=== PATIENT | female | born 1965 | race Two or more races ===

== ENCOUNTER 2024-06-11 09:18 | Outpatient (RCR) | payer MEDICARE, MEDICAID, SELFPAY ==
--- NOTE | 2024-06-23 23:42 | CTCFLWUP_ITS ---
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 S/p right breast mastectomy (12/28/2017) followed by TRAM flap reconstruction S/p TCH/Perjeta followed by Herceptin/Perjeta treatment for a total of 1 year. Intraductal papilloma of the left breast (06/03/2023) REASON FOR TODAY?S VISIT: This is office follow-up visit. Ms. Burdick is here at [facility]. She is complaing of pain in her left arm . stuart new and persistant . no injuries . She also has coronary artery stent placement currently she is on aspirin and clopidogrel . She has few bruises most likely secondary to these medications. She denies any cough, chest pain, abdominal pain or leg cramps. HISTORY OF PRESENT ILLNESS: This is a 58-year-old Northern Irish-speaking female with the following oncology history. 12/28/2017: The patient had surgery done for right breast mass 01/20/2018: Ms. Perry had right breast mastectomy 03/09/2018: Received 1 cycle of TCH chemotherapy at Dr. Lange's office in [place]. 03/30/2018 - 06/22/2018: Received 5 cycles of TCH plus Perjeta. 07/13/2018 - 03/23/2019: She received adjuvant Herceptin and Perjeta every 3 weeks for a total of 12 cy cles. 03/15/2023: MRI of the brain with and without contrast 04/14/2023: PET/CT scan 04/14/2023: Unilateral left breast screening digital mammogram? 04/14/2023: Left breast ultrasound? 05/02/2023: Bilateral diagnostic mammograms? 05/02/2023: Right breast ultrasound 05/16/2023: Bilateral MRIs of the breast with and without contrast 05/17/2023: Repeat left breast ultrasound to be done in the presence of radiologist and biopsy of the mass if it is found in the left breast is requested. PAST MEDICAL HISTORY: Right breast cancer - dx 2018 HTN Diabetes Covid - 2019 Anemia GERD Hyperlipidemia PAST SURGICAL HISTORY: Right breast reconstruction - 2019- Dr. Covarrubias - Right Mastecomy; sentinel lymphadectomy - 01/20/2018 Right breast lumpectomy 12/28/2017 Right ankle fracture repair - 2015 Cholecystec dimtiry - 12/27/2006 Tubal ligation - 12/22/2003 Peritoneal repair femoral and recurrent right inguinal hernia - 07/12/2001 Appendectomy - age 24 MEDICATIONS: 1. aspirin - 81 mg 1 tab In the morning 2. atorvastatin - 80 mg 1 tab Daily 3. carvedilol - 3.125 mg 1 tab Twice a Day 4. Citracal + D Slow Release - 600 mg-12.5 mcg (500 unit) 1 tab one tab po q daily 5. clopidogrel - 75 mg 1 tab Daily 6. ferrous sulfate - 325 mg (65 mg iron) 1 tab one tab po q daily with small glass of orange juic 7. gabapentin - 300 mg 1 Capsule Three times a day 8. Januvia - 100 mg 1 tab Daily 9. lisinopril-hydrochlorothiazide - 20-25 mg 1 tab Daily 10. metFORMIN - 1,000 mg 1 tab Twice a Day 11. Xanax - 0.25 mg 1 tab one po three times a day prn anxiety Medications Last Reconciled by Kenneth Mead MA on 04/16/2024 ALLERGIES: No Known Drug Allergies REVIEW OF SYSTEMS: Neurological: No headache, seizures or blurring of vision. Gastrointestinal: No nausea, vomiting, diarrhea or constipation. Cardiovascular: No palpitations or angina pains. Respiratory: No cough, chest pain or shortness of breath. PHYSICAL EXAMINATION: VITAL SIGNS: Temperature?99, B/P?152/98, Oxygen?Saturation?97% Weight?178?lbs PAIN: 0 - No pain EYE: Conjunctivae is white MOUTH: Oral cavity is dry. Ms. Burdick has reconstructed right breast with TRAM flap. No areas of tenderness noted. No masses palpable. Left breast nipple retraction is present. No areas of tenderness in the left breast. CHEST: Clear to auscultation. No wheezes or rales audible. CARDIAC: Rhythm regular, no murmurs or gallops present. ABDOMEN: Soft. No hepatosplenomegaly. EXTREMITIES: No pedal edema or cyanosis. ASSESSMENT and plan : # 1 Stage IIIa ER negative, OH negative, HER2/marla overexpressed invasive micropapillary carcinoma o f the right breast. Diasgnosed in 12/2017 Initial lumpectomy but margins negative so had right mastectomy and reconstruction She had TCH followed bt TCHP and adjuvant HP completed Doing well with no eveidence of recuurence #2 Left breast retroareolar mass lesion in the left breast Ultrasound-guided biopsy of the left breas t lesion showed intraductal papilloma Planned for mastectomy #3 MRI scan of the brain showed punctate focus increased signal in the right parietal white matter del angel spicious for demyelinating disease. #4bone density normal on calcium and vit D3 #5 left arm pain Ultrasound to evaluate for any blood clot Advised to go to ER but patient wants ultrasound only Follow up once complete Electronically Signed by Dr Jefferson CC: Ricky?Nazario,? PCP: Yomi eBrry Referring: Yomi Berry This document was completed utilizing speech recognition software. Grammatical errors, random word in sertions, pronoun errors, and incomplete sentences are an occasional consequence of this system due t o software limitations, ambient noise, and hardware issues. Any formal questions or concerns about th e content, text or information contained within the body of this dictation should be directly address ed to the provider for clarification.
== END 2024-06-16 23:59 | disposition home or self-care (01) ==
LOC: SCTC 09:18
PROVIDERS: PCP Family Medicine; Referring Provider Family Medicine; Visit Provider Internal Medicine Hematology & Oncology
DX: Z08 Encounter for follow-up examination after completed treatment for malignant neoplasm (principal); Z85.3 Personal history of malignant neoplasm of breast; Z90.11 Acquired absence of right breast and nipple; D24.2 Benign neoplasm of left breast; R90.82 White matter disease, unspecified; M79.602 Pain in left arm
CPT/HCPCS: 99212; G0463

== ENCOUNTER 2024-07-02 12:25 | Outpatient (RCR) | payer MEDICARE, MEDICAID, SELFPAY ==
--- NOTE | 2024-07-16 00:47 | CTCFLWUP_ITS ---
Patient: KENNETH ELISE : 1965 Page 6 of 7 FOLLOW UP NOTE DATE OF SERVICE: 07/02/2024 NAME: KENNETH ELISE ACCOUNT: [id number] : 1965 AGE: 59 INTERVAL HISTORY: Patient doing well. ONCOLOGY HISTORY: DIAGNOSIS: Invasive adenocarcinoma DATE OF DIAGNOSIS: 12/28/2017 STAGE/TNM: [id number] TREATMENT HISTORY: Care?Plan Start?Date Cycle Day Intent HISTORY OF PRESENT ILLNESS: This is a 59-year-old Italian-speaking female with the following oncology history. 12/28/2017: The patient had surgery done for right breast mass 01/20/2018: Ms. Perry had right breast mastectomy 03/09/2018: Received 1 cycle of TCH chemotherapy at Dr. Lange's office in [place]. 03/30/2018 - 06/22/2018: Received 5 cycles of TCH plus Perjeta. 07/13/2018 - 03/23/2019: She received adjuvant Herceptin and Perjeta every 3 weeks for a total of 12 cy cles. 03/15/2023: MRI of the brain with and without contrast 04/14/2023: PET/CT scan 04/14/2023: Unilateral left breast screening digital mammogram? 04/14/2023: Left breast ultrasound? 05/02/2023: Bilateral diagnostic mammograms? 05/02/2023: Right breast ultrasound 05/16/2023: Bilateral MRIs of the breast with and without contrast 05/17/2023: Repeat left breast ultrasound to be done in the presence of radiologist and biopsy of the mass if it is found in the left breast is requested. OTHER MEDICAL HISTORY/CONDITIONS: Right breast cancer - dx 2018 HTN Diabetes Covid - 2019 Anemia GERD Hyperlipidemia Right breast reconstruction - 2019- Dr. 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 aspirin - 81 mg 1 tab In the morning 2. atorvastatin - 80 mg 1 tab Daily 3. calcium - 100 mg 1 Capsule Daily 4. carvedilol - 25 mg 1 tab Twice a Day 5. clonidine - 0.1 mg 1 tab Daily 6. clopidogrel - 75 mg 1 tab Daily 7. Cozaar - 100 mg 1 tab Daily 8. ferrous sulfate - 325 mg (65 mg iron) 1 tab one tab po q daily with small glass of orange juic 9. gabapentin - 300 mg 1 Capsule Three times a day 10. glipiZIDE - 5 mg 1 tab Twice a Day 11. lisinopril-hydrochlorothiazide - 20-25 mg 1 tab Daily 12. metFORMIN - 1,000 mg 1 tab Twice a Day 13. Ozempic - 0.25 mg or 0.5 mg(2 mg/1.5 mL) 1 Weekly Medications Last Reconciled by Abigail Welsh MA on 07/02/2024 ALLERGIES: No Known Drug Allergies REVIEW OF SYSTEMS: A complete 14-point review of systems was performed and is negative except as noted in interval histo ry. PHYSICAL EXAMINATION: VITAL SIGNS: Temperature?98.1, B/P?153/102, Oxygen?Saturation?98% Weight?186?lbs (Change?since?:?-1?lbs) PAIN: 2 - Mild pain ECOG Performance Status: 0 - Asymptomatic and fully active GENERAL APPEARANCE: Appears well, in no apparent distress, appropriately interactive. HEENT: Normocephalic, no temporal wasting, normal conjunctiva, no scleral icterus, normal hearing, li ps without lesions, neck normal range of motion. CARDIOVASCULAR: Not assessed. PULMONARY: Normal respiratory effort, no respiratory distress or use of accessory muscles, speaking i n full sentences, no tachypnea. EXTREMITIES: No pedal edema or cyanosis. SKIN: Normal skin appearance. NEUROLOGIC: Alert and oriented x4. PSHYCHIATRIC: Appropriate affect, mood normal, behavior normal, intact thought and speech. 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 Diasgnosed in 12/2017 Initial lumpectomy but margins negative so had right mastectom y and reconstruction She had TCH followed bt TCHP and adjuvant HP completed Doing well with no eveide nce of recuurence #2 Left breast retroareolar mass lesion in the left breast Ultrasound-guided biopsy of the left breas t lesion showed intraductal papilloma Planned for mastectomy #3 MRI scan of the brain showed punctate focus increased signal in the right parietal white matter del angel spicious for demyelinating disease. #4bone density normal on calcium and vit D3 #5 left arm pain Ultrasound to evaluate for any blood dieter t Advised to go to ER but patient wants ultrasound only Follow up once complete ORDERS: Cbc,cmp,ca 15-3 GI referrel RETURN TO CLINIC: 4 months BILLING AND COMPLIANCE: I reviewed external records from providers outside my specialty as summarized above. I spent a total of 50 minutes on this patient?s care on the day of their visit excluding time spent related to any bi lled procedures. This time includes time spent with the patient as well as time spent documenting in the medical record, reviewing patients records and tests, obtaining history, placing orders, communi cating with other healthcare professionals, counseling the patient, family or caregiver, and/or care coordination for the diagnoses above. Electronically Signed by: Case Jefferson MD T: 12:45 AM CC: Ricky?Nazario,? PCP: Case Jefferson Referring: Yomi Berry This document was completed utilizing speech recognition software. Grammatical errors, random word in sertions, pronoun errors, and incomplete sentences are an occasional consequence of this system due t o software limitations, ambient noise, and hardware issues. Any formal questions or concerns about th e content, text or information contained within the body of this dictation should be directly address ed to the provider for clarification.
== END 2024-07-17 23:59 | disposition home or self-care (01) ==
LOC: SCTC 12:25
PROVIDERS: PCP Family Medicine; Referring Provider Internal Medicine Hematology & Oncology; Visit Provider Internal Medicine Hematology & Oncology
DX: C50.112 Malignant neoplasm of central portion of left female breast (principal); Z85.3 Personal history of malignant neoplasm of breast; Z90.11 Acquired absence of right breast and nipple; M79.602 Pain in left arm
CPT/HCPCS: 99212; G0463

== ENCOUNTER → 2024-07-02 | Outpatient (CLI) | payer MEDICARE, MEDICAID, SELFPAY ==
--- NOTE | 2024-07-02 08:44 | XR_ITS ---
Examination: Duplex scan of the upper extremity, unilateral left Date and time of exam: July 02, 2024 0929 hours INDICATIONS: Left arm swelling beginning 2 months ago Technique: Duplex scan of the extremity veins using B-mode/grayscale imaging and Doppler spectral analysis and color flow Attention is directed to internal echogenicity, compression and augmentation involving these veins, color flow assessment, spectral analysis Findings: Major deep venous structures in the extremity demonstrate normal course and caliber. There is no evidence of deep vein thrombosis. Normal color flow and spectral analysis Impression: Negative for DVT..
[2024-07-02 10:27] LABS: Basophils # (Auto) 0.1 Thou/mm3 (0.0-0.2); Basophils % (Auto) 1 % (0-2.5); Eosinophils # (Auto) 0.5 Thou/mm3 (0.0-0.5); Eosinophils % (Auto) 5 % (0-10); Hematocrit 37.2 % (36.0-46.0); Hemoglobin 12.3 g/dL (12.0-16.0); Immature Granulocytes % (Auto) 0 % (0-0); Immature Granulocytes Auto 0.03 Thou/mm3 (0.00-0.00); Lymphocytes # (Auto) 2.3 Thou/mm3 (1.0-4.8); Lymphocytes % (Auto) 23 % (10-50); Mean Corpuscular HGB Conc 33.1 g/dl (31.0-37.0); Mean Corpuscular Hemoglobin 27.8 pg (25.0-35.0); Mean Corpuscular Volume 84 fL (80-100); Monocytes # (Auto) 0.5 Thou/mm3 (0.0-0.8); Monocytes % (Auto) 5 % (0-12); Neutrophils # (Auto) 6.7 Thou/mm3 (1.8-7.7); Neutrophils % (Auto) 67 % (37-80); Nucleated Red Blood Cell % 0 /100 WBC (0); Platelet Count 282 Thou/mm3 (140-440); RDW Standard Deviation 41.3 fL (36.4-46.3); Red Blood Count 4.43 Miln/mm3 (4.00-5.20)
[2024-07-02 11:13] LABS: Alanine Aminotransferase 20 U/L (10-49); Albumin, Serum 4.9 gm/dL (3.4-4.8); Alkaline Phosphatase 133 U/L (46-116); Anion Gap 9 (7-16); Aspartate Amino Transferase < 8 U/L (0-34); BUN/Creatinine Ratio 23 Ratio (12-20); Bilirubin,Total 0.4 mg/dL (0.3-1.2); Blood Urea Nitrogen 21 mg/dL (9-23); Calcium 10.6 mg/dL (8.3-10.6); Calcium (Corrected) 10.6 mg/dL (8.5-10.1); Carbon Dioxide 24.3 mMol/L (20.0-31.0); Chloride 106 mMol/L (98-107); Creatinine (Component) 0.9 mg/dL (0.6-1.3); Globulin 2.5 gm/dL (2.3-3.5); Glucose 94 mg/dL (74-106); Osmolality,Calculated 280 (275-295); Potassium 4.8 mMol/L (3.4-5.1); Sodium 139 mMol/L (136-145); Total Protein 7.4 gm/dL (5.7-8.2); eGFR > 60 See Note
== END | disposition home or self-care (01) ==
LOC: CDIM 09:08 → SCTO 10:00
PROVIDERS: PCP Family Medicine; Referring Provider Internal Medicine Hematology & Oncology; Visit Provider Radiology Diagnostic Radiology
DX: C50.919 Malignant neoplasm of unspecified site of unspecified female breast (principal); I82.622 Acute embolism and thrombosis of deep veins of left upper extremity
CPT/HCPCS: 36415; 80053; 85025; 93971

== ENCOUNTER → 2024-08-28 | Outpatient (CLI) | payer MEDICARE, SELFPAY ==
[2024-08-28 09:18] LABS: Basophils # (Auto) 0.1 Thou/mm3 (0.0-0.2); Basophils % (Auto) 1 % (0-2.5); Eosinophils # (Auto) 0.3 Thou/mm3 (0.0-0.5); Eosinophils % (Auto) 5 % (0-10); Hematocrit 34.8 % (36.0-46.0); Hemoglobin 11.3 g/dL (12.0-16.0); Immature Granulocytes % (Auto) 0 % (0-0); Immature Granulocytes Auto 0.02 Thou/mm3 (0.00-0.00); Lymphocytes # (Auto) 1.6 Thou/mm3 (1.0-4.8); Lymphocytes % (Auto) 24 % (10-50); Mean Corpuscular HGB Conc 32.5 g/dl (31.0-37.0); Mean Corpuscular Hemoglobin 27.2 pg (25.0-35.0); Mean Corpuscular Volume 84 fL (80-100); Monocytes # (Auto) 0.5 Thou/mm3 (0.0-0.8); Monocytes % (Auto) 8 % (0-12); Neutrophils # (Auto) 4.1 Thou/mm3 (1.8-7.7); Neutrophils % (Auto) 62 % (37-80); Nucleated Red Blood Cell % 0 /100 WBC (0); Platelet Count 265 Thou/mm3 (140-440); RDW Standard Deviation 44.5 fL (36.4-46.3); Red Blood Count 4.15 Miln/mm3 (4.00-5.20); White Blood Count 6.6 Thou/mm3 (3.6-11.0)
[2024-08-28 09:31] LABS: Partial Thromboplastin Time 25.1 Seconds (22.0-36.0); Prothrombin Time 10.7 Seconds (9.0-12.2)
[2024-08-28 09:37] LABS: Anion Gap 6 (7-16); BUN/Creatinine Ratio 24 Ratio (12-20); Blood Urea Nitrogen 19 mg/dL (9-23); Calcium 10.1 mg/dL (8.3-10.6); Carbon Dioxide 26.7 mMol/L (20.0-31.0); Chloride 109 mMol/L (98-107); Creatinine (Component) 0.8 mg/dL (0.6-1.3); Glucose 90 mg/dL (74-106); Osmolality,Calculated 285 (275-295); Potassium 4.2 mMol/L (3.4-5.1); Sodium 142 mMol/L (136-145); eGFR > 60 See Note
== END | disposition home or self-care (01) ==
LOC: COPL 08:29
PROVIDERS: PCP Internal Medicine; Referring Provider Internal Medicine; Visit Provider Internal Medicine
DX: I25.10 Atherosclerotic heart disease of native coronary artery without angina pectoris (principal); I48.91 Unspecified atrial fibrillation
CPT/HCPCS: 36415; 80048; 85025; 85610; 85730

== ENCOUNTER → 2024-09-28 | Outpatient (CLI) | payer MEDICARE, MEDICAID, SELFPAY ==
--- NOTE | 2024-09-28 09:00 | XR_ITS ---
Examination: Breast ultrasound, unilateral, left complete Date and time of exam: September 28, 2024 0900 hrs. Indications: Left breast pain one year, 2:00 11:00 7:00 nodule Left breast sonogram April 05, 2024 Technique: Real-time wallace scale ultrasonographic imaging performed left breast including all 4 quadrants as well as nipple retroareolar and axillary region. Findings: 2:00 nodule lobular margins 7 x 5 mm 3:00 nodule circumscribed 4 x 3 mm 5:00 nodule lobular margins 4 x 4 3 7:00 circumscribed nodules 10:00 circumscribed nodule 4 x 4 Oval mass lobular margins 10 x 4 mm Retroareolar nodule 15 x 16 x 15 mm with breast biopsy marker Impression: BI-RADS Category 4: Suspicious for malignancy Enlarging suspicious mass retroareolar region left breast, recommend rebiopsy
== END | disposition home or self-care (01) ==
PROVIDERS: PCP Family Medicine; Referring Provider Internal Medicine Hematology & Oncology; Visit Provider Internal Medicine Hematology & Oncology
DX: N63.42 Unspecified lump in left breast, subareolar (principal); C50.919 Malignant neoplasm of unspecified site of unspecified female breast
CPT/HCPCS: 76641

== ENCOUNTER 2024-11-28 14:31 | Outpatient (RCR) | payer MEDICARE, MEDICAID, SELFPAY ==
--- NOTE | 2024-12-06 14:17 | CTCFLWUP_ITS ---
Patient: KENNETH BURDICK : 1965 Page 8 of 8 FOLLOW UP NOTE DATE OF SERVICE: 11/28/2024 NAME: KENNETH BURDICK ACCOUNT: [id number] : 1965 AGE: 59 INTERVAL HISTORY: Chief Complaint Suspicious mass in left breast found on ultrasound, desire for mastectomy and breast reconstruction History of Present Illness Kenneth Parks, a patient with a history of breast cancer, presents for follow-up regarding multiple concerns including menopausal symptoms, leg issues, stomach problems, and a recently detected suspicious breast mass. The patient reports ongoing menopausal symptoms, for which she has been considering hormone replacement therapy. However, due to her history of breast cancer, hormone replacement is not recommended. She has been advised to try non- hormonal alternatives such as matcha or black cohosh for symptom relief. Kenneth has been experiencing issues with her legs, which have been managed with blood thinners and dietary changes. A recent ultrasound showed no evidence of blood clots. She also reports stomach problems, for which a referral to gastroenterology was made on July 02 and has been approved. Of significant concern is a suspicious mass detected in the left breast during an ultrasound on September 28. The patient has not yet undergone a biopsy or followed with breast surgeons as recommended. She expresses interest in pursuing a mastectomy, potentially bilateral, with reconstruction. Kenneth previously underwent a mastectomy with TRAM flap reconstruction, performed by Dr. Nguyen (mastectomy) and Dr. Francois (reconstruction). Patient's patient states she want her committed to mastectomy and then follow-up with the plastic surgeon for interval reconstruction she does not want to go to Dr. Ness as previously referred. She is requesting a referral to be sent to Dr Nguyen. She also endorses that she already follows with Patrick and call the office to get to the appointment. She cries frequently during the visit and gets very upset while answering questions to her health. Medications and Supplements - Blood thinners - Matcha - Black cohosh Review of Systems Gastrointestinal: Positive for stomach issues. ONCOLOGY HISTORY: DIAGNOSIS: Invasive adenocarcinoma DATE OF DIAGNOSIS: 12/28/2017 STAGE/TNM: [id number] TREATMENT HISTORY: Care?Plan Start?Date Cycle Day Intent HISTORY OF PRESENT ILLNESS: This is a 59-year-old French-speaking female with the following oncology history. 12/28/2017: The patient had surgery done for right breast mass 01/20/2018: Ms. Perry had right breast mastectomy 03/09/2018: Received 1 cycle of TCH chemotherapy at Dr. Lange's office in [place]. 03/30/2018 - 06/22/2018: Received 5 cycles of TCH plus Perjeta. 07/13/2018 - 03/23/2019: She received adjuvant Herceptin and Perjeta every 3 weeks for a total of 12 cycles. 03/15/2023: MRI of the brain with and without contrast 04/14/2023: PET/CT scan 04/14/2023: Unilateral left breast screening digital mammogram? 04/14/2023: Left breast ultrasound? 05/02/2023: Bilateral diagnostic mammograms? 05/02/2023: Right breast ultrasound 05/16/2023: Bilateral MRIs of the breast with and without contrast 05/17/2023: Repeat left breast ultrasound to be done in the presence of radiologist and biopsy of the mass if it is found in the left breast is requested. OTHER MEDICAL HISTORY/CONDITIONS: Right breast cancer - dx 2018 HTN Diabetes Covid - 2019 Anemia GERD Hyperlipidemia Right breast reconstruction - 2019- Dr. 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 aspirin - 81 mg 1 tab In the morning 2. atorvastatin - 80 mg 1 tab Daily 3. Calcium 600 + D(3) - 600 mg-10 mcg (400 unit) 1 tab 1 tab twice daily 4. carvedilol - 25 mg 1 tab Twice a Day 5. clonidine - 0.1 mg 1 tab Daily 6. clopidogrel - 75 mg 1 tab Daily 7. Cozaar - 100 mg 1 tab Daily 8. glipiZIDE - 5 mg 1 tab Twice a Day 9. metFORMIN - 1,000 mg 1 tab Twice a Day 10. Ozempic - 0.25 mg or 0.5 mg(2 mg/1.5 mL) 1 Weekly Medications Last Reconciled by Kenneth Mead MA on 11/28/2024 ALLERGIES: No Known Drug Allergies REVIEW OF SYSTEMS: A complete 14-point review of systems was performed and is negative except as noted in interval history. PHYSICAL EXAMINATION: VITAL SIGNS: Temperature?98.1, B/P?155/89, Oxygen?Saturation?98% Weight?178?lbs Patient is very upset Right breast with the TRAM reconstruction noted Left breast-patient is very tender so examination not completed LABORATORY DATA: I have personally reviewed and interpreted each of the patient?s relevant lab tests, abnormal findings are below: Date 07/02/24 08/28/24 ??WHITE?BLOOD?COUNT?(Thou/mm3) 10.0 6.6 ??RED?BLOOD?COUNT?(Miln/mm3) 4.43 4.15 ??HEMOGLOBIN?(gm/dl) 12.3 11.3?L ??HEMATOCRIT?(%) 37.2 34.8?L ??PLATELET?COUNT?(Thou/mm3) 282 265 ??NEUTROPHILS?%,?AUTO?(%) 67 62 ??LYMPH?%,?AUTO?(%) 23 24 ??NEUTROPHILS,?AUTO?(Thou/mm3) 6.7 4.1 ??GLUCOSE,RANDOM?(mg/dL) 94 90 ??BLOOD?UREA?NITROGEN?(mg/dL) 21 19 ??CREATININE?(mg/dL) 0.90 0.80 ??SODIUM?(mmol/L) 139 142 ??POTASSIUM?(mmol/L) 4.8 4.2 ??CHLORIDE?(mmol/L) 106 109?H ??CrCl?(CandG)?(ml/min) 68.60 76.96 ??AST/SGOT?(Unit/L) <?8 ? ??ALT/SGPT?(Unit/L) 20 ? ??ALKALINE?PHOSPHATASE?(Unit/L) 133?H ? ??BILIRUBIN,?TOTAL?(mg/dL) 0.4 ? ??PROTEIN?TOTAL?(gm/dl) 7.4 ? ??ALBUMIN,?SERUM?(gm/dl) 4.9?H ? ??GLOBULIN?(gm/dl) 2.5 ? ??ALBUMIN/GLOBULIN?RATIO 2.0 ? ??CALCIUM,?SERUM?(mg/dL) 10.6 10.1 ??CALCIUM?SERUM?(CORRECTED)?(mg/dL) 10.6?H ? 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 Diasgnosed in 12/2017 Initial lumpectomy but margins negative so had right mastectomy and reconstruction She had TCH followed bt TCHP and adjuvant HP completed Doing well with no eveidence of recuurence Kenneth Burdick., a patient with a history of breast cancer and mastectomy with TRAM flap reconstruction, presents for follow-up regarding a suspicious mass in the left breast found on ultrasound. Suspicious breast mass Assessment: A recent ultrasound on September 28 revealed a suspicious mass in the left breast, warranting further investigation. The patient has not yet undergone a biopsy or consulted with breast surgeons as recommended. Given the patient's history of breast cancer, this finding requires immediate attention to rule out recurrence or new primary breast cancer. Plan: - Schedule breast biopsy, ultrasound, and mammogram to further evaluate the suspicious mass - Refer to breast surgeon for consultation and potential mastectomy with reconstruction - Consider referral to a surgeon skilled in reconstruction techniques for optimal cosmetic results - Inform patient about risks, benefits, and alternatives of mastectomy and reconstruction History of breast cancer Assessment: Patient has a history of breast cancer treated with mastectomy and TRAM flap reconstruction. Currently, she is not on any hormone-blocking medication, and her ERP (likely referring to ER/DE status) is negative. The patient is experiencing normal menopause without hormone replacement therapy due to the increased risk of cancer recurrence associated with hormone replacement in breast cancer survivors. Plan: - Continue to avoid hormone replacement therapy - Discuss non-hormonal options for managing menopausal symptoms, such as matcha or black cohosh - Monitor for signs of cancer recurrence during follow-up visits Gastrointestinal issues Assessment: Patient has reported stomach issues, necessitating a referral to gastroenterology for further evaluation. Plan: - Follow up on gastroenterology referral approved on July 02 - Advise patient that she can see any pet care worker without needing additional authorization Vascular concerns Assessment: Patient has a history of leg issues, possibly related to vascular problems. A recent ultrasound showed no evidence of blood clots. Plan: - Continue current anticoagulation therapy as prescribed by primary care physician - Reinforce importance of dietary modifications to support vascular health - Monitor for any new or worsening leg symptomsLeft breast retroareolar mass lesion in the left breast Again patient has been referred for biopsy but is still not completed Patient did had in 2022 ultrasound-guided biopsy of the left breast lesion showed intraductal papilloma and at that time was planned for mastectomy but Ms. Burdick could not find a breast surgeon whom she likes I will send patient back to Dr. Nguyen Patient will explore reconstruction once mastectomy is completed by him She understand that reconstruction once mastectomy is complete is very disfiguring in most cases as she will need implant to preserve the shape of the breast. Patient had a negative biopsy in the past with interventional radiology and would like to follow-up with the Dr Nguyen now #3 MRI scan of the brain 02/2023 showed punctate focus increased signal in the right parietal white matter suspicious for demyelinating disease. #4bone density normal on calcium and vit D3 ORDERS: Order # Description RETURN TO CLINIC: BILLING AND COMPLIANCE: I reviewed external records from providers outside my specialty as summarized above. I spent a total of 50 minutes on this patient?s care on the day of their visit excluding time spent related to any billed procedures. This time includes time spent with the patient as well as time spent documenting in the medical record, reviewing patients records and tests, obtaining history, placing orders, communicating with other healthcare professionals, counseling the patient, family or caregiver, and/or care coordination for the diagnoses above. Electronically Signed by: {Object.Sanct_ID*PnP.NameFL@M}, {Object.Sanct_ID*PnP.Suffix@U} D: {Object.Sanct_Date} T: {Object.Sanct_Time} CC: Ricky?Nazario,? PCP: Yomi Berry Referring: Yomi Berry This document was completed utilizing speech recognition software. Grammatical errors, random word insertions, pronoun errors, and incomplete sentences are an occasional consequence of this system due to software limitations, ambient noise, and hardware issues. Any formal questions or concerns about the content, text or information contained within the body of this dictation should be directly addressed to the provider for clarification.
== END 2024-12-15 23:59 | disposition home or self-care (01) ==
LOC: SCTC 14:31
PROVIDERS: PCP Family Medicine; Referring Provider Family Medicine; Visit Provider Internal Medicine Hematology & Oncology
DX: R92.8 Other abnormal and inconclusive findings on diagnostic imaging of breast (principal); Z85.3 Personal history of malignant neoplasm of breast; Z90.11 Acquired absence of right breast and nipple
CPT/HCPCS: 99212; G0463

== ENCOUNTER 2024-12-26 07:51 | Outpatient (RCR) | payer MEDICARE, MEDICAID, SELFPAY | END 2025-01-14 23:59 | disposition home or self-care (01) | LOC: SCTC 07:51 | PROVIDERS: PCP Family Medicine; Referring Provider Family Medicine; Visit Provider Internal Medicine Hematology & Oncology | DX: Z85.3 Personal history of malignant neoplasm of breast (principal); Z90.11 Acquired absence of right breast and nipple; Z92.21 Personal history of antineoplastic chemotherapy; R92.8 Other abnormal and inconclusive findings on diagnostic imaging of breast | CPT/HCPCS: 36415 ==

== ENCOUNTER → 2025-01-07 | Outpatient (CLI) | payer MEDICARE, MEDICAID, SELFPAY ==
[2025-01-07 09:41] LABS: Basophils # (Auto) 0.1 Thou/mm3 (0.0-0.2); Basophils % (Auto) 1 % (0-2.5); Eosinophils # (Auto) 0.3 Thou/mm3 (0.0-0.5); Eosinophils % (Auto) 4 % (0-10); Hematocrit 35.3 % (36.0-46.0); Hemoglobin 11.4 g/dL (12.0-16.0); Immature Granulocytes % (Auto) 0 % (0-0); Immature Granulocytes Auto 0.02 Thou/mm3 (0.00-0.00); Lymphocytes # (Auto) 2.3 Thou/mm3 (1.0-4.8); Lymphocytes % (Auto) 28 % (10-50); Mean Corpuscular HGB Conc 32.3 g/dl (31.0-37.0); Mean Corpuscular Hemoglobin 27.1 pg (25.0-35.0); Mean Corpuscular Volume 84 fL (80-100); Monocytes # (Auto) 0.6 Thou/mm3 (0.0-0.8); Monocytes % (Auto) 7 % (0-12); Neutrophils # (Auto) 4.9 Thou/mm3 (1.8-7.7); Neutrophils % (Auto) 60 % (37-80); Nucleated Red Blood Cell % 0 /100 WBC (0); Platelet Count 244 Thou/mm3 (140-440); RDW Standard Deviation 41.8 fL (36.4-46.3); White Blood Count 8.2 Thou/mm3 (3.6-11.0)
[2025-01-07 09:50] LABS: INR 0.9 (0.9-1.3); Partial Thromboplastin Time 25.4 Seconds (22.0-36.0); Prothrombin Time 10.3 Seconds (9.0-12.2)
[2025-01-07 09:56] LABS: Anion Gap 7 (7-16); BUN/Creatinine Ratio 20 Ratio (12-20); Blood Urea Nitrogen 16 mg/dL (9-23); Calcium 9.9 mg/dL (8.3-10.6); Carbon Dioxide 27.7 mMol/L (20.0-31.0); Chloride 106 mMol/L (98-107); Creatinine (Component) 0.8 mg/dL (0.6-1.3); Glucose 93 mg/dL (74-106); Osmolality,Calculated 282 (275-295); Potassium 4.5 mMol/L (3.4-5.1); Sodium 141 mMol/L (136-145); eGFR > 60 See Note
== END | disposition home or self-care (01) ==
LOC: COPL 09:03
PROVIDERS: PCP Family Medicine; Referring Provider Internal Medicine; Visit Provider Internal Medicine
DX: I25.10 Atherosclerotic heart disease of native coronary artery without angina pectoris (principal); I48.91 Unspecified atrial fibrillation
CPT/HCPCS: 36415; 80048; 85025; 85610; 85730

== ENCOUNTER 2025-01-11 16:29 | Inpatient (IN) | payer MEDICARE, MEDICAID, SELFPAY ==
[2025-01-11 17:08] VITALS: BP 131/84; PULSE 88; RESP 20; TEMP 36.9; O2SAT 99; BMI 30.5
--- NOTE | 2025-01-11 17:26 | EKG_ITS ---
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
--- NOTE | 2025-01-11 17:28 | PD.EDABDPN ---
ED Abdominal Pain RME/HPI General Chief Complaint: Abdominal Pain Stated complaint: ABD PAIN, N/V, CONSTIPATION Time seen by provider: 01/11/25 16:35 Arrival date/time: 01/11/25 16:29 RME / HPI RME / HPI narrative: 59-year-old female patient was brought in by family for evaluation regarding epigastric pain. Patient's been having epigastric pain since early this morning associated with vomiting, and also complained of constipation. Patient vomited several times a day cannot take anything down, vomiting is nonbloody. Patient had a procedure done yesterday angiogram with stent placement yesterday. Patient denies any other complaints. Related Data Home Medications ?Medication ?Instructions ?Recorded ?Confirmed metformin 1,000 mg tablet 1,000 mg PO BID 01/19/18 04/18/24 aspirin 81 mg tablet,delayed 81 mg PO QDAY 04/18/24 04/18/24 release Held on 04/20/24. Instructions: Resume on 04/22/24. atorvastatin 80 mg tablet (Lipitor) 80 mg PO QPM 04/18/24 04/18/24 carvedilol 3.125 mg tablet 3.125 mg PO BID 04/18/24 04/18/24 clopidogrel 75 mg tablet (Plavix) 75 mg PO QDAY 04/18/24 04/18/24 Held on 04/20/24. Instructions: Resume on 04/22/24. ferrous sulfate 325 mg (65 mg 325 mg PO QDAY 04/18/24 04/18/24 iron) tablet gabapentin 300 mg capsule 300 mg PO TID 04/18/24 04/18/24 sitagliptin phosphate 100 mg 100 mg PO QDAY 04/18/24 04/18/24 tablet (Januvia) Previous Rx's ?Medication ?Instructions ?Recorded docusate sodium 100 mg capsule 100 mg PO BID #20 caps 04/20/24 (Colace) hydrocodone 5 mg-acetaminophen 325 1 tab PO Q8H PRN pain (scale score 04/20/24 mg tablet 7-10) #10 tabs Allergies Allergy/AdvReac Type Severity Reaction Status Date / Time No Known Allergies Allergy Verified 04/18/24 07:36 Review of Systems Review of Systems Narrative Review of Systems: Review of system reviewed and within normal limits except mentioned in HPI ED Exam Narrative Physical exam: VITAL SIGNS: Reviewed. GENERAL APPEARANCE: Alert and interactive, follows commands, no acute distress, HEAD AND FACE: Non-traumatic. ENT: PERRL, pink conjunctivitis, eyelid no trauma, Mucous membrane moist. NECK: Supple, nontender, no nuchal rigidity. CHEST: No tenderness, no crepitus, no paradoxical movement, no retractions. LUNGS: Clear, well ventilated, symmetric, no rales, no wheezing, no ronchi, no stridor, good breath sounds bilaterally. HEART: Regular rate, regular rhythm, no murmur, no gallops. ABDOMEN: Soft, positive bowel sounds, nondistended, no guarding, epigastric tenderness, no rebound, no masses, RECTAL: Deferred. GENITAL: Deferred. NEUROLOGICAL: Gross motor function intact sensory function intact, Appropriate for age. MUSCULOSKELETAL: low back nontender, full range of motion. EXTREMITIES: Nontender, full range of motion. SKIN: Color pink, dry, no rash, no lacerations, no abrasions, no contusions. LYMPHATICS: Deferred. Course Quality Measures none Orders Category Date Time Status COVID-19 Screening Questionnaire NOW Care 01/11/25 21:[address] Screening NOW Care 01/11/25 17:[address] Screening NOW Care 01/11/25 18:44 Active Decision to Admit X1 Care 01/11/25 21:48 Completed EKG (ED ONLY) *Do not use* NOW Care 01/11/25 17:26 Completed Insert IV NOW Care 01/11/25 19:26 Active MRI Screening NOW Care 01/11/25 18:23 Completed Consult to Cardiology Stat Cons 01/11/25 21:[address] abdomen pelvis w con Stat Exams 01/11/25 18:44 Completed EKG (ED Only) Stat Exams 01/11/25 17:26 Draft US gall bladder Stat Exams 01/11/25 18:44 Completed Acetaminophen Stat Lab 01/11/25 17:33 Completed CBC Stat Lab 01/11/25 17:33 Completed Comprehensive Metabolic Panel Stat Lab 01/11/25 17:33 Completed Hepatitis Acute Panel Stat Lab 01/11/25 17:32 Completed Lipase Stat Lab 01/11/25 17:33 Completed Partial Thromboplastin Time Stat Lab 01/11/25 17:33 Completed Prothrombin Time with INR Stat Lab 01/11/25 17:33 Completed UA, C/S IF [Urinalysis, C/S if Indicated] Stat Lab 01/11/25 17:26 Ordered Famotidine Inj [Pepcid Inj] Med 01/11/25 17:27 Discontinued 20 mg IVP X1 ONE Ondansetron Inj [Zofran Inj] Med 01/11/25 17:25 Discontinued 4 mg IVP X1 ONE Sodium Chloride 0.9% 1000 ml [Ns] 1,000 ml Med 01/11/25 17:26 Discontinued IV 999 mls/hr Vital Signs Vital signs: Vital Signs Temperature 98.5 F 01/11/25 17:08 Pulse Rate 88 01/11/25 17:08 Respiratory Rate 20 01/11/25 17:08 Blood Pressure 131/84 H 01/11/25 17:08 Pulse Oximetry (%) 99 01/11/25 17:08 Oxygen Delivery Method Room Air 01/11/25 17:08 Abdominal Pain MDM MDM Narrative MDM Narrative:: 59-year-old female patient was brought in by family for evaluation regarding epigastric pain. Patient's been having epigastric pain since early this morning associated with vomiting, and also complained of constipation. Patient vomited several times a day cannot take anything down, vomiting is nonbloody. Patient had a procedure done yesterday angiogram with stent placement yesterday. Patient denies any other complaints. Patient's workup is significant for slight transaminitis, and slight elevated total bili. Patient symptoms could be contrast dye related. Currently patient is not a candidate for MRCP due to recent stent placement. Patient verbalized significant improvement after patient received IV fluid and Zofran. Spoke with Dr. Hernández, bread wrapper operator, told me to admit the patient for symptomatic treatment regarding his nausea and vomiting transaminitis and rest stent placement. Spoke with hospitalist, who admitted the patient. Patient data External records reviewed:: None Clinical information provided by:: patient Social determinants that could affect healthcare access:: none Patient has the following chronic illnesses:: CAD, hypertension diabetes mellitus How is presenting disease/condition affected by chronic disease/condition?: exacerbated by Evaluation data The following diagnostics were reviewed and interpreted by me:: lab results, radiology exam(s) and EKG tracing(s) Lab and/or radiology exams considered but not ordered:: None Interpretation Summary: EKG as interpreted by me showed normal sinus rhythm, no ST segment elevation or depression noted, no ischemic changes. Medications / Prescriptions Medications or Prescriptions considered but not ordered:: None Medication administrations:: Medication Administration History Aspirin (Aspirin Ec 81 Mg Tabec) 81 mg PO QDAY [facility] Stop: 02/11/25 08:59 Last Admin: 01/12/25 11:27 Dose: 81 mg Documented By: DB Carvedilol (Carvedilol 12.5 Mg Tablet) 25 mg PO BIDWM VINIAT Stop: 02/11/25 11:29 Last Admin: 01/12/25 12:15 Dose: 25 mg Documented By: CG Clopidogrel Bisulfate (Clopidogrel Bisulfate 75 Mg Tablet) 75 mg PO QDAY [facility] Stop: 02/11/25 08:59 Last Admin: 01/12/25 11:27 Dose: 75 mg Documented By: DB Dextrose (Dextrose 50%-Water Inj 50 Ml Syringe) 25 ml IV Q15MIN PRN PRN Reason: BG 50-70 responsive npo pt Stop: 02/10/25 23:04 Dextrose (Dextrose 50%-Water Inj 50 Ml Syringe) 50 ml IV Q15MIN PRN PRN Reason: BG <50 OR BG <70 & pt unresponsive Stop: 02/10/25 23:04 Glucagon (Glucagon Inj 1 Mg Vial) 1 mg IM Q15MIN PRN PRN Reason: BG <70, and no IV access Sodium Chloride (Ns) 1,000 mls @ 80 mls/hr IV .[id number] ONE Stop: 01/12/25 13:29 Last Admin: 01/12/25 03:28 Dose: 80 mls/hr Documented By: ALEXIS(2) Insulin Human Lispro (Insulin Lispro (Admelog) 1 Unit/0.01 Ml Unit) 0 unit SC [facility]; Protocol Stop: 02/11/25 11:29 Last Admin: 01/12/25 11:31 Dose: Not Given Documented By: LAWRENCE Non-Admin Reason: Per Protocol Ondansetron HCl (Ondansetron Inj 2 Mg/Ml Inj 2 Ml) 4 mg IVP Q6H PRN; Protocol PRN Reason: NAUSEA OR VOMITING Stop: 02/10/25 22:59 Pantoprazole Sodium (Pantoprazole 40 Mg Tablet) 40 mg PO QDAY [facility] Stop: 02/11/25 08:59 Last Admin: 01/12/25 11:27 Dose: 40 mg Documented By: LAWRENCE Polyethylene Glycol (Polyethylene Glycol 17 Gm Packet) 17 gm PO QDAY [facility] Stop: 02/11/25 08:59 Last Admin: 01/12/25 12:08 Dose: Not Given Documented By: CG Non-Admin Reason: Patient Refused Sennosides (Senna Tablet) 1 tab PO QDAY [facility]; Protocol Stop: 02/11/25 08:59 Last Admin: 01/12/25 11:27 Dose: 1 tab Documented By: LAWRENCE Discontinued Medications Bisacodyl (Bisacodyl 10 Mg Supp) 10 mg MA STAT STA; Protocol Stop: 01/12/25 02:05 Last Admin: 01/12/25 03:24 Dose: 10 mg Documented By: CG(2) Carvedilol (Carvedilol 3.125 Mg Tablet) 3.125 mg PO BIDWM [facility] Stop: 02/11/25 08:59 Carvedilol (Carvedilol 12.5 Mg Tablet) 25 mg PO BIDWM [facility] Stop: 02/11/25 07:59 Famotidine (Famotidine Inj 10 Mg/Ml Vial 2 Ml) 20 mg IVP X1 ONE Stop: 01/11/25 17:28 Last Admin: 01/11/25 19:38 Dose: 20 mg Documented By: EUGENIO Sodium Chloride (Ns) 1,000 mls @ 999 mls/hr IV .Q1H1M ONE Stop: 01/11/25 18:26 Last Infusion: 01/11/25 21:14 Dose: Infused Documented By: Admin: 01/11/25 20:08 Dose: 999 mls/hr Documented By: EUGENIO Insulin Human Lispro (Insulin Lispro (Admelog) 1 Unit/0.01 Ml Unit) 0 unit SC [facility]; Protocol Stop: 02/11/25 07:29 Last Admin: 01/12/25 08:13 Dose: Not Given Documented By: CG Non-Admin Reason: Contraindicated Ondansetron HCl (Ondansetron Inj 2 Mg/Ml Inj 2 Ml) 4 mg IVP X1 ONE; Protocol Stop: 01/11/25 17:26 Last Admin: 01/11/25 19:35 Dose: 4 mg Documented By: EUGENIO IV fluids, Zofran, Pepcid Consultations Consultation(s) initiated? (list below): Yes Consultation #1 (Physician, Specialty, Details): Dr. Hernández, bread wrapper operator, take your doctor Diagnosis Differential diagnosis abdominal pain: abdominal pain, gastroenteritis and pancreatitis Most likely diagnosis given after review of the tests above:: Abdominal pain, nausea vomiting, transaminitis Admission Indicated Admission indicated?: indicated Explain why admission is indicated or not indicated:: For further management Admission Request Was there a request for admission?: No Disposition Plan Disposition Plan: Admit Discharge Plan Plan Patient Disposition: Admit Acute Care w/in Hospital Discharge Disposition comment: Stable Problem List Clinical Impression: Abdominal pain, Nausea & vomiting, Transaminitis
[2025-01-11 17:45] LABS: Basophils # (Auto) 0.0 Thou/mm3 (0.0-0.2); Basophils % (Auto) 0 % (0-2.5); Eosinophils # (Auto) 0.0 Thou/mm3 (0.0-0.5); Eosinophils % (Auto) 0 % (0-10); Hematocrit 36.0 % (36.0-46.0); Hemoglobin 12.4 g/dL (12.0-16.0); Immature Granulocytes Auto 0.02 Thou/mm3 (0.00-0.00); Lymphocytes # (Auto) 0.9 Thou/mm3 (1.0-4.8); Lymphocytes % (Auto) 9 % (10-50); Mean Corpuscular HGB Conc 34.4 g/dl (31.0-37.0); Mean Corpuscular Hemoglobin 27.9 pg (25.0-35.0); Mean Corpuscular Volume 81 fL (80-100); Monocytes # (Auto) 0.4 Thou/mm3 (0.0-0.8); Monocytes % (Auto) 4 % (0-12); Neutrophils # (Auto) 8.7 Thou/mm3 (1.8-7.7); Neutrophils % (Auto) 86 % (37-80); Nucleated Red Blood Cell # 0.00 Thou/mm3 (0.00-0.00); Nucleated Red Blood Cell % 0 /100 WBC (0); Platelet Count 223 Thou/mm3 (140-440); RDW Standard Deviation 39.9 fL (36.4-46.3); Red Blood Count 4.45 Miln/mm3 (4.00-5.20); White Blood Count 10.2 Thou/mm3 (3.6-11.0)
[2025-01-11 17:59] LABS: INR 1.0 (0.9-1.3); Partial Thromboplastin Time 23.6 Seconds (22.0-36.0); Prothrombin Time 11.2 Seconds (9.0-12.2)
[2025-01-11 18:03] LABS: Alanine Aminotransferase 638 U/L (10-49); Albumin, Serum 4.6 gm/dL (3.4-4.8); Albumin/Globulin Ratio 1.6 (1.2-2.2); Alkaline Phosphatase 270 U/L (46-116); Anion Gap 10 (7-16); BUN/Creatinine Ratio 17 Ratio (12-20); Bilirubin,Total 2.1 mg/dL (0.3-1.2); Blood Urea Nitrogen 15 mg/dL (9-23); Calcium 10.0 mg/dL (8.3-10.6); Calcium (Corrected) 10.0 mg/dL (8.5-10.1); Carbon Dioxide 25.1 mMol/L (20.0-31.0); Chloride 105 mMol/L (98-107); Creatinine (Component) 0.9 mg/dL (0.6-1.3); Estimated Creatinine Clearance 68.3 mL/min (>60); Globulin 2.9 gm/dL (2.3-3.5); Glucose 149 mg/dL (74-106); Lipase 41 U/L (12-53); Osmolality,Calculated 283 (275-295); Potassium 4.1 mMol/L (3.4-5.1); Sodium 140 mMol/L (136-145); Total Protein 7.5 gm/dL (5.7-8.2); eGFR > 60 See Note
[2025-01-11 18:07] LABS: Aspartate Amino Transferase > 1000 U/L (0-34)
--- NOTE | 2025-01-11 18:44 | XR_ITS ---
Examination: Abdomen sonogram, Limited Date and time of exam: January 04,025 2120 hours INDICATIONS: Right upper abdominal pain beginning one year ago Technique: Real-time wallace scale transabdominal sonographic images of the upper abdomen obtained. Findings: Gallbladder not visualized Common bile duct 0.5 cm Pancreatic head 1.9 cm Liver 16 cm fatty infiltration Normal hepatopedal portal venous on IVC IMPRESSION: Normal common bile duct Fatty infiltration throughout the liver
--- NOTE | 2025-01-11 18:44 | XR_ITS ---
Examination: CT abdomen with intravenous contrast CT pelvis with intravenous contrast 2-D coronal reconstructions 2-D sagittal reconstructions Date and time of exam:January 11, [address] scan December 22, 2023 INDICATIONS: Abdominal pain constipation today, diagnosis breast cancer restaging posttreatment. CTDI: vol (mGy) 12 DLP: (mGycm) 630 Technique: Multiple axial sections of the abdomen and pelvis have been obtained. 64 slice high-resolution scanner used. 3 mm axial sections have been obtained, post intravenous injection 60 cc [id number] 2-D sagittal, coronal reconstructions obtained. Low dose protocols were performed. One or more of the following dose reduction techniques were used; automated exposure control, adjustment of the mA and/or KV according to patient size, use of iterative reconstruction technique. Findings: Small retrocardiac gastric hernia Left breast biopsy marker No focal liver or splenic lesions Absent gallbladder No pancreatic mass 16 mm left adrenal nodule No hydronephrosis Aorta normal size No pericecal inflammatory changes No bowel obstruction Anteverted uterus Bladder intact Moderate osteopenia IMPRESSION: 16 mm left adrenal nodule, recommend elective MRI abdomen follow up pre and postcontrast adrenal gland protocol No hydronephrosis No abdominal lymphadenopathy. No obstruction No pericecal inflammatory change Colonic diverticulosis, no diverticulitis
[2025-01-11 19:05] LABS: Acetaminophen < 2.0 mcg/mL (10.0-20.0)
[2025-01-11] MEDS: ONDANSETRON INJ 2 MG/ML INJ 2 ML 4 MG IVP (19:35)
[2025-01-11] MEDS: FAMOTIDINE INJ 10 MG/ML VIAL 2 ML 20 MG IVP (19:38)
[2025-01-11 19:45] LABS: Hepatitis A Antibody IgM Non Reactive (Non React); Hepatitis B Core Antibody IgM Non Reactive (Non React); Hepatitis B Surface Antigen Non Reactive (Non React); Hepatitis C Antibody Non Reactive (Non React)
[2025-01-11] MEDS: SODIUM CHLORIDE 0.9% 1000 ML 1,000 ML 999 ML IV (20:08)
[2025-01-11 23:46] LABS: Beta Hydroxybutyrate 0.1 mmol/L (<0.6)
[2025-01-11 23:51] VITALS: BP 154/92; PULSE 70; PULSE 79; RESP 18; RESP 20; TEMP 36.9; O2SAT 100; O2SAT 99
[2025-01-12] VITALS (39 sets, daily range): BP systolic 99–204; BP diastolic 69–115; PULSE 66–92; RESP 9–98; TEMP 36.3–36.7; O2SAT 93–98; BMI 30.5; BMI 30.4
--- NOTE | 2025-01-12 03:00 | PD.RESHP ---
Documentation for date of: 01/12/25 [facility] History of Present Illness History of present illness: CC: Abdominal Pain Patient is a 59-year-old female with a past medical history of CAD s/p 3 stents most recent one occurring on 01/10/2025 [facility] by Dr. Hernández, hypertension, hyperlipidemia, and diabetes mellitus type 2 [id number],history of breast cancer s/p right mastectomy. Patient presented to the emergency room via private car with a chief complaint of diffuse abdominal tenderness and constipation last bowel movement on 01/10/2025 but passing gas. Patient reported 1 emesis episode of emesis no rehana blood noted no history of varices or cirrhosis. Patient unable to keep food down as well as eaten about half a cup of soup. Patient able to consume fluids. Denied chest pain, palpitations or diaphoresis. Patient stated abdominal tenderness has been ongoing off and on for over a year with episodes of diarrhea and constipation. Patient denied any past medical history of celiac disease and denied history of Crohn's disease. Diffuse tenderness localized to the suprapubic region. Patient denied pain with urination or increased frequency. Dr. Hernández recommending patient be admitted given recent PCI. ER course Vitals: Blood pressure 131/84, HR HR 88, RR 20, temperature 98.5 [id number] on room air. WBC count 10.2 PT 11.2, INR 1-within normal limits. CMP: NA 140, K4.1, BUN 15, creatinine 0.9, GFR greater than 60, glucose 149 Total bili 2.1 AST greater than 1000 (H), ALT 638 (H), alkaline phosphatase 270 (H) Acetaminophen less than 10 Hepatitis panel negative Abdomen pelvis CT: 16mm left adrenal nodule, no hydronephrosis, no obstruction, no cecal inflammatory changes, no diverticulitis Ultrasound gallbladder: Gallbladder not visualized (status post cholecystectomy), fatty infiltration through out the liver. Patient is being admitted for acute liver injury and diffuse abdominal tenderness. PMH: Hypertension, hyperlipidemia, diabetes mellitus type 2, CAD status post PCI 3 stents, GERD Past Surgical History: Cholecystectomy, appendectomy, hernia repair x 4 Right breast reconstruction - 2019- Dr. Covarrubias - Right Mastecomy; sentinel lymphadectomy - 01/20/2018 Right breast lumpectomy 12/28/2017 Right ankle fracture repair - 2016 Tubal ligation - 12/22/2003 Past Family History: denied family history of cardiac disease Home Medication: Plavix 75 daily Carvedilol 25 mg twice daily Losartan 100 mg daily Atorvastatin 80 mg p.o. at bedtime Metformin 1000 twice daily Glipizide 5 mg twice daily Ozempic 2.5 mg subcu once weekly Social History: Vaping, Marijuana for about 1 year Allergies: NOne Code Status: Review of Systems Review of Systems Narrative Review of Systems: General appearance: NO weight change, NO fatigue, NO weakness, NO fever, NO chills, NO night sweats, No cough Skin: NO rash, NO itching, NO sores, NO moles HEENT: NO Trauma, NO nausea, NO vomiting, NO visual changes, NO blurry vision, NO double vision, NO tinnitus, NO vertigo, NO ear discharge, NO rhinorrhea, NO stuffiness, NO sneezing, NO allergy, NO epistaxis. NO Hoarseness, NO sore throat, NO swollen neck. Cardiac: NO Palpitations, NO dyspnea on exertion, NO orthopnea, NO paroxysmal nocturnal dyspnea, NO edema Respiratory: NO Shortness of Breath, NO Wheezing, NO Cough, NO Sputum, NO hemoptysis GI:NO appetite, YES nausea, NO vomiting, NO dysphagia, NO changes in bowel frequency, NO stool color, NO diarrhea, YES constipation, NO hemetemesis, NO hemorrhoids, NO melena, NO hematechezia, Yes abdominal pain, NO jaundice Renal: NO frequency, NO hesitancy, NO urgency, NO hematuria, NO nocturia, NO incontinence MSK: NO muscle weakness, NO gout, NO arthritis, NO muscle stiffness Neuro: NO headaches, NO tremors, NO weakness, NO paralysis, NO seizures, NO loss of consciousness, NO numbness. Hem: NO anemia, NO easy bruising/bleeding, NO petechiae, NO purpura Endo: NO heat/cold intolerance, NO excessive sweating, NO polyuria, NO polydipsia, NO polyphagia, NO thyroid problems, Yes diabetes Pysch: NO mood, NO anxiety, NO depression Exam Vital Signs Temp Pulse Resp BP Pulse Ox O2 Del Method 98.5 F 83 14 154/92 H 99 Room Air 01/11/25 23:51 01/12/25 02:11 01/12/25 02:11 01/11/25 23:51 01/11/25 23:51 01/11/25 23:51 Narrative Exam General Appearance: Alert & Oriented X3, well-nourished female who is lying in bed in mild discomfort HEENT: Skull symmetrical and atraumatic. Conjunctivae pink and moist. Pupils equal, round, reactive to light and accommodation (PERRL). External ear without lesion or discharge. Straight, nares patient, mucosa pink, no discharge. N Cardio: Normal Rate and Rhythm with S1 and S2 heart sounds. No murmurs or extra heart sounds auscultated. No bruits on carotid auscultation. No peripheral edema or cyanosis. Lungs: Symmetric with good expansion. Chest and back non-tender. Breath sounds vesicular without crackles, wheezing or rhonchi Abdomen: diffuse-tender, Non-distended, Normal Reactive Bowel Sounds Neuro: Alert, cooperative, oriented to person, place, and time. Speech clear. CN grossly intact. Upper motor strength 5/5 and Lower motor strength 5/5. Sensation intact. Results: Labs 01/12/25 05:16 01/12/25 05:16 Labs: Short CBC 01/11/25 Range/Units 17:33 WBC 10.2 (3.6-11.0) Thou/mm3 Hgb 12.4 (12.0-16.0) g/dL Hct 36.0 (36.0-46.0) % Plt Count 223 (140-440) Thou/mm3 BMP 01/11/25 17:33 Sodium 140 Potassium 4.1 Chloride 105 Carbon Dioxide 25.1 BUN 15 Creatinine 0.9 Glucose 149 H Calcium 10.0 Liver Function 01/11/25 Range/Units 17:33 Total Bilirubin 2.1 H (0.3-1.2) mg/dL AST > 1000 H* (0-34) U/L ALT 638 H* (10-49) U/L Alkaline Phosphatase 270 H (46-116) U/L Albumin 4.6 (3.4-4.8) gm/dL Quality Measures Quality Measures VTE prophylaxis (compression device ) Medications Home Medications and Allergies Home Medications ?Medication ?Instructions ?Recorded ?Confirmed ?Type metformin 1,000 mg tablet 1,000 mg PO BID 01/19/18 04/18/24 History aspirin 81 mg tablet,delayed 81 mg PO QDAY 04/18/24 04/18/24 History release Held on 04/20/24. Instructions: Resume on 04/22/24. atorvastatin 80 mg tablet (Lipitor) 80 mg PO QPM 04/18/24 04/18/24 History carvedilol 3.125 mg tablet 3.125 mg PO BID 04/18/24 04/18/24 History clopidogrel 75 mg tablet (Plavix) 75 mg PO QDAY 04/18/24 04/18/24 History Held on 04/20/24. Instructions: Resume on 04/22/24. ferrous sulfate 325 mg (65 mg 325 mg PO QDAY 04/18/24 04/18/24 History iron) tablet gabapentin 300 mg capsule 300 mg PO TID 04/18/24 04/18/24 History sitagliptin phosphate 100 mg 100 mg PO QDAY 04/18/24 04/18/24 History tablet (Januvia) Allergies Allergy/AdvReac Type Severity Reaction Status Date / Time No Known Allergies Allergy Verified 04/18/24 07:36 Visit Medications Aspirin (Aspirin Ec 81 Mg Tabec) 81 mg PO QDAY [facility] Stop: 02/11/25 08:59 Carvedilol (Carvedilol 12.5 Mg Tablet) 25 mg PO BIDWM [facility] Stop: 02/11/25 07:59 Clopidogrel Bisulfate (Clopidogrel Bisulfate 75 Mg Tablet) 75 mg PO QDAY [facility] Stop: 02/11/25 08:59 Dextrose (Dextrose 50%-Water Inj 50 Ml Syringe) 25 ml IV Q15MIN PRN PRN Reason: BG 50-70 responsive npo pt Stop: 02/10/25 23:04 Dextrose (Dextrose 50%-Water Inj 50 Ml Syringe) 50 ml IV Q15MIN PRN PRN Reason: BG <50 OR BG <70 & pt unresponsive Stop: 02/10/25 23:04 Glucagon (Glucagon Inj 1 Mg Vial) 1 mg IM Q15MIN PRN PRN Reason: BG <70, and no IV access Sodium Chloride (Ns) 1,000 mls @ 80 mls/hr IV .[id number] ONE Stop: 01/12/25 13:29 Insulin Human Lispro (Insulin Lispro (Admelog) 1 Unit/0.01 Ml Unit) 0 unit SC [facility]; Protocol Stop: 02/11/25 07:29 Ondansetron HCl (Ondansetron Inj 2 Mg/Ml Inj 2 Ml) 4 mg IVP Q6H PRN; Protocol PRN Reason: NAUSEA OR VOMITING Stop: 02/10/25 22:59 Pantoprazole Sodium (Pantoprazole 40 Mg Tablet) 40 mg PO QDAY [facility] Stop: 02/11/25 08:59 Sennosides (Senna Tablet) 1 tab PO QDAY [facility]; Protocol Stop: 02/11/25 08:59 Discontinued Medications Bisacodyl (Bisacodyl 10 Mg Supp) 10 mg [place] STAT STA; Protocol Stop: 01/12/25 02:05 Carvedilol (Carvedilol 3.125 Mg Tablet) 3.125 mg PO BIDWM [facility] Stop: 02/11/25 08:59 Famotidine (Famotidine Inj 10 Mg/Ml Vial 2 Ml) 20 mg IVP X1 ONE Stop: 01/11/25 17:28 Last Admin: 01/11/25 19:38 Dose: 20 mg Sodium Chloride (Ns) 1,000 mls @ 999 mls/hr IV .Q1H1M ONE Stop: 01/11/25 18:26 Last Infusion: 01/11/25 21:14 Dose: Infused Ondansetron HCl (Ondansetron Inj 2 Mg/Ml Inj 2 Ml) 4 mg IVP X1 ONE; Protocol Stop: 01/11/25 17:26 Last Admin: 01/11/25 19:35 Dose: 4 mg Assessment & Plan Plan Patient is a 59-year-old female with a past medical history of CAD s/p 3 stents most recent one occurring on 01/10/2025 [facility] by Dr. Hernández, hypertension, hyperlipidemia, and diabetes mellitus type 2 [id number],history of breast cancer s/p right mastectomy. Pateint is being admitted for acute liver injury and diffuse abdominal tenderness. #Acute Liver Injury #Transaminitis #Hyperbilirubinemia #Intractable abdominal pain #Constipation Patient presented with diffuse abdominal tenderness throughout all 4 quadrants, speciffically localized to supra-pubic region, soft and pain 5 out of 10. Last bowel movement yesterday. Patient recently had CAD status post PCI with 1 new stent added, thus No MRCP. Dr. Hernández plan to admit patient for observations given recent stent placement. Patient patient is on taking Ozempic 2.5 mg subcu once weekly and per patient history did stop metformin use prior PCI. Contrast-induced cellulitis cannot be ruled out versus medication versus less likely secondary to hepatitis as above negative ultrasound unremarkable. UA given suprapubic tenderness. Diagnostics: Bili 2.1, AST greater than 1000, ALT 638, acetaminophen less than 2. Hepatitis panel negative. Lipase 41 Gallbladder ultrasound (01/11/2025): Gallbladder not visualized common bile duct 0.5, fatty infiltrations throughout liver. CT abdomen/pelvis CT: 16mm left adrenal nodule, recommended elective MRI no hydronephrosis, no abdominal lymphadenopathy, no obstruction, no pericecal inflammatory changes, no diverticulosis or diverticulitis. Plan -Holding off MRCP given Dr. Hernández recs - Trend AST's and ALT's a.m. - Hold atorvastatin - Alcohol and U tox -Miralax and Senna - NS at 80 cc/h #CAD status 3 stents (01/11/2025) #Hyperlipidemia Patient has a past medical history of CAD status PCI, 3 stents. Third stent recently added by Dr. Hernández at [facility] on 01/10/2025. Patient denied chest pain, but compalining of diffuse abdominal pain. EKG No ST elevation noted. SInus. NO AV block appreciated Plan -Carvedilol 25 mg BID -Plavix 75 mg qday -Aspirin 81 mg qday -HOLD Atorvastatin -A1c , Lipid, and TSH AM -Troponin a.m. #Hypertension Patient has a past medical history of hypertension. On medication includes Losartan 100 mg qday and clonidine 0.1 mg daily. Plan -Resumed carvedilol 25 mg twice daily - Hold clonidine 0.1 mg daily Losartan, consider resuming zooming if blood pressure increases -continue to monitor blood pressure #Diabetes mellitus type 2 [id number] Patient has a past medical history of diabetes mellitus type 2. No previous. Home medication includes Ozempic 2.5 mg weekly, metformin 1000 twice daily medication, and glipizide 5 mg. Diagnostics Admission glucose 149 Plan - Sliding scale - A1c -Currently holding home medication - Hypoglycemia protocols Health Maintenance: Disp: Pt is currently admitted to floors for further management of FEN: Famotidine DVT: Compression Device Code: Full Code - The patient's plan was discussed with attending Dr. Harsh Zavala MD PGY1 Internal Medicine Attending Provider Attestation/Addendum 59-year-old female with coronary artery disease, status post stent, breast cancer, hypertension hyperlipidemia, diabetes mellitus presents with abdominal pain and constipation. She was found to have high LFTs with elevated bilirubin level. Patient was presented to the ED nurse practitioner who admitted the patient for observation. Dr. Hernández was contacted by the ED LABOR COMMISSIONER, was contacted prior to admission. The patient denies chest pain. She is constipated. She is asking for a medication to facilitate bowel movement. She denies drug use no alcohol use. She never had hepatitis diagnosed previously. Patient will be admitted for further evaluation and management. I discussed with and supervised the resident physician who took care of this patient. I agree with the assessment and plan as above.
[2025-01-12] MEDS: SODIUM CHLORIDE 0.9% 1000 ML 1,000 ML 80 ML IV ×2 (03:28→22:04)
[2025-01-12 05:41] LABS: Basophils # (Auto) 0.1 Thou/mm3 (0.0-0.2); Basophils % (Auto) 1 % (0-2.5); Eosinophils # (Auto) 0.2 Thou/mm3 (0.0-0.5); Eosinophils % (Auto) 2 % (0-10); Hematocrit 32.4 % (36.0-46.0); Hemoglobin 11.0 g/dL (12.0-16.0); Immature Granulocytes Auto 0.01 Thou/mm3 (0.00-0.00); Lymphocytes # (Auto) 1.5 Thou/mm3 (1.0-4.8); Lymphocytes % (Auto) 19 % (10-50); Mean Corpuscular HGB Conc 34.0 g/dl (31.0-37.0); Mean Corpuscular Hemoglobin 27.5 pg (25.0-35.0); Mean Corpuscular Volume 81 fL (80-100); Monocytes # (Auto) 0.8 Thou/mm3 (0.0-0.8); Monocytes % (Auto) 10 % (0-12); Neutrophils # (Auto) 5.4 Thou/mm3 (1.8-7.7); Neutrophils % (Auto) 68 % (37-80); Nucleated Red Blood Cell # 0.00 Thou/mm3 (0.00-0.00); Nucleated Red Blood Cell % 0 /100 WBC (0); Platelet Count 224 Thou/mm3 (140-440); RDW Standard Deviation 40.0 fL (36.4-46.3); Red Blood Count 4.00 Miln/mm3 (4.00-5.20); White Blood Count 7.9 Thou/mm3 (3.6-11.0)
[2025-01-12 06:03] LABS: Glucose Estimated Average 111 mg/dL (80-131); Hemoglobin A1C 5.5 % Hgb (4.8-6.0)
[2025-01-12 06:27] LABS: Alanine Aminotransferase 800 U/L (10-49); Albumin, Serum 4.2 gm/dL (3.4-4.8); Albumin/Globulin Ratio 1.8 (1.2-2.2); Alkaline Phosphatase 287 U/L (46-116); Anion Gap 8 (7-16); Aspartate Amino Transferase 838 U/L (0-34); BUN/Creatinine Ratio 15 Ratio (12-20); Bilirubin,Total 2.3 mg/dL (0.3-1.2); Blood Urea Nitrogen 12 mg/dL (9-23); Calcium 9.5 mg/dL (8.3-10.6); Calcium (Corrected) 9.5 mg/dL (8.5-10.1); Carbon Dioxide 26.1 mMol/L (20.0-31.0); Cardiac Risk Estimate 2.9 RATIO (3.7-5.6); Chloride 107 mMol/L (98-107); Cholesterol 155 mg/dL (132-200); Creatinine (Component) 0.8 mg/dL (0.6-1.3); Estimated Creatinine Clearance 76.9 mL/min (>60); Globulin 2.4 gm/dL (2.3-3.5); Glucose 99 mg/dL (74-106); HDL Cholesterol 54 mg/dL (40-60); LDL Cholesterol,Calculated 80 mg/dL (0-130); Magnesium 1.8 mg/dL (1.6-2.6); Osmolality,Calculated 280 (275-295); Phosphorous 1.9 mg/dL (2.4-5.1); Potassium 3.6 mMol/L (3.4-5.1); Sodium 141 mMol/L (136-145); Thyroid Stimulating Hormone 1.28 uIU/mL (0.55-4.78); Total Protein 6.6 gm/dL (5.7-8.2); Triglycerides 105 mg/dL (30-150); eGFR > 60 See Note
[2025-01-12 06:29] LABS: Troponin I 0.133 ng/mL (0.0-0.045)
[2025-01-12] MEDS: CLOPIDOGREL BISULFATE 75 MG TABLET PO (11:27)
[2025-01-12] MEDS: PANTOPRAZOLE 40 MG TABLET PO (11:27)
[2025-01-12] MEDS: ASPIRIN EC 81 MG TABEC PO (11:27)
--- NOTE | 2025-01-12 11:37 | PD.IMCONS ---
HPI Data of Consult Requesting Physician: Jacques House MD Primary Care Provider: Yomi Berry MD Consult Narrative History of present illness: This is a 59-year-old female with a past medical history of CAD s/p 3 stents most recent one occurring on 01/10/2025 had COVID third to the right coronary artery, hypertension, hyperlipidemia, and diabetes mellitus type 2 [id number],history of breast cancer s/p right mastectomy. Patient was seen in the emergency room with a complaint of abdominal pain nausea vomiting Patient denies any chest pain neck pain left arm pain EKG does not show any acute ST-T wave changes Patient is continuing on dual antiplatelet agent Patient laboratory examination reveals elevated liver enzymes Minimal elevation of troponin most likely due to recent angioplasty cc:: cc: Jacques House MD Meds Home Medications and Allergies Home Medications ?Medication ?Instructions ?Recorded ?Confirmed ?Type metformin 1,000 mg tablet 1,000 mg PO BID 01/19/18 04/18/24 History aspirin 81 mg tablet,delayed 81 mg PO QDAY 04/18/24 04/18/24 History release Held on 04/20/24. Instructions: Resume on 04/22/24. atorvastatin 80 mg tablet (Lipitor) 80 mg PO QPM 04/18/24 04/18/24 History carvedilol 3.125 mg tablet 3.125 mg PO BID 04/18/24 04/18/24 History clopidogrel 75 mg tablet (Plavix) 75 mg PO QDAY 04/18/24 04/18/24 History Held on 04/20/24. Instructions: Resume on 04/22/24. ferrous sulfate 325 mg (65 mg 325 mg PO QDAY 04/18/24 04/18/24 History iron) tablet gabapentin 300 mg capsule 300 mg PO TID 04/18/24 04/18/24 History sitagliptin phosphate 100 mg 100 mg PO QDAY 04/18/24 04/18/24 History tablet (Januvia) Allergies Allergy/AdvReac Type Severity Reaction Status Date / Time No Known Allergies Allergy Verified 04/18/24 07:36 Exam Vital Signs Temp Pulse Resp BP Pulse Ox O2 Del Method O2 Flow Rate 98.1 F 73 22 H 165/101 H 95 Room Air 4 01/12/25 09:24 01/12/25 09:30 01/12/25 09:30 01/12/25 09:30 01/12/25 09:30 01/12/25 09:24 01/12/25 05:00 Routine HEENT Exam Head: Present normocephalic and atraumatic Eye: Present EOMI and PERRL ENT: Present mucous membranes moist Routine Neck Exam Neck: Present supple and trachea midline Routine Respiratory Exam Respiratory: Present chest non-tender, lungs clear, normal breath sounds and no resp distress Routine Cardiovascular Exam Cardiovascular: Present RRR Routine Abdominal Exam Abdominal: Present soft and normoactive bowel sounds Routine Extremities Exam Extremities: Present full ROM Routine Skin Exam Skin: Present intact, dry and warm Routine Neurological Exam Neurological: Present alert, oriented X3 and CN II-XII intact Routine Psychiatric Exam Psychiatric: Present normal affect and normal thought process Results Labs 01/12/25 05:16 01/12/25 05:16 Labs: Short CBC 01/11/25 01/12/25 Range/Units 17:33 05:16 WBC 10.2 7.9 (3.6-11.0) Thou/mm3 Hgb 12.4 11.0 L (12.0-16.0) g/dL Hct 36.0 32.4 L (36.0-46.0) % Plt Count 223 224 (140-440) Thou/mm3 BMP 01/11/25 01/12/25 17:33 05:16 Sodium 140 141 Potassium 4.1 3.6 D Chloride 105 107 Carbon Dioxide 25.1 26.1 BUN 15 12 Creatinine 0.9 0.8 Glucose 149 H 99 D Calcium 10.0 9.5 Cardiac Enzymes 01/12/25 Range/Units 05:16 Troponin I 0.133 H* (0.0-0.045) ng/mL Liver Function 01/11/25 01/12/25 Range/Units 17:33 05:16 Total Bilirubin 2.1 H 2.3 H (0.3-1.2) mg/dL AST > 1000 H* 838 H* (0-34) U/L ALT 638 H* 800 H* (10-49) U/L Alkaline Phosphatase 270 H 287 H (46-116) U/L Albumin 4.6 4.2 (3.4-4.8) gm/dL Assessment and Plan Assessment and plan (1) Breast mass, right: Status: Acute (2) Diabetes: Status: Acute (3) Coronary artery disease: Status: Acute (4) Coronary angioplasty status: Status: Acute (5) Elevated liver enzymes: Status: Acute (6) Elevated troponin: Status: Acute Additional Assessment & Plan Additional Plan: Continue to treat nausea vomiting, elevated liver enzymes Agree with current treatment plan Patient with minimal elevation of troponin noted, most likely related to the recent angioplasty done Currently denies any chest pain neck pain left arm pain shortness of breath EKG does not show any acute ST-T wave changes Continue current medical management stable hemodynamics
--- NOTE | 2025-01-12 17:02 | PD.IMCONS ---
HPI Data of Consult Requesting Physician: Jacques House MD Primary Care Provider: Yomi Berry MD Consult Narrative Reason for consult: Pain abdomen nausea vomiting abnormal LFTs History of present illness: 59 years old female presented to the hospital with pain abdomen nausea vomiting and abnormal LFTs and subsequently got admitted Initial LFTs showed total bilirubin 2.3 AST ALT at 38 and 800 and alk phos of 257 Pro time INR 1.0 platelet count 224,000 with a hemoglobin hematocrit of 11.0 and 32.4 with a WBC count of 7.9 CT scan of the abdomen pelvis showed left adrenal nodule 16 mm cholecystectomy no other lesions seen Patient has history of coronary artery status post PCI last 1 on 01/10/2025 essential hypertension hyperlipidemia diabetes mellitus type 2 and breast carcinoma status postmastectomy Hepatitis A, B, and C serologies are negative cc:: cc: Jacques House MD Review of Systems Review of Systems Systems Reviewed: All systems reviewed, normal except as documented Past Medical History Surgical History OTHER SURGICAL HX: As in the history of present illness Meds Home Medications and Allergies Home Medications ?Medication ?Instructions ?Recorded ?Confirmed ?Type metformin 1,000 mg tablet 1,000 mg PO BID 01/19/18 04/18/24 History aspirin 81 mg tablet,delayed 81 mg PO QDAY 04/18/24 04/18/24 History release Held on 04/20/24. Instructions: Resume on 04/22/24. atorvastatin 80 mg tablet (Lipitor) 80 mg PO QPM 04/18/24 04/18/24 History carvedilol 3.125 mg tablet 3.125 mg PO BID 04/18/24 04/18/24 History clopidogrel 75 mg tablet (Plavix) 75 mg PO QDAY 04/18/24 04/18/24 History Held on 04/20/24. Instructions: Resume on 04/22/24. ferrous sulfate 325 mg (65 mg 325 mg PO QDAY 04/18/24 04/18/24 History iron) tablet gabapentin 300 mg capsule 300 mg PO TID 04/18/24 04/18/24 History sitagliptin phosphate 100 mg 100 mg PO QDAY 04/18/24 04/18/24 History tablet (Januvia) Allergies Allergy/AdvReac Type Severity Reaction Status Date / Time No Known Allergies Allergy Verified 04/18/24 07:36 Exam Vital Signs Temp Pulse Resp BP Pulse Ox O2 Del Method O2 Flow Rate 97.4 F 73 18 136/88 H 96 Room Air 4 01/12/25 16:00 01/12/25 16:00 01/12/25 16:00 01/12/25 16:00 01/12/25 16:00 01/12/25 16:00 01/12/25 05:00 Constitutional Comments: Alert oriented Routine Respiratory Exam Comments: Normal to auscultation Routine Abdominal Exam Comments: Midepigastric right upper quadrant tenderness Results Labs 01/12/25 05:16 01/12/25 05:16 Labs: Short CBC 01/11/25 01/12/25 Range/Units 17:33 05:16 WBC 10.2 7.9 (3.6-11.0) Thou/mm3 Hgb 12.4 11.0 L (12.0-16.0) g/dL Hct 36.0 32.4 L (36.0-46.0) % Plt Count 223 224 (140-440) Thou/mm3 BMP 01/11/25 01/12/25 17:33 05:16 Sodium 140 141 Potassium 4.1 3.6 D Chloride 105 107 Carbon Dioxide 25.1 26.1 BUN 15 12 Creatinine 0.9 0.8 Glucose 149 H 99 D Calcium 10.0 9.5 Cardiac Enzymes 01/12/25 Range/Units 05:16 Troponin I 0.133 H* (0.0-0.045) ng/mL Liver Function 01/11/25 01/12/25 Range/Units 17:33 05:16 Total Bilirubin 2.1 H 2.3 H (0.3-1.2) mg/dL AST > 1000 H* 838 H* (0-34) U/L ALT 638 H* 800 H* (10-49) U/L Alkaline Phosphatase 270 H 287 H (46-116) U/L Albumin 4.6 4.2 (3.4-4.8) gm/dL Assessment and Plan Additional Assessment & Plan Additional Plan: Pain abdomen epigastric right upper quadrant nausea vomiting Abnormal LFTs primarily transaminitis Plan workup ordered for the chronic active hepatitis MRCP Consent obtained for fiberoptic esophagogastroduodenoscopy with possible biopsy possible therapeutic intervention under intravenous moderate sedation Thank you very much for the opportunity to participate in care of this patient Other medical problems include Coronary artery status post PCI Essential hypertension Hyperlipidemia Diabetes mellitus type 2 Breast carcinoma status post mastectomy 16 mm left adrenal nodule Postcholecystectomy appendectomy
--- NOTE | 2025-01-12 18:40 | ESPR_ITS ---
<Statement entered by Charmaine Gonzalez MD - 01/14/25 17:30> I Charmaine Gonzalez MD reviewed the note and agree with the resident's assessment & plan with exceptions as below. I have personally reviewed labs, imaging, home meds/prior records, examined the patient, formulated and discussed management plan with the IM team. A 59-year-old female presented to ED with abdominal pain, nausea and vomiting noted to have significant transaminitis. Hepatitis panel unremarkable, no obvious source of ischemic or drug-induced hepatic insult. Possible viral hepatitis. Obtain CT abdomen and US hepatobiliary to evaluate for etiology. Will continue supportive care with IV fluids, obtain HIV, STD panel, consult GI for further workup and management recommendations. Hold atorvastatin, continue dual antiplatelet therapy as patient has recent PCI. Additionally patient also going for mastectomy of the left breast (previously had right lumpectomy due to breast cancer) Documentation for date of: 01/12/25 Subjective Subjective Interval history: Patient is seen and examined at bedside Admitted overnight in view of transaminitis, which could be likely due to ischemia during the cardiac catheterization or viral in the setting of vomitings Vitals are stable. Patient tested negative for acute hepatitis panel Consulted postbed stitcher, Dr. Brooke and will appreciate his recommendation Consulted replenishment buyer Dr. Hernández, with appreciate history of recommendations Exam Vital Signs Temp Pulse Resp BP Pulse Ox O2 Del Method O2 Flow Rate 97.4 F 73 18 142/101 H 96 Room Air 4 01/12/25 16:00 01/12/25 17:17 01/12/25 16:00 01/12/25 17:17 01/12/25 16:00 01/12/25 16:00 01/12/25 05:00 Narrative Exam General: Awake. HEENT: Normocephalic, atraumatic, mucous membranes moist. Heart: Regular rate and rhythm, no murmurs. Lungs: Clear to auscultation with no wheezing or crackles. Abdomen: Soft, nondistended, mild tenderness in the upper abdomen, positive bowel sounds. ?No guarding or rebound tenderness. Neurologic: Alert and oriented x3, no gross neurological deficit, and patient able to move all 4 extremities. Extremities: No edema. Skin: No rash or ecchymoses. Objective Labs 01/13/25 04:56 01/13/25 04:56 Labs: Laboratory Results - last 24 hr 01/11/25 01/11/25 01/11/25 17:32 17:33 23:30 WBC RBC Hgb Hct MCV MCH MCHC RDW Std Deviation Plt Count Neut % (Auto) Lymph % (Auto) [place] % (Auto) Eos % (Auto) Baso % (Auto) Neut # (Auto) Lymph # (Auto) [place] # (Auto) Eos # (Auto) Baso # (Auto) Immature Gran # (Auto) Absolute Nucleated RBC Immature Gran % Nucleated RBC % Sodium Potassium Chloride Carbon Dioxide Anion Gap BUN Creatinine Estim Creat Clear Calc eGFR BUN/Creatinine Ratio Glucose Estimated Ave Glu mg/dL Hemoglobin A1c Calculated Osmolality Calcium Corrected Calcium Phosphorus Magnesium Total Bilirubin AST ALT Alkaline Phosphatase Troponin I Total Protein Albumin Globulin Albumin/Globulin Ratio Triglycerides Cholesterol LDL Cholesterol, Calc HDL Cholesterol Cholesterol/HDL Ratio Beta-Hydroxybutyrate/Acetoacetate 0.1 TSH Acetaminophen < 2.0 L Hepatitis A IgM Ab Non Reactive Hep Bs Antigen Non Reactive Hep B Core IgM Ab Non Reactive Hepatitis C Antibody Non Reactive 01/12/25 05:16 WBC 7.9 RBC 4.00 Hgb 11.0 L Hct 32.4 L MCV 81 MCH 27.5 MCHC 34.0 RDW Std Deviation 40.0 Plt Count 224 Neut % (Auto) 68 Lymph % (Auto) 19 [place] % (Auto) 10 Eos % (Auto) 2 Baso % (Auto) 1 Neut # (Auto) 5.4 Lymph # (Auto) 1.5 [place] # (Auto) 0.8 Eos # (Auto) 0.2 Baso # (Auto) 0.1 Immature Gran # (Auto) 0.01 H Absolute Nucleated RBC 0.00 Immature Gran % 0 Nucleated RBC % 0 Sodium 141 Potassium 3.6 D Chloride 107 Carbon Dioxide 26.1 Anion Gap 8 BUN 12 Creatinine 0.8 Estim Creat Clear Calc 76.9 eGFR > 60 BUN/Creatinine Ratio [address] Glu mg/dL 111 Hemoglobin A1c 5.5 Calculated Osmolality 280 Calcium 9.5 Corrected Calcium 9.5 Phosphorus 1.9 L Magnesium 1.8 Total Bilirubin 2.3 H AST 838 H* ALT 800 H* Alkaline Phosphatase 287 H Troponin I 0.133 H* Total Protein 6.6 Albumin 4.2 Globulin 2.4 Albumin/Globulin Ratio 1.8 Triglycerides 105 Cholesterol 155 LDL Cholesterol, Calc 80 HDL Cholesterol 54 Cholesterol/HDL Ratio 2.9 L Beta-Hydroxybutyrate/Acetoacetate TSH 1.28 Acetaminophen Hepatitis A IgM Ab Hep Bs Antigen Hep B Core IgM Ab Hepatitis C Antibody Quality Measures Quality Measures none Assessment & Plan Assessment Current Active Medications: Generic Name Dose Route Start Last Admin Trade Name Billq PRN Reason Stop Dose Admin Aspirin 81 mg 01/12/25 09:00 01/12/25 11:27 Aspirin Ec 81 Mg Tabec PO 02/11/25 08:59 81 mg QDAY VINITA Administration Carvedilol 25 mg 01/12/25 11:30 01/12/25 17:17 Carvedilol 12.5 Mg Tablet PO 02/11/25 11:29 25 mg BIDWM VINITA Administration Clopidogrel Bisulfate 75 mg 01/12/25 09:00 01/12/25 11:27 Clopidogrel Bisulfate 75 Mg Tablet PO 02/11/25 08:59 75 mg QDAY VINITA Administration Dextrose 25 ml 01/11/25 23:05 Dextrose 50%-Water Inj 50 Ml Syringe IV 02/10/25 23:04 Q15MIN PRN BG 50-70 responsive npo pt Dextrose 50 ml 01/11/25 23:05 Dextrose 50%-Water Inj 50 Ml Syringe IV 02/10/25 23:04 Q15MIN PRN BG <50 OR BG <70 & pt unresponsive Glucagon 1 mg 01/11/25 23:05 Glucagon Inj 1 Mg Vial IM Q15MIN PRN BG <70, and no IV access Insulin Human Lispro 0 unit 01/12/25 11:30 01/12/25 17:33 Insulin Lispro (Admelog) 1 Unit/0.01 Ml Unit SC 02/11/25 11:29 Not Given ACHS VINITA Protocol Ondansetron HCl 4 mg 01/11/25 23:00 Ondansetron Inj 2 Mg/Ml Inj 2 Ml IVP 02/10/25 22:59 Q6H PRN NAUSEA OR VOMITING Protocol Pantoprazole Sodium 40 mg 01/12/25 09:00 01/12/25 11:27 Pantoprazole 40 Mg Tablet PO 02/11/25 08:59 40 mg QDAY VINITA Administration Polyethylene Glycol 17 gm 01/12/25 09:00 01/12/25 12:08 Polyethylene Glycol 17 Gm Packet PO 02/11/25 08:59 Not Given QDAY VINITA Sennosides 1 tab 01/12/25 09:00 01/12/25 11:27 Senna Tablet PO 02/11/25 08:59 1 tab QDAY VINITA Administration Protocol Plan Patient is a 59-year-old female with a past medical history of CAD s/p 3 stents most recent one occurring on 01/10/[address] [facility] by Dr. Hernández, hypertension, hyperlipidemia, and diabetes mellitus type 2 [id number],history of breast cancer s/p right mastectomy. Pateint is being admitted for acute liver injury and diffuse abdominal tenderness. #Transaminitis - likely ischemic vs viral #Hyperbilirubinemia #Intractable abdominal pain #Constipation Patient presented with diffuse abdominal tenderness throughout all 4 quadrants, speciffically localized to supra-pubic region, soft and pain 5 out of 10. Patient recently had CAD status post PCI with 1 new stent added, thus No MRCP. Dr. Hernández plan to admit patient for observations given recent stent placement. Patient patient is on taking Ozempic 2.5 mg subcu once weekly and per patient history did stop metformin use prior PCI. Diagnostics: Bili 2.1, AST greater than 1000, ALT 638, acetaminophen less than 2. Hepatitis panel negative. Lipase 41 Gallbladder ultrasound (01/11/2025): Gallbladder not visualized common bile duct 0.5, fatty infiltrations throughout liver. CT abdomen/pelvis CT: 16mm left adrenal nodule, recommended elective MRI no hydronephrosis, no abdominal lymphadenopathy, no obstruction, no pericecal inflammatory changes, no diverticulosis or diverticulitis. Plan - Holding off MRCP given Dr. Hernández recs - Will trend AST and ALT - Hold atorvastatin - Miralax and Senna - NS at 80 cc/h #CAD status 3 stents (01/11/2025) #Hyperlipidemia Patient has a past medical history of CAD status PCI, 3 stents. Third stent recently added by Dr. Hernández at [facility] on 01/10/2025. Patient denied chest pain, but compalining of diffuse abdominal pain. EKG No ST elevation noted. SInus. NO AV block appreciated Plan -Carvedilol 25 mg BID -Plavix 75 mg qday -Aspirin 81 mg qday -HOLD Atorvastatin #Hypertension Patient has a past medical history of hypertension. On medication includes Losartan 100 mg qday and clonidine 0.1 mg daily. Plan -Resumed carvedilol 25 mg twice daily -Hold clonidine 0.1 mg daily Losartan, consider resuming zooming if blood pressure increases -continue to monitor blood pressure #Diabetes mellitus type 2 [id number] Patient has a past medical history of diabetes mellitus type 2. No previous. Home medication includes Ozempic 2.5 mg weekly, metformin 1000 twice daily medication, and glipizide 5 mg. Diagnostics Admission glucose 149 Plan -Sliding scale -Currently holding home medication -Hypoglycemia protocols Health Maintenance: Disp: medtele FEN: Famotidine DVT: Compression Device Code: Full Code Patient plan of care was discussed with the attending physician, Dr. Carlos Adams, PGY1
[2025-01-12 21:39] LABS: Iron 117 mcg/dL (50-170); Percent Iron Saturation 37 % (20-55); Total Iron Binding Capacity 315 mcg/dL (250-425); Unsaturated Iron Binding 198 (225-295)
[2025-01-12 22:43] LABS: Collection Type, Urine Clean Catch
[2025-01-12 22:51] LABS: Bilirubin,Urine Negative (Negative); Blood,Urine Negative (Negative); Clarity,Urine Clear (Clear/Hazy); Color,Urine Lt-Yellow (Lt Yel-Yel); Culture Indicated,Urine Not Indicated; Glucose, Urine Negative (Negative); Ketones,Urine Negative (Negative); Leukocyte Esterase,Urine Positive (Negative); Nitrite,Urine Negative (Negative); PH,Urine 7.5 (5.0-7.0); Protein,Urine Negative (Neg - Trace); RBC,Urine 1 /hpf (0-3); Specific Gravity,Urine 1.016 (1.001-1.035); Squamous Epithelial Cell,Urine 1 /hpf (0-5); Urobilinogen,Urine Negative mg/dL (0.0-1.0); WBC,Urine 8 /hpf (0-5)
[2025-01-12 23:27] LABS: Amphetamine/Methamp Scrn,U Negative (Negative); Barbiturate Screen,Urine Negative (Negative); Benzodiazepines Screen,Urine Positive (Negative); Benzoylecgonine Screen, Ur Negative (Negative); Fentanyl Screen,Urine Negative (Negative); Opiate Screen,Urine Negative (Negative); THC Screen,Urine Positive (Negative)
[2025-01-12 23:31] LABS: Bilirubin,Urine Negative (Negative); Clarity,Urine Clear (Clear/Hazy); Color,Urine Lt-Yellow (Lt Yel-Yel); Glucose, Urine Negative (Negative); Ketones,Urine Negative (Negative)
[2025-01-12 23:32] LABS: Blood,Urine Negative (Negative); Leukocyte Esterase,Urine Positive (Negative); Nitrite,Urine Negative (Negative); PH,Urine 8.0 (5.0-7.0); Protein,Urine Negative (Neg - Trace); Specific Gravity,Urine 1.016 (1.001-1.035); Urobilinogen,Urine Negative mg/dL (0.0-1.0)
[2025-01-12 23:33] LABS: RBC,Urine 2 /hpf (0-3); Squamous Epithelial Cell,Urine 5 /hpf (0-5); WBC,Urine 14 /hpf (0-5)
[2025-01-12 23:34] LABS: Alcohol, Urine Negative (Negative)
[2025-01-13] VITALS (16 sets, daily range): BP systolic 110–218; BP diastolic 73–109; PULSE 60–90; RESP 16–96; TEMP 36–37.1; O2SAT 95–99
[2025-01-13 05:56] LABS: Basophils # (Auto) 0.1 Thou/mm3 (0.0-0.2); Basophils % (Auto) 1 % (0-2.5); Eosinophils # (Auto) 0.4 Thou/mm3 (0.0-0.5); Eosinophils % (Auto) 5 % (0-10); Hematocrit 34.5 % (36.0-46.0); Hemoglobin 11.4 g/dL (12.0-16.0); Immature Granulocytes Auto 0.02 Thou/mm3 (0.00-0.00); Lymphocytes # (Auto) 1.8 Thou/mm3 (1.0-4.8); Lymphocytes % (Auto) 24 % (10-50); Mean Corpuscular HGB Conc 33.0 g/dl (31.0-37.0); Mean Corpuscular Hemoglobin 27.7 pg (25.0-35.0); Mean Corpuscular Volume 84 fL (80-100); Monocytes # (Auto) 0.6 Thou/mm3 (0.0-0.8); Monocytes % (Auto) 8 % (0-12); Neutrophils # (Auto) 4.8 Thou/mm3 (1.8-7.7); Neutrophils % (Auto) 62 % (37-80); Nucleated Red Blood Cell # 0.00 Thou/mm3 (0.00-0.00); Nucleated Red Blood Cell % 0 /100 WBC (0); Platelet Count 219 Thou/mm3 (140-440); RDW Standard Deviation 42.0 fL (36.4-46.3); Red Blood Count 4.12 Miln/mm3 (4.00-5.20); White Blood Count 7.7 Thou/mm3 (3.6-11.0)
[2025-01-13 07:00] LABS: Alanine Aminotransferase 536 U/L (10-49); Albumin, Serum 4.2 gm/dL (3.4-4.8); Albumin/Globulin Ratio 1.8 (1.2-2.2); Alkaline Phosphatase 273 U/L (46-116); Anion Gap 9 (7-16); Aspartate Amino Transferase 265 U/L (0-34); BUN/Creatinine Ratio 15 Ratio (12-20); Bilirubin,Total 0.9 mg/dL (0.3-1.2); Blood Urea Nitrogen 12 mg/dL (9-23); Calcium 9.3 mg/dL (8.3-10.6); Calcium (Corrected) 9.3 mg/dL (8.5-10.1); Carbon Dioxide 23.4 mMol/L (20.0-31.0); Chloride 109 mMol/L (98-107); Creatinine (Component) 0.8 mg/dL (0.6-1.3); Estimated Creatinine Clearance 76.9 mL/min (>60); Globulin 2.4 gm/dL (2.3-3.5); Glucose 105 mg/dL (74-106); Magnesium 1.8 mg/dL (1.6-2.6); Osmolality,Calculated 280 (275-295); Phosphorous 2.7 mg/dL (2.4-5.1); Potassium 4.0 mMol/L (3.4-5.1); Sodium 141 mMol/L (136-145); Total Protein 6.6 gm/dL (5.7-8.2); eGFR > 60 See Note
[2025-01-13] MEDS: CLOPIDOGREL BISULFATE 75 MG TABLET PO (08:08)
[2025-01-13] MEDS: ASPIRIN EC 81 MG TABEC PO (08:08)
[2025-01-13] MEDS: PANTOPRAZOLE 40 MG TABLET PO (08:09)
[2025-01-13] MEDS: ONDANSETRON INJ 2 MG/ML INJ 2 ML 4 MG IVP ×2 (09:54→15:35)
--- NOTE | 2025-01-13 11:07 | PC.SS ---
Patient is alert/oriented. Patient was able to verify demographics. Patient was admitted for abdominal pain. Patient states she resides with her children. Patient states family provides transportation for her. Patient uses a walker as needed. Patient follows with Dr. Hernández- Cardiology, and Dr. Jefferson- CTC for follow up up appt.'s, and PCP: Dr. Berry at [facility]. Last appt. was last week. Alt medical decision maker: Jayleen Love, . Discharge plan is to return home. Pharmacy: [facility]. alt medical decision maker: Jayleen Love, plan: d/c home transportation: family
--- NOTE | 2025-01-13 13:27 | PD.IMPROG ---
Documentation for date of: 01/13/25 Subjective Subjective Interval history: pt had a PCI-RCA last week c/o of abdominal pain being evaluated for ERCP MRCP conraindicated for 3-4 weeks Exam Vital Signs Temp Pulse Resp BP Pulse Ox O2 Del Method O2 Flow Rate 98.2 F 78 17 110/84 98 Room Air 4 01/13/25 12:00 01/13/25 12:00 01/13/25 12:00 01/13/25 12:00 01/13/25 12:00 01/13/25 07:57 01/12/25 05:00 Routine HEENT Exam Head: Present normocephalic and atraumatic Eye: Present EOMI and PERRL ENT: Present mucous membranes moist Routine Neck Exam Neck: Present supple and trachea midline Routine Respiratory Exam Respiratory: Present chest non-tender, lungs clear, normal breath sounds and no resp distress Routine Cardiovascular Exam Cardiovascular: Present RRR Routine Abdominal Exam Abdominal: Present soft and normoactive bowel sounds Routine Extremities Exam Extremities: Present full ROM Routine Skin Exam Skin: Present intact, dry and warm Routine Neurological Exam Neurological: Present alert, oriented X3 and CN II-XII intact Routine Psychiatric Exam Psychiatric: Present normal affect and normal thought process Objective Labs 01/13/25 04:56 01/13/25 04:56 Labs: Laboratory Results - last 24 hr 01/12/25 01/12/25 01/12/25 18:46 22:20 22:20 WBC RBC Hgb Hct MCV MCH MCHC RDW Std Deviation Plt Count Neut % (Auto) Lymph % (Auto) [place] % (Auto) Eos % (Auto) Baso % (Auto) Neut # (Auto) Lymph # (Auto) [place] # (Auto) Eos # (Auto) Baso # (Auto) Immature Gran # (Auto) Absolute Nucleated RBC Immature Gran % Nucleated RBC % Sodium Potassium Chloride Carbon Dioxide Anion Gap BUN Creatinine Estim Creat Clear Calc eGFR BUN/Creatinine Ratio Glucose Calculated Osmolality Calcium Corrected Calcium Phosphorus Magnesium Iron 117 TIBC 315 Iron Saturation 37 Unsat Iron Binding 198 L Total Bilirubin AST ALT Alkaline Phosphatase Total Protein Albumin Globulin Albumin/Globulin Ratio Ur Collection Type Clean Catch Clean Catch Urine Color Lt-Yellow Urine Clarity Urine pH Ur Specific [place] Urine Protein Urine Glucose (UA) Urine Ketones Urine Blood Urine Nitrite Urine Bilirubin Urine Urobilinogen (Auto) Ur Leukocyte Esterase Urine RBC Urine WBC Ur Squamous Epith Cells Urine Bacteria Ur Culture Indicated? Urine Opiates Screen Urine Fentanyl Screen Ur Barbiturates Screen U Amphetamin/Meth Scrn U Benzodiazepines Scrn U Cocaine Metab Screen U Marijuana (THC) Screen Urine Alcohol 01/12/25 01/12/25 01/12/25 22:20 22:20 22:20 WBC RBC Hgb Hct MCV MCH MCHC RDW Std Deviation Plt Count Neut % (Auto) Lymph % (Auto) [place] % (Auto) Eos % (Auto) Baso % (Auto) Neut # (Auto) Lymph # (Auto) [place] # (Auto) Eos # (Auto) Baso # (Auto) Immature Gran # (Auto) Absolute Nucleated RBC Immature Gran % Nucleated RBC % Sodium Potassium Chloride Carbon Dioxide Anion Gap BUN Creatinine Estim Creat Clear Calc eGFR BUN/Creatinine Ratio Glucose Calculated Osmolality Calcium Corrected Calcium Phosphorus Magnesium Iron TIBC Iron Saturation Unsat Iron Binding Total Bilirubin AST ALT Alkaline Phosphatase Total Protein Albumin Globulin Albumin/Globulin Ratio Ur Collection Type Urine Color Lt-Yellow Urine Clarity Clear Clear Urine pH 7.5 H 8.0 H Ur Specific [place] 1.016 Urine Protein Urine Glucose (UA) Urine Ketones Urine Blood Urine Nitrite Urine Bilirubin Urine Urobilinogen (Auto) Ur Leukocyte Esterase Urine RBC Urine WBC Ur Squamous Epith Cells Urine Bacteria Ur Culture Indicated? Urine Opiates Screen Urine Fentanyl Screen Ur Barbiturates Screen U Amphetamin/Meth Scrn U Benzodiazepines Scrn U Cocaine Metab Screen U Marijuana (THC) Screen Urine Alcohol 01/12/25 01/12/25 01/12/25 22:20 22:20 22:20 WBC RBC Hgb Hct MCV MCH MCHC RDW Std Deviation Plt Count Neut % (Auto) Lymph % (Auto) [place] % (Auto) Eos % (Auto) Baso % (Auto) Neut # (Auto) Lymph # (Auto) [place] # (Auto) Eos # (Auto) Baso # (Auto) Immature Gran # (Auto) Absolute Nucleated RBC Immature Gran % Nucleated RBC % Sodium Potassium Chloride Carbon Dioxide Anion Gap BUN Creatinine Estim Creat Clear Calc eGFR BUN/Creatinine Ratio Glucose Calculated Osmolality Calcium Corrected Calcium Phosphorus Magnesium Iron TIBC Iron Saturation Unsat Iron Binding Total Bilirubin AST ALT Alkaline Phosphatase Total Protein Albumin Globulin Albumin/Globulin Ratio Ur Collection Type Urine Color Urine Clarity Urine pH Ur Specific [place] 1.016 Urine Protein Negative Negative Urine Glucose (UA) Negative Negative Urine Ketones Negative Urine Blood Urine Nitrite Urine Bilirubin Urine Urobilinogen (Auto) Ur Leukocyte Esterase Urine RBC Urine WBC Ur Squamous Epith Cells Urine Bacteria Ur Culture Indicated? Urine Opiates Screen Urine Fentanyl Screen Ur Barbiturates Screen U Amphetamin/Meth Scrn U Benzodiazepines Scrn U Cocaine Metab Screen U Marijuana (THC) Screen Urine Alcohol 01/12/25 01/12/25 01/12/25 22:20 22:20 22:20 WBC RBC Hgb Hct MCV MCH MCHC RDW Std Deviation Plt Count Neut % (Auto) Lymph % (Auto) [place] % (Auto) Eos % (Auto) Baso % (Auto) Neut # (Auto) Lymph # (Auto) [place] # (Auto) Eos # (Auto) Baso # (Auto) Immature Gran # (Auto) Absolute Nucleated RBC Immature Gran % Nucleated RBC % Sodium Potassium Chloride Carbon Dioxide Anion Gap BUN Creatinine Estim Creat Clear Calc eGFR BUN/Creatinine Ratio Glucose Calculated Osmolality Calcium Corrected Calcium Phosphorus Magnesium Iron TIBC Iron Saturation Unsat Iron Binding Total Bilirubin AST ALT Alkaline Phosphatase Total Protein Albumin Globulin Albumin/Globulin Ratio Ur Collection Type Urine Color Urine Clarity Urine pH Ur Specific [place] Urine Protein Urine Glucose (UA) Urine Ketones Negative Urine Blood Negative Negative Urine Nitrite Negative Negative Urine Bilirubin Negative Urine Urobilinogen (Auto) Ur Leukocyte Esterase Urine RBC Urine WBC Ur Squamous Epith Cells Urine Bacteria Ur Culture Indicated? Urine Opiates Screen Urine Fentanyl Screen Ur Barbiturates Screen U Amphetamin/Meth Scrn U Benzodiazepines Scrn U Cocaine Metab Screen U Marijuana (THC) Screen Urine Alcohol 01/12/25 01/12/25 01/12/25 22:20 22:20 22:20 WBC RBC Hgb Hct MCV MCH MCHC RDW Std Deviation Plt Count Neut % (Auto) Lymph % (Auto) [place] % (Auto) Eos % (Auto) Baso % (Auto) Neut # (Auto) Lymph # (Auto) [place] # (Auto) Eos # (Auto) Baso # (Auto) Immature Gran # (Auto) Absolute Nucleated RBC Immature Gran % Nucleated RBC % Sodium Potassium Chloride Carbon Dioxide Anion Gap BUN Creatinine Estim Creat Clear Calc eGFR BUN/Creatinine Ratio Glucose Calculated Osmolality Calcium Corrected Calcium Phosphorus Magnesium Iron TIBC Iron Saturation Unsat Iron Binding Total Bilirubin AST ALT Alkaline Phosphatase Total Protein Albumin Globulin Albumin/Globulin Ratio Ur Collection Type Urine Color Urine Clarity Urine pH Ur Specific [place] Urine Protein Urine Glucose (UA) Urine Ketones Urine Blood Urine Nitrite Urine Bilirubin Negative Urine Urobilinogen (Auto) Negative Negative Ur Leukocyte Esterase Positive Positive Urine RBC 1 Urine WBC Ur Squamous Epith Cells Urine Bacteria Ur Culture Indicated? Urine Opiates Screen Urine Fentanyl Screen Ur Barbiturates Screen U Amphetamin/Meth Scrn U Benzodiazepines Scrn U Cocaine Metab Screen U Marijuana (THC) Screen Urine Alcohol 01/12/25 01/12/25 01/12/25 22:20 22:20 22:20 WBC RBC Hgb Hct MCV MCH MCHC RDW Std Deviation Plt Count Neut % (Auto) Lymph % (Auto) [place] % (Auto) Eos % (Auto) Baso % (Auto) Neut # (Auto) Lymph # (Auto) [place] # (Auto) Eos # (Auto) Baso # (Auto) Immature Gran # (Auto) Absolute Nucleated RBC Immature Gran % Nucleated RBC % Sodium Potassium Chloride Carbon Dioxide Anion Gap BUN Creatinine Estim Creat Clear Calc eGFR BUN/Creatinine Ratio Glucose Calculated Osmolality Calcium Corrected Calcium Phosphorus Magnesium Iron TIBC Iron Saturation Unsat Iron Binding Total Bilirubin AST ALT Alkaline Phosphatase Total Protein Albumin Globulin Albumin/Globulin Ratio Ur Collection Type Urine Color Urine Clarity Urine pH Ur Specific [place] Urine Protein Urine Glucose (UA) Urine Ketones Urine Blood Urine Nitrite Urine Bilirubin Urine Urobilinogen (Auto) Ur Leukocyte Esterase Urine RBC 2 Urine WBC 8 H 14 H Ur Squamous Epith Cells 1 5 Urine Bacteria None Ur Culture Indicated? Urine Opiates Screen Urine Fentanyl Screen Ur Barbiturates Screen U Amphetamin/Meth Scrn U Benzodiazepines Scrn U Cocaine Metab Screen U Marijuana (THC) Screen Urine Alcohol 01/12/25 01/13/25 22:20 04:56 WBC 7.7 RBC 4.12 Hgb 11.4 L Hct 34.5 L MCV 84 MCH 27.7 MCHC 33.0 RDW Std Deviation 42.0 Plt Count 219 Neut % (Auto) 62 Lymph % (Auto) 24 [place] % (Auto) 8 Eos % (Auto) 5 Baso % (Auto) 1 Neut # (Auto) 4.8 Lymph # (Auto) 1.8 [place] # (Auto) 0.6 Eos # (Auto) 0.4 Baso # (Auto) 0.1 Immature Gran # (Auto) 0.02 H Absolute Nucleated RBC 0.00 Immature Gran % 0 Nucleated RBC % 0 Sodium 141 Potassium 4.0 Chloride 109 H Carbon Dioxide 23.4 Anion Gap 9 BUN 12 Creatinine 0.8 Estim Creat Clear Calc 76.9 eGFR > 60 BUN/Creatinine Ratio 15 Glucose 105 Calculated Osmolality 280 Calcium 9.3 Corrected Calcium 9.3 Phosphorus 2.7 Magnesium 1.8 Iron TIBC Iron Saturation Unsat Iron Binding Total Bilirubin 0.9 D AST 265 H ALT 536 H* Alkaline Phosphatase 273 H Total Protein 6.6 Albumin 4.2 Globulin 2.4 Albumin/Globulin Ratio 1.8 Ur Collection Type Urine Color Urine Clarity Urine pH Ur Specific [place] Urine Protein Urine Glucose (UA) Urine Ketones Urine Blood Urine Nitrite Urine Bilirubin Urine Urobilinogen (Auto) Ur Leukocyte Esterase Urine RBC Urine WBC Ur Squamous Epith Cells Urine Bacteria None Ur Culture Indicated? Not Indicated Urine Opiates Screen Negative Urine Fentanyl Screen Negative Ur Barbiturates Screen Negative U Amphetamin/Meth Scrn Negative U Benzodiazepines Scrn Positive A U Cocaine Metab Screen Negative U Marijuana (THC) Screen Positive A Urine Alcohol Negative Assessment & Plan A&P Narrative agree with current treatment plan Time Spent With Patient Time: Total time spent is greater than 50% in coordination of care (as documented) at patient's floor/unit and/or counseling patient:
--- NOTE | 2025-01-13 15:19 | SUR.PHASEI ---
Pt. arrived to recovery via gurney, eyes closed, responds to verbal commands, VSS, no c/o pain or nausea at this time, report received from aMrissa ADKINS.
--- NOTE | 2025-01-13 15:50 | SUR.PHASEI ---
Pt. transferred to room 374 via GAMALIEL keller, no c/o pain or nausea at this time, offered pt. ice chips, pt. refused, IV flushed, patent and locked, Emma ADKINS assumed care of pt.
--- NOTE | 2025-01-13 16:06 | PC.NURSE ---
Patient returned from endo at this time. Patient denies pain, nausea, or vomiting. Vital signs WNL, see flow sheet.
--- NOTE | 2025-01-13 16:45 | ESPR_ITS ---
<Statement entered by Charmaine Gonzalez MD - 01/14/25 17:31> I Charmaine Gonzalez MD reviewed the note and agree with the resident's assessment & plan with exceptions as below. I have personally reviewed labs, imaging, home meds/prior records, examined the patient, formulated and discussed management plan with the IM team. A 59-year-old female presented to ED with abdominal pain, nausea and vomiting noted to have significant transaminitis. Hepatitis panel unremarkable, no obvious source of ischemic or drug-induced hepatic insult. Possible viral hepatitis. Overnight significant improvement in LFTs, hepatobiliary ultrasound and CT abdomen is unremarkable, plan for EGD and MRCP by GI as patient has relatively chronic history of heartburn and abdominal pain. Will continue supportive care with IV fluids, Hold atorvastatin, continue dual antiplatelet therapy as patient has recent PCI. Additionally patient also going for mastectomy of the left breast (previously had right lumpectomy due to breast cancer) Documentation for date of: 01/13/25 Subjective Subjective Interval history: Patient is seen and examined at bedside No acute overnight events. Patient is kept on n.p.o. by Dr. Brooke in view of anticipated endoscopy later in the day Patient is still complaining of heartburn and headache, but denied medications On physical examination, still having mild abdominal tenderness noted Patient reported that he is vaping marijuana for better appetite. Patient was explained on the effects of marijuana, including vomitings and side effects of vape Exam Vital Signs Temp Pulse Resp BP Pulse Ox O2 Del Method O2 Flow Rate 98.8 F 65 20 120/78 98 Room Air 2 01/13/25 16:00 01/13/25 16:00 01/13/25 16:00 01/13/25 16:00 01/13/25 16:00 01/13/25 07:57 01/13/25 15:50 Narrative Exam General: Awake. HEENT: Normocephalic, atraumatic, mucous membranes moist. Heart: Regular rate and rhythm, no murmurs. Lungs: Clear to auscultation with no wheezing or crackles. Abdomen: Soft, nondistended, mild tenderness in the upper abdomen, positive bowel sounds. ?No guarding or rebound tenderness. Neurologic: Alert and oriented x3, no gross neurological deficit, and patient able to move all 4 extremities. Extremities: No edema. Skin: No rash or ecchymoses. Objective Labs 01/13/25 04:56 01/13/25 04:56 Labs: Laboratory Results - last 24 hr 01/12/25 01/12/25 01/12/25 18:46 22:20 22:20 WBC RBC Hgb Hct MCV MCH MCHC RDW Std Deviation Plt Count Neut % (Auto) Lymph % (Auto) Branch % (Auto) Eos % (Auto) Baso % (Auto) Neut # (Auto) Lymph # (Auto) Branch # (Auto) Eos # (Auto) Baso # (Auto) Immature Gran # (Auto) Absolute Nucleated RBC Immature Gran % Nucleated RBC % Sodium Potassium Chloride Carbon Dioxide Anion Gap BUN Creatinine Estim Creat Clear Calc eGFR BUN/Creatinine Ratio Glucose Calculated Osmolality Calcium Corrected Calcium Phosphorus Magnesium Iron 117 TIBC 315 Iron Saturation 37 Unsat Iron Binding 198 L Total Bilirubin AST ALT Alkaline Phosphatase Total Protein Albumin Globulin Albumin/Globulin Ratio Ur Collection Type Clean Catch Clean Catch Urine Color Lt-Yellow Urine Clarity Urine pH Ur Specific [place] Urine Protein Urine Glucose (UA) Urine Ketones Urine Blood Urine Nitrite Urine Bilirubin Urine Urobilinogen (Auto) Ur Leukocyte Esterase Urine RBC Urine WBC Ur Squamous Epith Cells Urine Bacteria Ur Culture Indicated? Urine Opiates Screen Urine Fentanyl Screen Ur Barbiturates Screen U Amphetamin/Meth Scrn U Benzodiazepines Scrn U Cocaine Metab Screen U Marijuana (THC) Screen Urine Alcohol 01/12/25 01/12/25 01/12/25 22:20 22:20 22:20 WBC RBC Hgb Hct MCV MCH MCHC RDW Std Deviation Plt Count Neut % (Auto) Lymph % (Auto) Branch % (Auto) Eos % (Auto) Baso % (Auto) Neut # (Auto) Lymph # (Auto) [place] # (Auto) Eos # (Auto) Baso # (Auto) Immature Gran # (Auto) Absolute Nucleated RBC Immature Gran % Nucleated RBC % Sodium Potassium Chloride Carbon Dioxide Anion Gap BUN Creatinine Estim Creat Clear Calc eGFR BUN/Creatinine Ratio Glucose Calculated Osmolality Calcium Corrected Calcium Phosphorus Magnesium Iron TIBC Iron Saturation Unsat Iron Binding Total Bilirubin AST ALT Alkaline Phosphatase Total Protein Albumin Globulin Albumin/Globulin Ratio Ur Collection Type Urine Color Lt-Yellow Urine Clarity Clear Clear Urine pH 7.5 H 8.0 H Ur Specific [place] 1.016 Urine Protein Urine Glucose (UA) Urine Ketones Urine Blood Urine Nitrite Urine Bilirubin Urine Urobilinogen (Auto) Ur Leukocyte Esterase Urine RBC Urine WBC Ur Squamous Epith Cells Urine Bacteria Ur Culture Indicated? Urine Opiates Screen Urine Fentanyl Screen Ur Barbiturates Screen U Amphetamin/Meth Scrn U Benzodiazepines Scrn U Cocaine Metab Screen U Marijuana (THC) Screen Urine Alcohol 01/12/25 01/12/25 01/12/25 22:20 22:20 22:20 WBC RBC Hgb Hct MCV MCH MCHC RDW Std Deviation Plt Count Neut % (Auto) Lymph % (Auto) Branch % (Auto) Eos % (Auto) Baso % (Auto) Neut # (Auto) Lymph # (Auto) Branch # (Auto) Eos # (Auto) Baso # (Auto) Immature Gran # (Auto) Absolute Nucleated RBC Immature Gran % Nucleated RBC % Sodium Potassium Chloride Carbon Dioxide Anion Gap BUN Creatinine Estim Creat Clear Calc eGFR BUN/Creatinine Ratio Glucose Calculated Osmolality Calcium Corrected Calcium Phosphorus Magnesium Iron TIBC Iron Saturation Unsat Iron Binding Total Bilirubin AST ALT Alkaline Phosphatase Total Protein Albumin Globulin Albumin/Globulin Ratio Ur Collection Type Urine Color Urine Clarity Urine pH Ur Specific [place] 1.016 Urine Protein Negative Negative Urine Glucose (UA) Negative Negative Urine Ketones Negative Urine Blood Urine Nitrite Urine Bilirubin Urine Urobilinogen (Auto) Ur Leukocyte Esterase Urine RBC Urine WBC Ur Squamous Epith Cells Urine Bacteria Ur Culture Indicated? Urine Opiates Screen Urine Fentanyl Screen Ur Barbiturates Screen U Amphetamin/Meth Scrn U Benzodiazepines Scrn U Cocaine Metab Screen U Marijuana (THC) Screen Urine Alcohol 01/12/25 01/12/25 01/12/25 22:20 22:20 22:20 WBC RBC Hgb Hct MCV MCH MCHC RDW Std Deviation Plt Count Neut % (Auto) Lymph % (Auto) Branch % (Auto) Eos % (Auto) Baso % (Auto) Neut # (Auto) Lymph # (Auto) Branch # (Auto) Eos # (Auto) Baso # (Auto) Immature Gran # (Auto) Absolute Nucleated RBC Immature Gran % Nucleated RBC % Sodium Potassium Chloride Carbon Dioxide Anion Gap BUN Creatinine Estim Creat Clear Calc eGFR BUN/Creatinine Ratio Glucose Calculated Osmolality Calcium Corrected Calcium Phosphorus Magnesium Iron TIBC Iron Saturation Unsat Iron Binding Total Bilirubin AST ALT Alkaline Phosphatase Total Protein Albumin Globulin Albumin/Globulin Ratio Ur Collection Type Urine Color Urine Clarity Urine pH Ur Specific [place] Urine Protein Urine Glucose (UA) Urine Ketones Negative Urine Blood Negative Negative Urine Nitrite Negative Negative Urine Bilirubin Negative Urine Urobilinogen (Auto) Ur Leukocyte Esterase Urine RBC Urine WBC Ur Squamous Epith Cells Urine Bacteria Ur Culture Indicated? Urine Opiates Screen Urine Fentanyl Screen Ur Barbiturates Screen U Amphetamin/Meth Scrn U Benzodiazepines Scrn U Cocaine Metab Screen U Marijuana (THC) Screen Urine Alcohol 01/12/25 01/12/25 01/12/25 22:20 22:20 22:20 WBC RBC Hgb Hct MCV MCH MCHC RDW Std Deviation Plt Count Neut % (Auto) Lymph % (Auto) Branch % (Auto) Eos % (Auto) Baso % (Auto) Neut # (Auto) Lymph # (Auto) Branch # (Auto) Eos # (Auto) Baso # (Auto) Immature Gran # (Auto) Absolute Nucleated RBC Immature Gran % Nucleated RBC % Sodium Potassium Chloride Carbon Dioxide Anion Gap BUN Creatinine Estim Creat Clear Calc eGFR BUN/Creatinine Ratio Glucose Calculated Osmolality Calcium Corrected Calcium Phosphorus Magnesium Iron TIBC Iron Saturation Unsat Iron Binding Total Bilirubin AST ALT Alkaline Phosphatase Total Protein Albumin Globulin Albumin/Globulin Ratio Ur Collection Type Urine Color Urine Clarity Urine pH Ur Specific [place] Urine Protein Urine Glucose (UA) Urine Ketones Urine Blood Urine Nitrite Urine Bilirubin Negative Urine Urobilinogen (Auto) Negative Negative Ur Leukocyte Esterase Positive Positive Urine RBC 1 Urine WBC Ur Squamous Epith Cells Urine Bacteria Ur Culture Indicated? Urine Opiates Screen Urine Fentanyl Screen Ur Barbiturates Screen U Amphetamin/Meth Scrn U Benzodiazepines Scrn U Cocaine Metab Screen U Marijuana (THC) Screen Urine Alcohol 01/12/25 01/12/25 01/12/25 22:20 22:20 22:20 WBC RBC Hgb Hct MCV MCH MCHC RDW Std Deviation Plt Count Neut % (Auto) Lymph % (Auto) Branch % (Auto) Eos % (Auto) Baso % (Auto) Neut # (Auto) Lymph # (Auto) Branch # (Auto) Eos # (Auto) Baso # (Auto) Immature Gran # (Auto) Absolute Nucleated RBC Immature Gran % Nucleated RBC % Sodium Potassium Chloride Carbon Dioxide Anion Gap BUN Creatinine Estim Creat Clear Calc eGFR BUN/Creatinine Ratio Glucose Calculated Osmolality Calcium Corrected Calcium Phosphorus Magnesium Iron TIBC Iron Saturation Unsat Iron Binding Total Bilirubin AST ALT Alkaline Phosphatase Total Protein Albumin Globulin Albumin/Globulin Ratio Ur Collection Type Urine Color Urine Clarity Urine pH Ur Specific [place] Urine Protein Urine Glucose (UA) Urine Ketones Urine Blood Urine Nitrite Urine Bilirubin Urine Urobilinogen (Auto) Ur Leukocyte Esterase Urine RBC 2 Urine WBC 8 H 14 H Ur Squamous Epith Cells 1 5 Urine Bacteria None Ur Culture Indicated? Urine Opiates Screen Urine Fentanyl Screen Ur Barbiturates Screen U Amphetamin/Meth Scrn U Benzodiazepines Scrn U Cocaine Metab Screen U Marijuana (THC) Screen Urine Alcohol 01/12/25 01/13/25 22:20 04:56 WBC 7.7 RBC 4.12 Hgb 11.4 L Hct 34.5 L MCV 84 MCH 27.7 MCHC 33.0 RDW Std Deviation 42.0 Plt Count 219 Neut % (Auto) 62 Lymph % (Auto) 24 Branch % (Auto) 8 Eos % (Auto) 5 Baso % (Auto) 1 Neut # (Auto) 4.8 Lymph # (Auto) 1.8 Branch # (Auto) 0.6 Eos # (Auto) 0.4 Baso # (Auto) 0.1 Immature Gran # (Auto) 0.02 H Absolute Nucleated RBC 0.00 Immature Gran % 0 Nucleated RBC % 0 Sodium 141 Potassium 4.0 Chloride 109 H Carbon Dioxide 23.4 Anion Gap 9 BUN 12 Creatinine 0.8 Estim Creat Clear Calc 76.9 eGFR > 60 BUN/Creatinine Ratio 15 Glucose 105 Calculated Osmolality 280 Calcium 9.3 Corrected Calcium 9.3 Phosphorus 2.7 Magnesium 1.8 Iron TIBC Iron Saturation Unsat Iron Binding Total Bilirubin 0.9 D AST 265 H ALT 536 H* Alkaline Phosphatase 273 H Total Protein 6.6 Albumin 4.2 Globulin 2.4 Albumin/Globulin Ratio 1.8 Ur Collection Type Urine Color Urine Clarity Urine pH Ur Specific [place] Urine Protein Urine Glucose (UA) Urine Ketones Urine Blood Urine Nitrite Urine Bilirubin Urine Urobilinogen (Auto) Ur Leukocyte Esterase Urine RBC Urine WBC Ur Squamous Epith Cells Urine Bacteria None Ur Culture Indicated? Not Indicated Urine Opiates Screen Negative Urine Fentanyl Screen Negative Ur Barbiturates Screen Negative U Amphetamin/Meth Scrn Negative U Benzodiazepines Scrn Positive A U Cocaine Metab Screen Negative U Marijuana (THC) Screen Positive A Urine Alcohol Negative Quality Measures Quality Measures none Assessment & Plan Assessment Current Active Medications: Generic Name Dose Route Start Last Admin Trade Name Freq PRN Reason Stop Dose Admin Acetaminophen 650 mg 01/13/25 11:32 Acetaminophen 325 Mg Tablet PO 02/12/25 11:31 Q6HR PRN PAIN Aspirin 81 mg 01/12/25 09:00 01/13/25 08:08 Aspirin Ec 81 Mg Tabec PO 02/11/25 08:59 81 mg QDAY VINITA Administration Carvedilol 25 mg 01/12/25 11:30 01/13/25 08:09 Carvedilol 12.5 Mg Tablet PO 02/11/25 11:29 25 mg BIDWM VINITA Administration Clopidogrel Bisulfate 75 mg 01/12/25 09:00 01/13/25 08:08 Clopidogrel Bisulfate 75 Mg Tablet PO 02/11/25 08:59 75 mg QDAY VINITA Administration Dextrose 25 ml 01/11/25 23:05 Dextrose 50%-Water Inj 50 Ml Syringe IV 02/10/25 23:04 Q15MIN PRN BG 50-70 responsive npo pt Dextrose 50 ml 01/11/25 23:05 Dextrose 50%-Water Inj 50 Ml Syringe IV 02/10/25 23:04 Q15MIN PRN BG <50 OR BG <70 & pt unresponsive Glucagon 1 mg 01/11/25 23:05 Glucagon Inj 1 Mg Vial IM Q15MIN PRN BG <70, and no IV access Insulin Human Lispro 0 unit 01/12/25 11:30 01/13/25 16:20 Insulin Lispro (Admelog) 1 Unit/0.01 Ml Unit SC 02/11/25 11:29 Not Given ACHS VINITA Protocol Ondansetron HCl 4 mg 01/11/25 23:00 01/13/25 09:54 Ondansetron Inj 2 Mg/Ml Inj 2 Ml IVP 02/10/25 22:59 4 mg Q6H PRN Administration NAUSEA OR VOMITING Protocol Pantoprazole Sodium 40 mg 01/12/25 09:00 01/13/25 08:09 Pantoprazole 40 Mg Tablet PO 02/11/25 08:59 40 mg QDAY VINITA Administration Polyethylene Glycol 17 gm 01/12/25 09:00 01/13/25 09:30 Polyethylene Glycol 17 Gm Packet PO 02/11/25 08:59 Not Given QDAY VINITA Sennosides 1 tab 01/12/25 09:00 01/13/25 08:09 Senna Tablet PO 02/11/25 08:59 1 tab QDAY VINITA Administration Protocol Plan Patient is a 59-year-old female with a past medical history of CAD s/p 3 stents most recent one occurring on 01/10/2025 [facility] by Dr. Hernández, hypertension, hyperlipidemia, and diabetes mellitus type 2 [id number],history of breast cancer s/p right mastectomy. Pateint is being admitted for acute liver injury and diffuse abdominal tenderness. #Transaminitis - likely ischemic vs viral , resolving #Hyperbilirubinemia #Constipation Patient presented with diffuse abdominal tenderness throughout all 4 quadrants, speciffically localized to supra-pubic region, soft and pain 5 out of 10. Patient recently had CAD status post PCI with 1 new stent added, thus No MRCP. Dr. Hernández plan to admit patient for observations given recent stent placement. Patient patient is on taking Ozempic 2.5 mg subcu once weekly and per patient history did stop metformin use prior PCI. Diagnostics: Bili 2.1, AST greater than 1000, ALT 638, acetaminophen less than 2. Hepatitis panel negative. Lipase 41 Gallbladder ultrasound (01/11/2025): Gallbladder not visualized common bile duct 0.5, fatty infiltrations throughout liver. CT abdomen/pelvis CT: 16mm left adrenal nodule, recommended elective MRI no hydronephrosis, no abdominal lymphadenopathy, no obstruction, no pericecal inflammatory changes, no diverticulosis or diverticulitis. Plan - Will trend AST and ALT - Hold atorvastatin - Miralax and Senna - IVF NS @ 80ML/HR - Patient is kept on n.p.o. in view of upper GI endoscopy in view of severe abdominal pain and heartburn by Dr. Brooke - Dr. Brooke recommended MRCP and ordered ceruloplasmin, Alpha 1 antitrypsin, #CAD status 3 stents (01/11/2025) #Hyperlipidemia Patient has a past medical history of CAD status PCI, 3 stents. Third stent recently added by Dr. Hernández at [facility] on 01/10/2025. Patient denied chest pain, but compalining of diffuse abdominal pain. EKG No ST elevation noted. SInus. NO AV block appreciated Plan -Carvedilol 25 mg BID -Plavix 75 mg qday -Aspirin 81 mg qday -HOLD Atorvastatin #Hypertension Patient has a past medical history of hypertension. On medication includes Losartan 100 mg qday and clonidine 0.1 mg daily. Plan -Resumed carvedilol 25 mg twice daily -Hold clonidine 0.1 mg daily Losartan, consider resuming zooming if blood pressure increases -continue to monitor blood pressure #Diabetes mellitus type 2 [id number] Patient has a past medical history of diabetes mellitus type 2. No previous. Home medication includes Ozempic 2.5 mg weekly, metformin 1000 twice daily medication, and glipizide 5 mg. Diagnostics Admission glucose 149 Plan -Sliding scale -Currently holding home medication -Hypoglycemia protocols Health Maintenance: Disp: medtele FEN: Famotidine DVT: Compression Device Code: Full Code Patient plan of care was discussed with the attending physician, Dr. Carlos Adams, PGY1
[2025-01-13] MEDS: LACTULOSE SYRUP 20 GM/30 ML UDC PO (19:58)
--- NOTE | 2025-01-13 21:22 | XR_ITS ---
Examination: Abdomen AP single view Technique: AP portable supine abdomen, single view Exam date and time: January 13, 2025 1101 hours INDICATIONS: Abdominal pain today. FINDINGS: Large amounts of stool throughout the colon. No obstruction. Surgical clips of right abdomen. No free air IMPRESSION: Large amounts of stool throughout the colon
[2025-01-13] MEDS: INSULIN LISPRO (AdmeLOG) 1 UNIT/0.01 ML UNIT SC (21:25)
--- NOTE | 2025-01-13 22:44 | PC.NURSE ---
Night nurse tried to contact radiology regarding drs order for abdominal xray 1v. When trying to call extension, no answer.
[2025-01-14] VITALS (10 sets, daily range): BP systolic 110–138; BP diastolic 78–89; PULSE 17–92; RESP 16–97; TEMP 36.1–36.6; O2SAT 95–98
[2025-01-14 06:10] LABS: Basophils # (Auto) 0.1 Thou/mm3 (0.0-0.2); Basophils % (Auto) 1 % (0-2.5); Eosinophils # (Auto) 0.3 Thou/mm3 (0.0-0.5); Eosinophils % (Auto) 3 % (0-10); Hematocrit 33.4 % (36.0-46.0); Hemoglobin 11.3 g/dL (12.0-16.0); Immature Granulocytes Auto 0.03 Thou/mm3 (0.00-0.00); Lymphocytes # (Auto) 1.9 Thou/mm3 (1.0-4.8); Lymphocytes % (Auto) 18 % (10-50); Mean Corpuscular HGB Conc 33.8 g/dl (31.0-37.0); Mean Corpuscular Hemoglobin 27.8 pg (25.0-35.0); Mean Corpuscular Volume 82 fL (80-100); Monocytes # (Auto) 0.7 Thou/mm3 (0.0-0.8); Monocytes % (Auto) 6 % (0-12); Neutrophils # (Auto) 7.4 Thou/mm3 (1.8-7.7); Neutrophils % (Auto) 72 % (37-80); Nucleated Red Blood Cell # 0.00 Thou/mm3 (0.00-0.00); Nucleated Red Blood Cell % 0 /100 WBC (0); Platelet Count 243 Thou/mm3 (140-440); RDW Standard Deviation 40.9 fL (36.4-46.3); Red Blood Count 4.06 Miln/mm3 (4.00-5.20); White Blood Count 10.3 Thou/mm3 (3.6-11.0)
[2025-01-14 06:35] LABS: Alanine Aminotransferase 346 U/L (10-49); Albumin, Serum 4.2 gm/dL (3.4-4.8); Albumin/Globulin Ratio 1.7 (1.2-2.2); Alkaline Phosphatase 240 U/L (46-116); Anion Gap 9 (7-16); Aspartate Amino Transferase 88 U/L (0-34); BUN/Creatinine Ratio 18 Ratio (12-20); Bilirubin,Total 0.5 mg/dL (0.3-1.2); Blood Urea Nitrogen 16 mg/dL (9-23); Calcium 9.9 mg/dL (8.3-10.6); Calcium (Corrected) 9.9 mg/dL (8.5-10.1); Carbon Dioxide 22.9 mMol/L (20.0-31.0); Chloride 109 mMol/L (98-107); Creatinine (Component) 0.9 mg/dL (0.6-1.3); Estimated Creatinine Clearance 68.3 mL/min (>60); Globulin 2.5 gm/dL (2.3-3.5); Glucose 143 mg/dL (74-106); Magnesium 1.7 mg/dL (1.6-2.6); Osmolality,Calculated 284 (275-295); Phosphorous 2.8 mg/dL (2.4-5.1); Potassium 3.7 mMol/L (3.4-5.1); Sodium 141 mMol/L (136-145); Total Protein 6.7 gm/dL (5.7-8.2); eGFR > 60 See Note
--- NOTE | 2025-01-14 07:45 | ESPR_ITS ---
Documentation for date of: 01/14/25 Subjective Subjective Interval history: Patient's did undergo EGD Gastritis esophagitis Stable cardiac status Exam Vital Signs Temp Pulse Resp BP Pulse Ox O2 Del Method O2 Flow Rate 97.8 F 89 18 110/78 95 Room Air 2 01/14/25 04:00 01/14/25 04:28 01/14/25 04:28 01/14/25 04:00 01/14/25 04:00 01/14/25 04:00 01/13/25 15:50 Routine HEENT Exam Head: Present normocephalic and atraumatic Eye: Present EOMI and PERRL ENT: Present mucous membranes moist Routine Neck Exam Neck: Present supple and trachea midline Routine Respiratory Exam Respiratory: Present chest non-tender, lungs clear, normal breath sounds and no resp distress Routine Cardiovascular Exam Cardiovascular: Present RRR Routine Abdominal Exam Abdominal: Present soft and normoactive bowel sounds Routine Extremities Exam Extremities: Present full ROM Routine Skin Exam Skin: Present intact, dry and warm Routine Neurological Exam Neurological: Present alert, oriented X3 and CN II-XII intact Routine Psychiatric Exam Psychiatric: Present normal affect and normal thought process Objective Labs 01/14/25 05:40 01/14/25 05:40 Labs: Laboratory Results - last 24 hr 01/14/25 05:40 WBC 10.3 RBC 4.06 Hgb 11.3 L Hct 33.4 L MCV 82 MCH 27.8 MCHC 33.8 RDW Std Deviation 40.9 Plt Count 243 Neut % (Auto) 72 Lymph % (Auto) 18 [place] % (Auto) 6 Eos % (Auto) 3 Baso % (Auto) 1 Neut # (Auto) 7.4 Lymph # (Auto) 1.9 [place] # (Auto) 0.7 Eos # (Auto) 0.3 Baso # (Auto) 0.1 Immature Gran # (Auto) 0.03 H Absolute Nucleated RBC 0.00 Immature Gran % 0 Nucleated RBC % 0 Sodium 141 Potassium 3.7 Chloride 109 H Carbon Dioxide 22.9 Anion Gap 9 BUN 16 Creatinine 0.9 Estim Creat Clear Calc 68.3 eGFR > 60 BUN/Creatinine Ratio 18 Glucose 143 H Calculated Osmolality 284 Calcium 9.9 Corrected Calcium 9.9 Phosphorus 2.8 Magnesium 1.7 Total Bilirubin 0.5 AST 88 H ALT 346 H Alkaline Phosphatase 240 H D Total Protein 6.7 Albumin 4.2 Globulin 2.5 Albumin/Globulin Ratio 1.7 Assessment & Plan A&P Narrative If needed hold off on aspirin Continue Plavix agree with current treatment plan Time Spent With Patient Time: Total time spent is greater than 50% in coordination of care (as documented) at patient's floor/unit and/or counseling patient:
--- NOTE | 2025-01-14 12:11 | PD.IMPROG ---
Documentation for date of: 01/14/25 Subjective Subjective Interval history: Patient evaluated Upper endoscopy showed gastritis and esophagitis Biopsies pending Exam Vital Signs Temp Pulse Resp BP Pulse Ox O2 Del Method O2 Flow Rate 97.5 F 76 18 115/87 H 98 Room Air 1 01/14/25 08:00 01/14/25 08:00 01/14/25 08:00 01/14/25 08:00 01/14/25 08:00 01/14/25 08:00 01/14/25 07:32 Objective Labs 01/14/25 05:40 01/14/25 05:40 Labs: Laboratory Results - last 24 hr 01/14/25 05:40 WBC 10.3 RBC 4.06 Hgb 11.3 L Hct 33.4 L MCV 82 MCH 27.8 MCHC 33.8 RDW Std Deviation 40.9 Plt Count 243 Neut % (Auto) 72 Lymph % (Auto) 18 [place] % (Auto) 6 Eos % (Auto) 3 Baso % (Auto) 1 Neut # (Auto) 7.4 Lymph # (Auto) 1.9 [place] # (Auto) 0.7 Eos # (Auto) 0.3 Baso # (Auto) 0.1 Immature Gran # (Auto) 0.03 H Absolute Nucleated RBC 0.00 Immature Gran % 0 Nucleated RBC % 0 Sodium 141 Potassium 3.7 Chloride 109 H Carbon Dioxide 22.9 Anion Gap 9 BUN 16 Creatinine 0.9 Estim Creat Clear Calc 68.3 eGFR > 60 BUN/Creatinine Ratio 18 Glucose 143 H Calculated Osmolality 284 Calcium 9.9 Corrected Calcium 9.9 Phosphorus 2.8 Magnesium 1.7 Total Bilirubin 0.5 AST 88 H ALT 346 H Alkaline Phosphatase 240 H D Total Protein 6.7 Albumin 4.2 Globulin 2.5 Albumin/Globulin Ratio 1.7 Impressions Impression: Gastritis biopsies pending esophagitis continue current management Assessment & Plan A&P Narrative If needed hold off on aspirin Continue Plavix agree with current treatment plan Time Spent With Patient Time: Total time spent is greater than 50% in coordination of care (as documented) at patient's floor/unit and/or counseling patient:
--- NOTE | 2025-01-14 14:11 | ESPR_ITS ---
<Statement entered by Charmaine Gonzalez MD - 01/14/25 17:32> I Charmaine Gonzalez MD reviewed the note and agree with the resident's assessment & plan with exceptions as below. I have personally reviewed labs, imaging, home meds/prior records, examined the patient, formulated and discussed management plan with the IM team. A 59-year-old female presented to ED with abdominal pain, nausea and vomiting noted to have significant transaminitis. Hepatitis panel unremarkable, no obvious source of ischemic or drug-induced hepatic insult. Possible viral hepatitis. Overnight significant improvement in LFTs, hepatobiliary ultrasound and CT abdomen is unremarkable, EGD did reveal esophagitis. Plan for MRCP by GI as patient has relatively chronic history of heartburn and abdominal pain. Will continue supportive care with IV fluids, Hold atorvastatin, continue dual antiplatelet therapy as patient has recent PCI. Additionally patient also going for mastectomy of the left breast (previously had right lumpectomy due to breast cancer) Documentation for date of: 01/14/25 Subjective Subjective Interval history: Labs significant for downtrending of LFTs. EGD last night indicated esophagitis and gastritis, biopsies were taken. Patient underwent MRCP per GI recommendation which showed no common hepatic or common bile duct stones. Hepatic duct was visualized to be 8 mm. Anticipating to discharge home within 24 hours on PPI twice daily. Exam Vital Signs Temp Pulse Resp BP Pulse Ox O2 Del Method O2 Flow Rate 97 F 77 18 129/88 H 95 Room Air 1 01/14/25 12:00 01/14/25 12:00 01/14/25 12:01/14/25 12:01/14/25 12:01/14/25 12:01/14/25 07:32 Narrative Exam General: Awake. HEENT: Normocephalic, atraumatic, mucous membranes moist. Heart: Regular rate and rhythm, no murmurs. Lungs: Clear to auscultation with no wheezing or crackles. Abdomen: Soft, nondistended, mild tenderness in the upper abdomen, positive bowel sounds. ?No guarding or rebound tenderness. Neurologic: Alert and oriented x3, no gross neurological deficit, and patient able to move all 4 extremities. Extremities: No edema. Skin: No rash or ecchymoses. Objective Labs 01/14/25 05:40 01/14/25 05:40 Labs: Laboratory Results - last 24 hr 01/14/25 05:40 WBC 10.3 RBC 4.06 Hgb 11.3 L Hct 33.4 L MCV 82 MCH 27.8 MCHC 33.8 RDW Std Deviation 40.9 Plt Count 243 Neut % (Auto) 72 Lymph % (Auto) 18 Sandoval % (Auto) 6 Eos % (Auto) 3 Baso % (Auto) 1 Neut # (Auto) 7.4 Lymph # (Auto) 1.9 Sandoval # (Auto) 0.7 Eos # (Auto) 0.3 Baso # (Auto) 0.1 Immature Gran # (Auto) 0.03 H Absolute Nucleated RBC 0.00 Immature Gran % 0 Nucleated RBC % 0 Sodium 141 Potassium 3.7 Chloride 109 H Carbon Dioxide 22.9 Anion Gap 9 BUN 16 Creatinine 0.9 Estim Creat Clear Calc 68.3 eGFR > 60 BUN/Creatinine Ratio 18 Glucose 143 H Calculated Osmolality 284 Calcium 9.9 Corrected Calcium 9.9 Phosphorus 2.8 Magnesium 1.7 Total Bilirubin 0.5 AST 88 H ALT 346 H Alkaline Phosphatase 240 H D Total Protein 6.7 Albumin 4.2 Globulin 2.5 Albumin/Globulin Ratio 1.7 Quality Measures Quality Measures none Assessment & Plan Assessment Current Active Medications: Generic Name Dose Route Start Last Admin Trade Name Freq PRN Reason Stop Dose Admin Acetaminophen 650 mg 01/13/25 11:32 Acetaminophen 325 Mg Tablet PO 02/12/25 11:31 Q6HR PRN PAIN Aspirin 81 mg 01/12/25 09:00 01/14/25 08:34 Aspirin Ec 81 Mg Tabec PO 02/11/25 08:59 Not Given QDAY VINITA Carvedilol 25 mg 01/12/25 11:30 01/14/25 08:34 Carvedilol 12.5 Mg Tablet PO 02/11/25 11:29 Not Given BIDWM VINITA Clopidogrel Bisulfate 75 mg 01/12/25 09:00 01/14/25 08:35 Clopidogrel Bisulfate 75 Mg Tablet PO 02/11/25 08:59 Not Given QDAY VINITA Dextrose 25 ml 01/11/25 23:05 Dextrose 50%-Water Inj 50 Ml Syringe IV 02/10/25 23:04 Q15MIN PRN BG 50-70 responsive npo pt Dextrose 50 ml 01/11/25 23:05 Dextrose 50%-Water Inj 50 Ml Syringe IV 02/10/25 23:04 Q15MIN PRN BG <50 OR BG <70 & pt unresponsive Glucagon 1 mg 01/11/25 23:05 Glucagon Inj 1 Mg Vial IM Q15MIN PRN BG <70, and no IV access Insulin Human Lispro 0 unit 01/12/25 11:30 01/14/25 11:20 Insulin Lispro (Admelog) 1 Unit/0.01 Ml Unit SC 02/11/25 11:29 Not Given ACHS [facility] Protocol Ondansetron HCl 4 mg 01/11/25 23:00 01/13/25 09:54 Ondansetron Inj 2 Mg/Ml Inj 2 Ml IVP 02/10/25 22:59 4 mg Q6H PRN Administration NAUSEA OR VOMITING Protocol Pantoprazole Sodium 40 mg 01/12/25 09:00 01/14/25 08:35 Pantoprazole 40 Mg Tablet PO 02/11/25 08:59 Not Given QDAY VINITA Polyethylene Glycol 17 gm 01/12/25 09:00 01/14/25 08:35 Polyethylene Glycol 17 Gm Packet PO 02/11/25 08:59 Not Given QDAY VINITA Sennosides 1 tab 01/12/25 09:00 01/14/25 08:35 Senna Tablet PO 02/11/25 08:59 Not Given QDAY [facility] Protocol Plan Patient is a 59-year-old female with a past medical history of CAD s/p 3 stents most recent one occurring on 01/10/2025 [facility] by Dr. Hernández, hypertension, hyperlipidemia, and diabetes mellitus type 2 [id number],history of breast cancer s/p right mastectomy. Pateint is being admitted for acute liver injury and diffuse abdominal tenderness. #Transaminitis - likely ischemic vs viral , resolving #Hyperbilirubinemia #Constipation Patient presented with diffuse abdominal tenderness throughout all 4 quadrants, speciffically localized to supra-pubic region, soft and pain 5 out of 10. Patient recently had CAD status post PCI with 1 new stent added, thus No MRCP. Dr. Hernández plan to admit patient for observations given recent stent placement. Patient patient is on taking Ozempic 2.5 mg subcu once weekly and per patient history did stop metformin use prior PCI. Diagnostics: Bili 2.1, AST greater than 1000, ALT 638, acetaminophen less than 2. Hepatitis panel negative. Lipase 41 Gallbladder ultrasound (01/11/2025): Gallbladder not visualized common bile duct 0.5, fatty infiltrations throughout liver. CT abdomen/pelvis CT: 16mm left adrenal nodule, recommended elective MRI no hydronephrosis, no abdominal lymphadenopathy, no obstruction, no pericecal inflammatory changes, no diverticulosis or diverticulitis. MRCP completed on 01/14/25 which was unremarkable Plan - Will continue to trend AST and ALT - Hold atorvastatin - Miralax and Senna - Started low fat diet - Dr. Brooke recommended MRCP and ordered ceruloplasmin, Alpha 1 antitrypsin, #CAD status 3 stents (01/11/2025) #Hyperlipidemia Patient has a past medical history of CAD status PCI, 3 stents. Third stent recently added by Dr. Hernández at [facility] on 01/10/2025. Patient denied chest pain, but compalining of diffuse abdominal pain. EKG No ST elevation noted. SInus. NO AV block appreciated Plan -Carvedilol 25 mg BID -Plavix 75 mg qday -Aspirin 81 mg qday -HOLD Atorvastatin in setting of elevated LFT's #Hypertension Patient has a past medical history of hypertension. On medication includes Losartan 100 mg qday and clonidine 0.1 mg daily. Plan -Resumed carvedilol 25 mg twice daily -Hold clonidine 0.1 mg daily Losartan, consider resuming zooming if blood pressure increases -continue to monitor blood pressure #Diabetes mellitus type 2 [id number] Patient has a past medical history of diabetes mellitus type 2. No previous. Home medication includes Ozempic 2.5 mg weekly, metformin 1000 twice daily medication, and glipizide 5 mg. Diagnostics Admission glucose 149 Plan -Sliding scale -Currently holding home medication -Hypoglycemia protocols Health Maintenance: Disp: medtele, anticipating discharge within 24 hours FEN: Famotidine DVT: Compression Device Code: Full Code This patient care was discussed with my attending Dr. Carlos Guzman MD PGY-2 Disclaimer: Minor errors in j2ee engineer may be present since this note was dictated by speech recognition software.
--- NOTE | 2025-01-14 15:35 | PC.SS ---
rounding note: Patient pending MRCP
[2025-01-14] MEDS: INSULIN LISPRO (AdmeLOG) 1 UNIT/0.01 ML UNIT SC (16:59)
--- NOTE | 2025-01-14 17:59 | XR_ITS ---
MRI abdomen, without contrast. MRCP Date and time of exam: January 14, 2025 1357 hours INDICATIONS: Diffuse abdominal pain beginning January 10, 2025 Technique: Multiple axial and coronal images of the abdomen have been obtained with the Siemens 1.5T MRI scanner. Images obtained included T1 weighted transverse images, T2-weighted transverse images, T2-weighted transverse images fat-suppressed, T2 weighted haste fat suppressed transverse images, T1 weighted images, in and out of phase images, T2-weighted coronal images, breath hold, T2 weighted haze coronal images as well as T2 weighted coronal thick slab images, MRCP. Findings: No focal liver lesions Gallbladder not visualized Common hepatic duct 8 mm No common hepatic or common bile duct stones Pancreatic duct is not dilated No pancreatic mass Spleen is not enlarged No ascites No hydronephrosis IMPRESSION: No common hepatic or common bile duct stones
[2025-01-15] VITALS (8 sets, daily range): BP systolic 101–179; BP diastolic 57–108; PULSE 67–80; RESP 16–98; TEMP 36.2–36.6; O2SAT 95–98
--- NOTE | 2025-01-15 07:54 | PD.IMPROG ---
Documentation for date of: 01/15/25 Subjective Subjective Interval history: Patient is is being treated for gastritis esophagitis Status post recent angioplasty to the right coronary artery Exam Vital Signs Temp Pulse Resp BP Pulse Ox O2 Del Method O2 Flow Rate 97.3 F 77 18 111/75 98 Room Air 1 01/15/25 07:41 01/15/25 07:41 01/15/25 07:41 01/15/25 07:41 01/15/25 07:41 01/15/25 07:41 01/14/25 21:20 Routine HEENT Exam Head: Present normocephalic and atraumatic Eye: Present EOMI and PERRL ENT: Present mucous membranes moist Routine Neck Exam Neck: Present supple and trachea midline Routine Respiratory Exam Respiratory: Present chest non-tender, lungs clear, normal breath sounds and no resp distress Routine Cardiovascular Exam Cardiovascular: Present RRR Routine Abdominal Exam Abdominal: Present soft and normoactive bowel sounds Routine Extremities Exam Extremities: Present full ROM Routine Skin Exam Skin: Present intact, dry and warm Routine Neurological Exam Neurological: Present alert, oriented X3 and CN II-XII intact Routine Psychiatric Exam Psychiatric: Present normal affect and normal thought process Objective Labs 01/14/25 05:40 01/14/25 05:40 Assessment & Plan A&P Narrative If needed hold off on aspirin Continue Plavix agree with current treatment plan Time Spent With Patient Time: Total time spent is greater than 50% in coordination of care (as documented) at patient's floor/unit and/or counseling patient:
[2025-01-15] MEDS: POLYETHYLENE GLYCOL 17 GM PACKET PO (08:22)
[2025-01-15] MEDS: ASPIRIN EC 81 MG TABEC PO (08:23)
[2025-01-15] MEDS: CLOPIDOGREL BISULFATE 75 MG TABLET PO (08:23)
[2025-01-15] MEDS: PANTOPRAZOLE 40 MG TABLET PO (08:23)
--- NOTE | 2025-01-15 09:20 | CHAP ---
Patient was experiencing nausea. I gave a word of sympathy and prayed with her.
--- NOTE | 2025-01-15 13:56 | ESDS_ITS ---
<Statement entered by Snow Cavazos MD - 01/15/25 19:51> In summary, 59-year-old female with PMHx of CAD s/p stent x 3 recently, HTN, HLD, T2DM, breast cancer s/p right mastectomy presented to ED with chief complaint of abdominal pain, with findings of elevated T. bili, LFTs and ALP. Admitted for acute liver injury. She was followed up by GI who recommended MRCP which showed no common hepatic or common bile duct stones. Her symptoms have resolved by the time of discharge. Remained afebrile and no leukocytosis. Meanwhile she had constipation which was managed with enema, abdominal XR showed no SBO pattern. She will follow-up with GI on discharge for pending workup labs for autoimmune and other possible causes. Recommended MIRALAX and COLACE as needed for constipation. Case was discussed with attending physician and senior resident. Snow Cavazos DO PGY II This document was transcribed using voice recognition technology. Minor inaccuracies may be present. Planned Discharge Date 01/15/25 DS: Providers Provider Date of admission: 01/11/25 23:00 Primary care physician: Yomi Berry MD Admitting Provider: Jacques House MD Attending Provider on Admission: Jacques House MD Consults: 01/11/25 21:48 Consult to Cardiology Stat Comment: Nausea vomiting, transaminitis Consulting Provider: Jacqueline Hernández 01/11/25 23:05 Referral Registered Dietitian Routine Comment: 01/12/25 03:12 Consult to Gastroenterology Routine Comment: elevated AST/ALTs s/p CAD stent 01/10/2025 & Ozempic Consulting Provider: Radha Brooke Attending Provider on DC: Dr. Karla Nieto MD Discharging Provider: Dr. Karla Nieto MD DS: Diagnosis Problem List Completed Was Problem List Reviewed/Reconciled?: Yes Hospital Course Hospital Course Hospital course: Patient is a 59-year-old female with a past medical history of CAD s/p recent 3 stents, hypertension, hyperlipidemia, and diabetes mellitus type 2, history of breast cancer s/p right mastectomy who presented to the ER with a chief complaint of lower abdominal tenderness and constipation, as well as nausea/vomiting. Symptoms present for 7-8 months in a more tolerable status. Labs in the ED remarkable for Total bili 2.1, AST greater than 1000 (H), ALT 638 (H), alkaline phosphatase 270 (H). Pt was admitted for inpatient treatment of a cute liver injury and diffuse abdominal tenderness in the context of recent PCI. Patient was followed by GI, who recommended MRCP. LFTs were downtrending during her hospital course. Pt was placed on NPO and bowel movements were stimulated with enema, MiraLAX, and Senna. On 01/15 patient is medically stable and safe to be discharged to outpatient follow up care under painter spring Dr. Brooke. Labs and Imaging: Hepatitis panel negative; pending CHANELLE/ANTIMICROBIAL, plasma copper, ceruloplasmin, Alpha 1 antitrypsin (to follow-up outpatient with GI) Abdomen pelvis CT: 16mm left adrenal nodule, no hydronephrosis, no obstruction, no cecal inflammatory changes, no diverticulitis Ultrasound gallbladder: Gallbladder not visualized (status post cholecystectomy), fatty infiltration through out the liver. EGD demonstrated esophagitis and EGD. MRCP: No common hepatic or common bile duct stones. Discharge Instructions: * Follow-up with PCP within 1-2 weeks of discharge. * Follow-up with GI, Dr. Brooke, within 1-2 weeks of discharge. Please discuss pending lab results. * Return to Emergency Room if symptoms persist, worsen, or new symptoms develop. * Continue taking COLACE once daily and or MIRALAX daily as needed for constipation. * Continue taking medications as prescribed below. Admission Diagnoses: #Transaminitis - likely ischemic vs viral , resolving #Hyperbilirubinemia #Constipation #CAD status 3 stents (01/11/2025) #Hyperlipidemia #Hypertension #Diabetes mellitus type 2 [id number] Case was discussed with attending physician, Dr. Nieto, and senior resident Dr. Cavazos. Cale Garcia, DO PGY I Time Spent with Patient Time attestation: Total time spent providing and/or coordinating discharge services: Time spent: Less than 30 minutes Exam Vital Signs Temp Pulse Resp BP Pulse Ox O2 Del Method O2 Flow Rate 97.4 F 74 18 143/92 H 98 Room Air 1 01/15/25 11:39 01/15/25 11:39 01/15/25 11:39 01/15/25 11:39 01/15/25 11:39 01/15/25 11:39 01/14/25 21:20 Narrative Exam General: Awake. HEENT: Normocephalic, atraumatic, mucous membranes moist. Heart: Regular rate and rhythm, no murmurs. Lungs: Clear to auscultation with no wheezing or crackles. Abdomen: Soft, nondistended, mild tenderness in the upper abdomen, positive bowel sounds. ?No guarding or rebound tenderness. Neurologic: Alert and oriented x3, no gross neurological deficit, and patient able to move all 4 extremities. Extremities: No edema. Skin: No rash or ecchymoses. Routine HEENT Exam Head: Present normocephalic and atraumatic Eye: Present EOMI and PERRL ENT: Present mucous membranes moist Routine Neck Exam Neck: Present supple and trachea midline Routine Respiratory Exam Respiratory: Present chest non-tender, lungs clear, normal breath sounds and no resp distress Routine Cardiovascular Exam Cardiovascular: Present RRR Routine Abdominal Exam Abdominal: Present soft and normoactive bowel sounds Comments: No erythema, bruising, or lesion visualized on the abdominal wall. Tenderness noted in LLQ. Bowel sounds tympanic x4 quadrants. Routine Extremities Exam Extremities: Present full ROM Routine Skin Exam Skin: Present intact, dry and warm Routine Neurological Exam Neurological: Present alert, oriented X3 and CN II-XII intact Routine Psychiatric Exam Psychiatric: Present normal affect and normal thought process Discharge Plan Plan Patient Disposition: HOME (Self Care) Patient condition on transfer: Stable Care Plan Goals: * Follow-up with PCP within 1-2 weeks of discharge. * Follow-up with GI, Dr. Brooke, within 1-2 weeks of discharge. Please discuss pending lab results. * Follow-up with PCP regarding 16 mm left adrenal nodule seen on CT. * Return to Emergency Room if symptoms persist, worsen, or new symptoms develop. * Continue taking COLACE once daily and or MIRALAX daily as needed for constipation. * Continue taking medications as prescribed below. Prescriptions/Referrals Prescriptions/Med Rec: New polyethylene glycol 3350 [Miralax] 17 gram/dose powder 4 g PO QDAY PRN (Reason: Constipation) Qty: 119 0RF Colace Clear 50 mg capsule 50 mg PO QDAY PRN (Reason: constipation) 30 Days Qty: 30 0RF Continued aspirin 81 mg Tablet,Delayed Release (Dr/Ec) 81 mg PO QDAY calcium carbonate-vitamin D3 600 mg-10 mcg (400 unit) tablet 1 tab PO BID Patient Comments: TAKE 1 TABLET BY MOUTH TWICE A DAY carvedilol 25 mg tablet 25 mg PO BID Patient Comments: TAKE 1 TABLET BY MOUTH TWICE A DAY WITH FOOD FOR 90 DAYS clonidine HCl 0.1 mg tablet 0.1 mg PO DAILY Patient Comments: TAKE 1 TABLET BY MOUTH EVERY DAY FOR 30 DAYS glipizide 5 mg tablet 5 mg PO BID Patient Comments: TAKE 1 TABLET BY MOUTH TWICE A DAY FOR 90 DAYS losartan 100 mg tablet 100 mg PO DAILY Patient Comments: TAKE 1 TABLET BY MOUTH EVERY DAY Held atorvastatin [Lipitor] 80 mg Tablet 80 mg PO QPM Hold Instructions: Resume on 02/14/25. hold until you see your PCP Discontinued metformin 1,000 mg Tablet 1,000 mg PO BID Januvia 100 mg Tablet 100 mg PO QDAY clopidogrel [Plavix] 75 mg Tablet 75 mg PO QDAY Referrals: Yomi Berry MD [Primary Care Provider] - Radha Brooke MD [Physician] - Patient/Caregiver Discharge Instructions Discharge Activity: activity as tolerated and resume usual activities Education Materials: Abdominal Pain, Self-Care for Vomiting and Diarrhea, Liver Problems Signs Ch Print Language: Setswana Stand Alone Forms: Vilma Award Info., Patient Portal Info Letter Discharge Order Discharge Orders: Discharge (Routine); Ordered 01/15/25 Ordered By: Snow Cavazos Quality Discharge Quality Measures VTE prophylaxis Attestestation Attestation I attest that I was physically present for the evaluation, physical examination, lab and imaging review of the patient with the residents. I discussed the case with the residents and agree with the findings and plans of care as documented above. Karla Nieto MD
--- NOTE | 2025-01-15 15:03 | XR_ITS ---
Examination: Abdomen AP single view Technique: AP portable supine abdomen, single view Exam date and time: January 15, 2025 1413 hours INDICATIONS: Abdominal pain today FINDINGS: Moderate stool throughout the colon. No findings of small bowel obstruction. Surgical clips upper right abdomen Moderate osteopenia. IMPRESSION: No pattern diagnostic for small bowel obstruction.
[2025-01-21 06:45] LABS: ANA Screen, IFA NEGATIVE (NEGATIVE); Alpha-1-Antitrypsin* 162 mg/dL (83-199); Ceruloplasmin* 23 mg/dL (14-48); Copper* 97 mcg/dL (70-175); Mitochondrial Ab NEGATIVE (NEGATIVE)
== END 2025-01-15 18:21 | disposition home or self-care (01) | DRG 442 ==
LOC: SERX 21:29 → SERHOLD 23:24 → S3SX 01-12 14:58
PROVIDERS: Nurse Practitioner Family; Specialist; Admitting Provider Internal Medicine; Emergency Provider Emergency Medicine; PCP Family Medicine; Referring Provider Emergency Medicine; Visit Provider Internal Medicine
PROC: 0DB78ZX Excision of Stomach, Pylorus, Via Natural or Artificial Opening Endoscopic, Diagnostic (ICD-10-PCS; CPT 43239; principal; 2025-01-13 14:30)
DX: S36.119A Unspecified injury of liver, initial encounter (principal); L03.90 Cellulitis, unspecified; E27.8 Other specified disorders of adrenal gland; Z90.49 Acquired absence of other specified parts of digestive tract; K76.0 Fatty (change of) liver, not elsewhere classified; I10 Essential (primary) hypertension; E78.5 Hyperlipidemia, unspecified; E11.9 Type 2 diabetes mellitus without complications; Z95.5 Presence of coronary angioplasty implant and graft; K21.9 Gastro-esophageal reflux disease without esophagitis; I25.10 Atherosclerotic heart disease of native coronary artery without angina pectoris; K59.00 Constipation, unspecified; K29.70 Gastritis, unspecified, without bleeding; K20.90 Esophagitis, unspecified without bleeding; R12 Heartburn; Z85.3 Personal history of malignant neoplasm of breast; N63.0 Unspecified lump in unspecified breast; Z79.84 Long term (current) use of oral hypoglycemic drugs; Z79.02 Long term (current) use of antithrombotics/antiplatelets; Z79.82 Long term (current) use of aspirin; Z79.85 Long-term (current) use of injectable non-insulin antidiabetic drugs; Z90.11 Acquired absence of right breast and nipple; Z79.899 Other long term (current) drug therapy; Z90.13 Acquired absence of bilateral breasts and nipples
CPT/HCPCS: 36415; 74018; 74177; 76705; 80053; 80061; 80074; 80307; 80320; 80329; 81001; 82010; 82103; 82390; 82525; 83036; 83540; 83550; 83690; 83735; 84100; 84443; 84484; 85025; 85610; 85730; 86038; 86255; 87081; 93005; 93225; 96361; 96374; 96375; 99285; A4649; J1200; J1815; J2250; J2405; J3010; J3490; J7030; Q9967; S8037; 74181; A9270; G0480

== ENCOUNTER 2025-02-07 08:43 | Emergency (ER) | payer MEDICARE, MEDICAID, SELFPAY ==
[2025-02-07 08:53] VITALS: BP 146/91; PULSE 65; RESP 17; TEMP 36.9; O2SAT 97; BMI 30.9
--- NOTE | 2025-02-07 09:16 | PD.EDRME ---
Rapid Medical Screening Exam RME Arrival date/time: 02/07/25 08:43 Chief Complaint: Recheck/Abnormal Lab/Rx Vital signs: Vital Signs Temperature 98.5 F 02/07/25 08:53 Pulse Rate 65 02/07/25 08:53 Respiratory Rate 17 02/07/25 08:53 Blood Pressure 146/91 H 02/07/25 08:53 Pulse Oximetry (%) 97 02/07/25 08:53 Oxygen Delivery Method Room Air 02/07/25 08:53 Pulse ox room air is 97% Vital signs reviewed by provider: Yes RME Narrative: Patient is requesting or was referred by primary care physician for repeat liver labs. Patient continues to have burning sensation to the abdomen. This has been ongoing x 1 year.
[2025-02-07 10:05] LABS: Basophils # (Auto) 0.1 Thou/mm3 (0.0-0.2); Basophils % (Auto) 1 % (0-2.5); Eosinophils # (Auto) 0.3 Thou/mm3 (0.0-0.5); Eosinophils % (Auto) 4 % (0-10); Hematocrit 33.6 % (36.0-46.0); Hemoglobin 11.2 g/dL (12.0-16.0); Immature Granulocytes Auto 0.02 Thou/mm3 (0.00-0.00); Lymphocytes # (Auto) 1.9 Thou/mm3 (1.0-4.8); Lymphocytes % (Auto) 27 % (10-50); Mean Corpuscular HGB Conc 33.3 g/dl (31.0-37.0); Mean Corpuscular Hemoglobin 27.9 pg (25.0-35.0); Mean Corpuscular Volume 84 fL (80-100); Monocytes # (Auto) 0.5 Thou/mm3 (0.0-0.8); Monocytes % (Auto) 7 % (0-12); Neutrophils # (Auto) 4.4 Thou/mm3 (1.8-7.7); Neutrophils % (Auto) 61 % (37-80); Nucleated Red Blood Cell # 0.00 Thou/mm3 (0.00-0.00); Nucleated Red Blood Cell % 0 /100 WBC (0); Platelet Count 245 Thou/mm3 (140-440); RDW Standard Deviation 43.8 fL (36.4-46.3); Red Blood Count 4.02 Miln/mm3 (4.00-5.20); White Blood Count 7.2 Thou/mm3 (3.6-11.0)
--- NOTE | 2025-02-07 10:19 | PD.EDRECHK ---
ED Recheck Abnl Lab Rx-RME/HPI General Chief Complaint: Recheck/Abnormal Lab/Rx Stated Complaint: told to follow up here for her liver Time Seen by Provider: 02/07/25 09:26 Arrival date/time: 02/07/25 08:43 Limitations: no limitations RME / HPI RME / HPI narrative: Patient is requesting or was referred by primary care physician for repeat liver labs. Patient continues to have burning sensation to the abdomen. This has been ongoing x [address] GONZALEZ MAIN ED EVALUATION: 59-year-old female with past medical history of CAD s/p 3 stents (most recently on 01/10/2025 at [facility] by Dr. Hernández), hypertension, hyperlipidemia, type 2 diabetes mellitus ([id number]), and breast cancer s/p right mastectomy presents to the Emergency Department for follow-up evaluation with Dr. Brooke. Patient was admitted from January 12 through January 15 for acute liver injury and diffuse abdominal tenderness. She reports no increased abdominal pain and states she is feeling better. No nausea, vomiting, blood in stools, or other new symptoms. She is currently awaiting removal of the remaining breast and undergoing follow-up for her abdominal/liver issues under Dr. Brooke?s care. Related Data Home Medications ?Medication ?Instructions ?Recorded ?Confirmed aspirin 81 mg tablet,delayed 81 mg PO QDAY 04/18/24 01/13/25 release atorvastatin 80 mg tablet (Lipitor) 80 mg PO QPM 04/18/24 01/13/25 Held on 01/15/25. Instructions: Resume on 02/14/25. hold until you see your PCP calcium 600 mg (as 1 tab PO BID 01/13/25 01/13/25 carbonate)-vitamin D3 10 mcg (400 unit) tablet carvedilol 25 mg tablet 25 mg PO BID 01/13/25 01/13/25 clonidine HCl 0.1 mg tablet 0.1 mg PO DAILY 01/13/25 01/13/25 glipizide 5 mg tablet 5 mg PO BID 01/13/25 01/13/25 losartan 100 mg tablet 100 mg PO DAILY 01/13/25 01/13/25 Previous Rx's ?Medication ?Instructions ?Recorded docusate sodium 50 mg capsule 50 mg PO QDAY PRN constipation 30 01/15/25 (Colace Clear) days #30 caps polyethylene glycol 3350 17 4 g PO QDAY PRN Constipation #119 01/15/25 gram/dose oral powder (Miralax) grams Allergies Allergy/AdvReac Type Severity Reaction Status Date / Time No Known Allergies Allergy Verified 04/18/24 07:36 Review of Systems Review of Systems Systems Reviewed: All systems reviewed, normal except as documented Past Medical History Past Medical History CARDIAC: Positive Cardiac Disorders (HTN, CAD), Coronary Artery Disease, Peripheral Vascular Disease, Hypercholesterolemia, Edema (mary legs) and Hypertension GASTROINTESTINAL: Positive Gastrointestinal Disorders and Obesity REPRODUCTIVE: Positive Breast Cancer (right ,) and Previous Pregnancies MUSCULOSKELETAL: Positive Musculoskeletal Disorders, Arthritis and Fractures (right ankle) ENDOCRINE: Positive Endocrine Disorders and Diabetes Mellitus Type 2 (OZEMPIC, GLIPIZDE) HEMATOLOGIC: Positive Blood Disorders and Anemia PSYCHO/SOCIAL: Positive Anxiety OTHER HISTORY: Positive Hospitalization (surgery), Autoimmune Disease, Falls, Chemotherapy, Radiation Therapy, Chicken Pox, Cancer and Breast Cancer (right ,) Family History FAMILY HISTORY: Positive Family Psychiatric Problems, Family Respiratory Disorders, Family Cardiac Disorders, Family Cancer and Family Surgery Surgical History SURGICAL: Positive Coronary Stent (x2, November 2023, January 2024), Abdominal Surgery, Joint Replacement, Open Reduction Internal Fixation (right ankle), Mastectomy (right), Lumpectomy and Tubal Ligation Social History SMOKING STATUS: Former smoker SUBSTANCE USE: marijuana ED Exam General Limitations: Present no limitations General appearance: Present alert and in no apparent distress Head Head exam: Present atraumatic, normocephalic and normal inspection Eye Eye exam: Present normal appearance, PERRL and EOMI ENT ENT exam: Present normal exam, normal oropharynx and mucous membranes moist Neck Neck exam: Present normal inspection, full ROM and trachea midline Chest Chest inspection: Present normal inspection and symmetric chest wall rise Respiratory Respiratory exam: Present normal lung sounds bilaterally Cardiovascular Cardiovascular exam: Present regular rate, normal rhythm and normal heart sounds Abdominal Exam Abdominal exam: Present soft and normal bowel sounds Extremities Exam Extremities exam: Present normal inspection and full ROM Back Exam Back exam: Present normal inspection and full ROM Neurological Exam Neurological exam: Present alert, oriented X3 and CN II-XII intact Psychiatric Psychiatric exam: Present normal affect and normal mood Skin Skin exam: Present warm, dry, intact and normal color Course Quality Measures none Orders Category Date Time Status Amylase Stat Lab 02/07/25 09:54 Completed CBC Stat Lab 02/07/25 09:54 Completed Comprehensive Metabolic Panel Stat Lab 02/07/25 09:54 Completed Lipase Stat Lab 02/07/25 09:54 Completed Procalcitonin Stat Lab 02/07/25 09:54 Completed Sed Rate (ESR) Stat Lab 02/07/25 09:54 Completed Troponin I Stat Lab 02/07/25 09:54 Completed Urinalysis Stat Lab 02/07/25 10:21 Completed Vital Signs Vital signs: Vital Signs Temperature 98.5 F 02/07/25 08:53 Pulse Rate 65 02/07/25 08:53 Respiratory Rate 17 02/07/25 08:53 Blood Pressure 146/91 H 02/07/25 08:53 Pulse Oximetry (%) 97 02/07/25 08:53 Oxygen Delivery Method Room Air 02/07/25 08:53 Recheck / Abnormal Lab / Rx MDM Narrative MDM Narrative:: Emily Walton am scribing for and in the presence of Dr. Gonzalez. Patient is a 59-year-old female that is in the emergency department with concerns for follow-up for abnormal liver function tests previously. Vital signs and exam as listed. Patient abdomen soft nondistended nontender, no rebound or guarding, no evidence of acute abdomen at this time. Patient is asymptomatic. Ordered labs. Labs without any significant acute hematologic or metabolic abnormality. Troponin elevated EKG without evidence of ischemia or arrhythmia. Went to reevaluate patient multiple times however patient eloped from the emergency department. Patient data External records reviewed:: [facility] previous records Clinical information provided by:: patient Social determinants that could affect healthcare access:: none Patient has the following chronic illnesses:: CAD s/p 3 stents (most recently on 01/10/2025 at [facility] by Dr. Hernández), hypertension, hyperlipidemia, type 2 diabetes mellitus ([id number]), and breast cancer s/p right mastectomy. She is currently awaiting removal of the remaining breast and undergoing follow-up for her abdominal/liver issues under Dr. Clementes care. How is presenting disease/condition affected by chronic disease/condition?: exacerbated by Evaluation data The following diagnostics were reviewed and interpreted by me:: lab results and radiology exam(s) Lab and/or radiology exams considered but not ordered:: none Interpretation Summary: Eloped and tests not done. Medications / Prescriptions Medications or Prescriptions considered but not ordered:: none Medication administrations:: see above if any Consultations Consultation(s) initiated? (list below): No Diagnosis Recheck Differential Diagnosis: other (resolving drug-induced liver injury, hepatic metastasis, and biliary obstruction) Most likely diagnosis given after review of the tests above:: Full work-up not completed, patient eloped. Admission Indicated Admission indicated?: not indicated Admission Request Was there a request for admission?: No Disposition Plan Disposition Plan: other (specify) (Elopement) Discharge Plan Plan Patient Disposition: Elopement Prescriptions/Referrals Prescriptions/Med Rec: No Action aspirin 81 mg Tablet,Delayed Release (Dr/Ec) 81 mg PO QDAY atorvastatin [Lipitor] 80 mg Tablet 80 mg PO QPM calcium carbonate-vitamin D3 600 mg-10 mcg (400 unit) tablet 1 tab PO BID Patient Comments: TAKE 1 TABLET BY MOUTH TWICE A DAY carvedilol 25 mg tablet 25 mg PO BID Patient Comments: TAKE 1 TABLET BY MOUTH TWICE A DAY WITH FOOD FOR 90 DAYS clonidine HCl 0.1 mg tablet 0.1 mg PO DAILY Patient Comments: TAKE 1 TABLET BY MOUTH EVERY DAY FOR 30 DAYS glipizide 5 mg tablet 5 mg PO BID Patient Comments: TAKE 1 TABLET BY MOUTH TWICE A DAY FOR 90 DAYS losartan 100 mg tablet 100 mg PO DAILY Patient Comments: TAKE 1 TABLET BY MOUTH EVERY DAY polyethylene glycol 3350 [Miralax] 17 gram/dose powder 4 g PO QDAY PRN (Reason: Constipation) Qty: 119 0RF Colace Clear 50 mg capsule 50 mg PO QDAY PRN (Reason: constipation) 30 Days Qty: 30 0RF Referrals: Yomi Berry MD [Primary Care Provider] - In 1 week Radha Brooke MD [Physician] - In 1 week Problem List Clinical Impression: Chronic epigastric pain Patient/Caregiver Discharge Instructions Print Language: Angolan Stand Alone Forms: [facility] Award Info., Patient Portal Info Letter
[2025-02-07 10:25] LABS: Alanine Aminotransferase 11 U/L (10-49); Albumin, Serum 4.4 gm/dL (3.4-4.8); Albumin/Globulin Ratio 1.6 (1.2-2.2); Alkaline Phosphatase 119 U/L (46-116); Amylase 89 U/L (30-118); Anion Gap 10 (7-16); Aspartate Amino Transferase 18 U/L (0-34); BUN/Creatinine Ratio 18 Ratio (12-20); Bilirubin,Total 0.4 mg/dL (0.3-1.2); Blood Urea Nitrogen 14 mg/dL (9-23); Calcium 9.7 mg/dL (8.3-10.6); Calcium (Corrected) 9.7 mg/dL (8.5-10.1); Carbon Dioxide 26.3 mMol/L (20.0-31.0); Chloride 107 mMol/L (98-107); Creatinine (Component) 0.8 mg/dL (0.6-1.3); Estimated Creatinine Clearance 77.3 mL/min (>60); Globulin 2.7 gm/dL (2.3-3.5); Glucose 95 mg/dL (74-106); Lipase 40 U/L (12-53); Osmolality,Calculated 285 (275-295); Potassium 4.4 mMol/L (3.4-5.1); Sodium 143 mMol/L (136-145); Total Protein 7.1 gm/dL (5.7-8.2); eGFR > 60 See Note
[2025-02-07 10:51] LABS: Collection Type, Urine Clean Catch
[2025-02-07 10:57] LABS: Procalcitonin < 0.04 ng/ml (0.0-0.49); Troponin I < 0.002 ng/mL (0.0-0.045)
[2025-02-07 11:09] LABS: Bacteria,Urine Rare; Bilirubin,Urine Negative (Negative); Blood,Urine Negative (Negative); Clarity,Urine Clear (Clear/Hazy); Color,Urine Yellow (Lt Yel-Yel); Glucose, Urine Negative (Negative); Ketones,Urine Negative (Negative); Leukocyte Esterase,Urine Positive (Negative); Nitrite,Urine Negative (Negative); PH,Urine 6.5 (5.0-7.0); Protein,Urine Negative (Neg - Trace); RBC,Urine 4 /hpf (0-3); Specific Gravity,Urine 1.025 (1.001-1.035); Squamous Epithelial Cell,Urine 3 /hpf (0-5); Urobilinogen,Urine Negative mg/dL (0.0-1.0); WBC,Urine 2 /hpf (0-5)
--- NOTE | 2025-02-07 11:16 | PC.NURSE ---
NA x 1 @ 11:15
[2025-02-07 11:30] LABS: Sed Rate (ESR) 16 mm/hr (0-30)
--- NOTE | 2025-02-07 12:01 | PC.NURSE ---
NA X 2 @12:00
--- NOTE | 2025-02-07 12:22 | PC.NURSE ---
NA X 3 @ 12:22
== END 2025-02-07 12:22 | disposition left against medical advice (07) ==
PROVIDERS: Physician Assistant; Emergency Provider Emergency Medicine; PCP Family Medicine
DX: R10.13 Epigastric pain (principal); G89.29 Other chronic pain; N63.42 Unspecified lump in left breast, subareolar; Z85.3 Personal history of malignant neoplasm of breast; Z53.29 Procedure and treatment not carried out because of patient's decision for other reasons
CPT/HCPCS: 36415; 80053; 81001; 82150; 82607; 82728; 82746; 83540; 83550; 83690; 84145; 84484; 85025; 85046; 85652; 86300; 99212; 99283; G0463

== ENCOUNTER 2025-02-07 11:04 | Outpatient (RCR) | payer MEDICARE, MEDICAID, SELFPAY ==
--- NOTE | 2025-02-11 06:32 | CTCFLWUP_ITS ---
Patient: KENNETH BURDICK : 1965 Page 8 of 11 FOLLOW UP NOTE DATE OF SERVICE: 02/07/2025 NAME: KENNETH BURDICK ACCOUNT: [id number] : 1965 AGE: 59 INTERVAL HISTORY: Kenneth, a postmenopausal woman with history of right mastectomy, presented for follow-up after cardiac stent placement 3 weeks ago. She reported stent site tenderness, joint stiffness, and cognitive concerns including word-finding difficulties. Medical history included demyelinating brain disease, liver issues requiring recent hospitalization, and cancer. She was taking Plavix and aspirin following stent placement. Management included continuing dual antiplatelet therapy, deferring planned left breast biopsy for 3 months pending education program manager clearance, hepatology referral for liver evaluation, and neurology referral for cognitive symptoms and demyelinating disease. Subjective: Kenneth Mireles, a postmenopausal woman with a history of right-side mastectomy, presents for follow-up after recent cardiac stent placement and multiple health concerns. The patient underwent cardiac stent placement on January 10, approximately 3 weeks ago. She reports ongoing soreness and tenderness at the stent site, with occasional tingling in her neck. The patient has been wearing a protective brace to remind herself to limit activity, but she remains very active at home, engaging in cooking, yard work, and other household tasks. The patient mentions experiencing joint stiffness, which she attributes to menopause. She is currently on blood thinners (Plavix and aspirin) following her stent placement, which has led to prolonged healing times when she cuts herself. The patient also reports issues with her liver, though she has not yet seen a doctor to determine the specific problem. She mentions that she was hospitalized 3 weeks ago, possibly related to these liver concerns. Regarding her breast health, Ms. Burdick was previously considering breast mastectomy and reconstruction for her left breast. However, due to her recent cardiac issues and other health concerns, she has decided to postpone this procedure on her doctor's advice to prioritize her heart health. A left breast biopsy was also planned but has been delayed due to her current medical status and use of blood thinners. The patient reports some cognitive concerns, including word-finding difficulties and occasionally forgetting where she's going or what she's saying while driving. She denies a family history of dementia but mentions that her parents had cancer and heart disease. Medical History - Demyelinating disease in the brain - Menopause - Carpal tunnel syndrome (suspected) - Liver issues, recently hospitalized - Heart condition requiring stent placement on January 10, 2025 - Right-side mastectomy - Cancer (unspecified type) Surgical History - Cardiac stent placement on January 10, 2025 - Right mastectomy (date not specified) Medications and Supplements - Plavix - Aspirin - Blood thinners Family History - Mother: Cancer, heart disease, at age 65 - Father: Cancer, heart disease, at age 75 Social History - Occupation: Engages in household activities including cooking and yard work - Physical Activity: Very active, 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 HEENT: Positive for neck tingling. Cardiovascular: Positive for chest tenderness at stent site. Musculoskeletal: Positive for joint pain, knee pain. Neurological: Positive for memory issues, word-finding difficulties. Objective: Laboratory, Imaging, and Diagnostic Test Results - MRI of the brain: Shows demyelinating disease ONCOLOGY HISTORY:?[facility] On[facility] Hx? DIAGNOSIS: Invasive adenocarcinoma DATE OF DIAGNOSIS: 12/28/2017 STAGE/TNM: [id number] TREATMENT HISTORY: Care?Plan Start?Date Cycle Day Intent HISTORY OF PRESENT ILLNESS: This is a 59-year-old Japanese-speaking female with the following oncology history. 12/28/2017: The patient had surgery done for right breast mass 01/20/2018: Ms. Perry had right breast mastectomy 03/09/2018: Received 1 cycle of TCH chemotherapy at Dr. Lange's office in [place]. 03/30/2018 - 06/22/2018: Received 5 cycles of TCH plus Perjeta. 07/13/2018 - 03/23/2019: She received adjuvant Herceptin and Perjeta every 3 weeks for a total of 12 cycles. 03/15/2023: MRI of the brain with and without contrast 04/14/2023: PET/CT scan 04/14/2023: Unilateral left breast screening digital mammogram? 04/14/2023: Left breast ultrasound? 05/02/2023: Bilateral diagnostic mammograms? 05/02/2023: Right breast ultrasound 05/16/2023: Bilateral MRIs of the breast with and without contrast 05/17/2023: Repeat left breast ultrasound to be done in the presence of radiologist and biopsy of the mass if it is found in the left breast is requested. OTHER MEDICAL HISTORY/CONDITIONS: Right breast cancer - dx 2018 HTN Diabetes Covid - 2019 Anemia GERD Hyperlipidemia Right breast reconstruction - 2019- Dr. 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 aspirin - 81 mg 1 tab In the morning 2. atorvastatin - 80 mg 1 tab Daily 3. Calcium 600 + D(3) - 600 mg-10 mcg (400 unit) 1 tab 1 tab twice daily 4. carvedilol - 25 mg 1 tab Twice a Day 5. clonidine - 0.1 mg 1 tab Daily 6. Cozaar - 100 mg 1 tab Daily 7. glipiZIDE - 5 mg 1 tab Twice a Day?Palabra Meds? Medications Last Reconciled by Kenneth Mead MA on 11/28/2024 ALLERGIES: No Known Drug Allergies REVIEW OF SYSTEMS: A complete 14-point review of systems was performed and is negative except as noted in interval history. PHYSICAL EXAMINATION:?CloneBlock PE? VITAL SIGNS: Temperature?98, B/P?163/84, Oxygen?Saturation?100% PAIN: 0 - No pain ECOG Performance Status: 0 - Asymptomatic and fully active Patient is very upset Right breast with the TRAM reconstruction noted Left breast-patient is very tender so examination not completed LABORATORY DATA: I have personally reviewed and interpreted each of the patient?s relevant lab tests, abnormal findings are below: Date 02/07/25 ??WHITE?BLOOD?COUNT?(Thou/mm3) ? 7.2 ??RED?BLOOD?COUNT?(Miln/mm3) ? 4.02 ??HEMOGLOBIN?(gm/dl) ? 11.2?L ??HEMATOCRIT?(%) ? 33.6?L ??PLATELET?COUNT?(Thou/mm3) ? 245 ??NEUTROPHILS?%,?AUTO?(%) ? 61 ??LYMPH?%,?AUTO?(%) ? 27 ??NEUTROPHILS,?AUTO?(Thou/mm3) ? 4.4 ??GLUCOSE,RANDOM?(mg/dL) 103 95 ??BLOOD?UREA?NITROGEN?(mg/dL) 16 14 ??CREATININE?(mg/dL) 0.80 0.80 ??SODIUM?(mmol/L) 143 143 ??POTASSIUM?(mmol/L) 4.5 4.4 ??CHLORIDE?(mmol/L) 108?H 107 ??CrCl?(CandG)?(ml/min) 75.28 75.28 ??AST/SGOT?(Unit/L) 16 18 ??ALT/SGPT?(Unit/L) 11 11 ??ALKALINE?PHOSPHATASE?(Unit/L) 112 119?H ??BILIRUBIN,?TOTAL?(mg/dL) 0.3 0.4 ??PROTEIN?TOTAL?(gm/dl) 6.7 7.1 ??ALBUMIN,?SERUM?(gm/dl) 4.2 4.4 ??GLOBULIN?(gm/dl) 2.5 2.7 ??ALBUMIN/GLOBULIN?RATIO 1.7 1.6 ??CALCIUM,?SERUM?(mg/dL) 9.5 9.7 ??CALCIUM?SERUM?(CORRECTED)?(mg/dL) 9.5 9.7 ??TOTAL?IRON?BINDING?CAP?(S*)?(mcg/dL) 329 ? ??UNBOUND?IBC?(mcg/dL) 291 ? ASSESSMENT/PLAN:?Dangelo Jefferson Assessment/Plan? 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 Diasgnosed in 12/2017 Initial lumpectomy but margins negative so had right mastectomy and reconstruction She had TCH followed bt TCHP and adjuvant HP completed Doing well with no eveidence of recuurence Kenneth Burdick, a patient with a history of breast cancer and mastectomy with TRAM flap reconstruction, presents for follow-up regarding a suspicious mass in the left breast found on ultrasound. Suspicious breast mass Assessment: A recent ultrasound on September 28 revealed a suspicious mass in the left breast, warranting further investigation. The patient has not yet undergone a biopsy or consulted with breast surgeons as recommended. Given the patient's history of breast cancer, this finding requires immediate attention to rule out recurrence or new primary breast cancer. Plan: - Schedule breast biopsy, ultrasound, and mammogram to further evaluate the suspicious mass - Refer to breast surgeon for consultation and potential mastectomy with reconstruction - Consider referral to a surgeon skilled in reconstruction techniques for optimal cosmetic results - Inform patient about risks, benefits, and alternatives of mastectomy and reconstruction History of breast cancer Assessment: Patient has a history of breast cancer treated with mastectomy and TRAM flap reconstruction. Currently, she is not on any hormone-blocking medication, and her ERP (likely referring to ER/TN status) is negative. The patient is experiencing normal menopause without hormone replacement therapy due to the increased risk of cancer recurrence associated with hormone replacement in breast cancer survivors. Plan: - Continue to avoid hormone replacement therapy - Discuss non-hormonal options for managing menopausal symptoms, such as matcha or black cohosh - Monitor for signs of cancer recurrence during follow-up visits Gastrointestinal issues Assessment: Patient has reported stomach issues, necessitating a referral to gastroenterology for further evaluation. Plan: - Follow up on gastroenterology referral approved on July 02 - Advise patient that she can see any disability advocate without needing additional authorization Vascular concerns Assessment: Patient has a history of leg issues, possibly related to vascular problems. A recent ultrasound showed no evidence of blood clots. Plan: - Continue current anticoagulation therapy as prescribed by primary care physician - Reinforce importance of dietary modifications to support vascular health - Monitor for any new or worsening leg symptomsLeft breast retroareolar mass lesion in the left breast Again patient has been referred for biopsy but is still not completed Patient did had in 2022 ultrasound-guided biopsy of the left breast lesion showed intraductal papilloma and at that time was planned for mastectomy but Ms. Burdick could not find a breast surgeon whom she likes I will send patient back to Dr. Nguyen Patient will explore reconstruction once mastectomy is completed by him She understand that reconstruction once mastectomy is complete is very disfiguring in most cases as she will need implant to preserve the shape of the breast. Patient had a negative biopsy in the past with interventional radiology and would like to follow-up with the Dr Nguyen now #3 MRI scan of the brain 02/2023 showed punctate focus increased signal in the right parietal white matter suspicious for demyelinating disease. Assessment: Patient reports occasional word-finding difficulties, forgetting destinations while driving, and losing train of thought. Brain MRI has shown evidence of demyelinating disease, raising concern for potential early neurodegenerative process. No family history of dementia reported. Plan: - Refer to neurology for evaluation of cognitive symptoms and demyelinating disease on brain MRI - Recommend lifestyle modifications: - Increase intake of vegetables and colorful fruits - Engage in cognitive activities (e.g., crossword puzzles, reading) - Advise family to monitor for behavioral changes #4bone density normal on calcium and vit D3 Recent cardiac stent placement Assessment: Patient underwent cardiac stent placement on January 10, 2025 (approximately 3 weeks ago). Currently on dual antiplatelet therapy with Plavix and aspirin. Patient reports some residual soreness and tenderness at the stent site. The cardiac condition is taking priority in her overall health management, delaying other planned procedures. Plan: - Continue current dual antiplatelet therapy (Plavix and aspirin) - Avoid strenuous activities with right arm to prevent lymphedema - Follow up with education program manager for ongoing management and clearance for future procedures - Reassess in 3 months for potential left breast biopsy, pending education program manager clearance Pending left breast biopsy Assessment: Left breast biopsy was previously recommended but has been delayed due to recent cardiac intervention and ongoing anticoagulation therapy. The biopsy cannot be safely performed while the patient is on dual antiplatelet therapy due to increased bleeding risk. Plan: - Defer left breast biopsy for at least 3 months - Reassess eligibility for biopsy once education program manager provides clearance to adjust anticoagulation therapy - Consider transitioning to single antiplatelet therapy (either Plavix or aspirin alone) when appropriate - Discuss potential use of Lovenox as a bridge therapy for biopsy procedure when cleared by cardiology Liver concerns Assessment: Patient reports recent hospitalization (3 weeks ago) with liver- related issues. The exact nature of the liver problem is unclear, and the patient has not yet followed up with a specialist for further evaluation. Plan: - Refer to hepatology for evaluation of recent liver issues and potential infection - Obtain medical records from recent hospitalization for liver concerns ORDERS: Order # Description [id number] Comprehensive Metabolic Panel - 12 + CBC with Auto Diff [id number] Thyroid Stimulating Hormone + Assay Triiodothyronine (T3) [id number] MD Follow Up 3 Months RETURN TO CLINIC: I reviewed the diagnosis, prognosis, and recommended treatment/procedure options with the patient (and/or their legal claims representative), including the potential benefits, risks, side effects and alternative therapies. We also discussed the option of no treatment and the possibility of clinical trial participation, if applicable. All questions were addressed, and they demonstrated understanding. They provided informed consent to proceed with the proposed plan of care. BILLING AND COMPLIANCE: I reviewed external records from providers outside my specialty as summarized above. I spent a total of 50 minutes on this patient?s care on the day of their visit excluding time spent related to any billed procedures. This time includes time spent with the patient as well as time spent documenting in the medical record, reviewing patients records and tests, obtaining history, placing orders, communicating with other healthcare professionals, counseling the patient, family or caregiver, and/or care coordination for the diagnoses above. Electronically Signed by: Case Jefferson MD T: 6:29 AM CC: Ricky?Nazario,? PCP: Yomi Berry Referring: Yomi Berry This document was completed utilizing speech recognition software. Grammatical errors, random word insertions, pronoun errors, and incomplete sentences are an occasional consequence of this system due to software limitations, ambient noise, and hardware issues. Any formal questions or concerns about the content, text or information contained within the body of this dictation should be directly addressed to the provider for clarification.
== END 2025-02-14 23:59 | disposition home or self-care (01) ==
LOC: SCTC 11:04
PROVIDERS: PCP Family Medicine; Referring Provider Family Medicine; Visit Provider Internal Medicine Hematology & Oncology
DX: Z08 Encounter for follow-up examination after completed treatment for malignant neoplasm (principal); Z85.3 Personal history of malignant neoplasm of breast; Z90.11 Acquired absence of right breast and nipple; Z92.21 Personal history of antineoplastic chemotherapy; R92.8 Other abnormal and inconclusive findings on diagnostic imaging of breast; G93.89 Other specified disorders of brain; Z95.5 Presence of coronary angioplasty implant and graft; Z79.82 Long term (current) use of aspirin; Z79.02 Long term (current) use of antithrombotics/antiplatelets; Z78.0 Asymptomatic menopausal state
CPT/HCPCS: 99212; G0463

== ENCOUNTER → 2025-02-07 | Outpatient (CLI) | payer MEDICARE, MEDICAID, SELFPAY ==
[2025-02-07 08:56] LABS: Basophils # (Auto) 0.1 Thou/mm3 (0.0-0.2); Basophils % (Auto) 1 % (0-2.5); Eosinophils # (Auto) 0.3 Thou/mm3 (0.0-0.5); Eosinophils % (Auto) 4 % (0-10); Hematocrit 32.3 % (36.0-46.0); Hemoglobin 10.8 g/dL (12.0-16.0); Immature Granulocytes Auto 0.02 Thou/mm3 (0.00-0.00); Immature Reticulocyte Fraction 12.5 % (3.0-15.9); Lymphocytes # (Auto) 1.6 Thou/mm3 (1.0-4.8); Lymphocytes % (Auto) 25 % (10-50); Mean Corpuscular HGB Conc 33.4 g/dl (31.0-37.0); Mean Corpuscular Hemoglobin 28.6 pg (25.0-35.0); Mean Corpuscular Volume 85 fL (80-100); Monocytes # (Auto) 0.5 Thou/mm3 (0.0-0.8); Monocytes % (Auto) 7 % (0-12); Neutrophils # (Auto) 3.9 Thou/mm3 (1.8-7.7); Neutrophils % (Auto) 62 % (37-80); Nucleated Red Blood Cell # 0.00 Thou/mm3 (0.00-0.00); Nucleated Red Blood Cell % 0 /100 WBC (0); Platelet Count 221 Thou/mm3 (140-440); RDW Standard Deviation 44.5 fL (36.4-46.3); Red Blood Count 3.78 Miln/mm3 (4.00-5.20); Reticulocyte % (Auto) 2.2 % (0.5-1.5); Reticulocyte Absolute Auto 82.8 Biln/L (25.0-75.0); Reticulocyte Hgb Content 31.1 pg (28.0-35.0); White Blood Count 6.3 Thou/mm3 (3.6-11.0)
[2025-02-07 09:14] LABS: Ferritin 33 ng/mL (7.3-270.7); Iron 38 mcg/dL (50-170); Percent Iron Saturation 11 % (20-55); Total Iron Binding Capacity 329 mcg/dL (250-425); Unsaturated Iron Binding 291 (225-295)
[2025-02-07 09:17] LABS: Alanine Aminotransferase 11 U/L (10-49); Albumin, Serum 4.2 gm/dL (3.4-4.8); Albumin/Globulin Ratio 1.7 (1.2-2.2); Alkaline Phosphatase 112 U/L (46-116); Anion Gap 10 (7-16); Aspartate Amino Transferase 16 U/L (0-34); BUN/Creatinine Ratio 20 Ratio (12-20); Bilirubin,Total 0.3 mg/dL (0.3-1.2); Blood Urea Nitrogen 16 mg/dL (9-23); Calcium 9.5 mg/dL (8.3-10.6); Calcium (Corrected) 9.5 mg/dL (8.5-10.1); Carbon Dioxide 25.1 mMol/L (20.0-31.0); Chloride 108 mMol/L (98-107); Creatinine (Component) 0.8 mg/dL (0.6-1.3); Globulin 2.5 gm/dL (2.3-3.5); Glucose 103 mg/dL (74-106); Osmolality,Calculated 286 (275-295); Potassium 4.5 mMol/L (3.4-5.1); Sodium 143 mMol/L (136-145); Total Protein 6.7 gm/dL (5.7-8.2); eGFR > 60 See Note
[2025-02-07 09:24] LABS: CA 15-3 18.5 U/mL (<32.4); Folate 11.83 ng/mL (>5.38); Vitamin B12 412 pg/mL (211-911)
== END | disposition home or self-care (01) ==
PROVIDERS: PCP Family Medicine; Referring Provider Internal Medicine Hematology & Oncology; Visit Provider Internal Medicine Hematology & Oncology
DX: C50.919 Malignant neoplasm of unspecified site of unspecified female breast (principal)
CPT/HCPCS: 36415; 80053; 82607; 82728; 82746; 83540; 83550; 85025; 85046; 86300

== ENCOUNTER → 2025-02-25 | Outpatient (CLI) | payer MEDICARE, MEDICAID, SELFPAY ==
[2025-02-25 12:18] LABS: Basophils # (Auto) 0.1 Thou/mm3 (0.0-0.2); Basophils % (Auto) 1 % (0-2.5); Eosinophils # (Auto) 0.2 Thou/mm3 (0.0-0.5); Eosinophils % (Auto) 3 % (0-10); Hematocrit 35.0 % (36.0-46.0); Hemoglobin 11.7 g/dL (12.0-16.0); Immature Granulocytes Auto 0.03 Thou/mm3 (0.00-0.00); Lymphocytes # (Auto) 1.9 Thou/mm3 (1.0-4.8); Lymphocytes % (Auto) 24 % (10-50); Mean Corpuscular HGB Conc 33.4 g/dl (31.0-37.0); Mean Corpuscular Hemoglobin 28.1 pg (25.0-35.0); Mean Corpuscular Volume 84 fL (80-100); Monocytes # (Auto) 0.4 Thou/mm3 (0.0-0.8); Monocytes % (Auto) 6 % (0-12); Neutrophils # (Auto) 5.3 Thou/mm3 (1.8-7.7); Neutrophils % (Auto) 67 % (37-80); Nucleated Red Blood Cell # 0.00 Thou/mm3 (0.00-0.00); Nucleated Red Blood Cell % 0 /100 WBC (0); Platelet Count 269 Thou/mm3 (140-440); RDW Standard Deviation 43.8 fL (36.4-46.3); Red Blood Count 4.17 Miln/mm3 (4.00-5.20); White Blood Count 8.0 Thou/mm3 (3.6-11.0)
[2025-02-25 12:41] LABS: Alanine Aminotransferase 11 U/L (10-49); Albumin, Serum 4.5 gm/dL (3.4-4.8); Albumin/Globulin Ratio 1.9 (1.2-2.2); Alkaline Phosphatase 106 U/L (46-116); Anion Gap 9 (7-16); Aspartate Amino Transferase 16 U/L (0-34); BUN/Creatinine Ratio 24 Ratio (12-20); Bilirubin,Total 0.4 mg/dL (0.3-1.2); Blood Urea Nitrogen 19 mg/dL (9-23); Calcium 9.5 mg/dL (8.3-10.6); Calcium (Corrected) 9.5 mg/dL (8.5-10.1); Carbon Dioxide 24.7 mMol/L (20.0-31.0); Chloride 108 mMol/L (98-107); Creatinine (Component) 0.8 mg/dL (0.6-1.3); Globulin 2.4 gm/dL (2.3-3.5); Glucose 110 mg/dL (74-106); Osmolality,Calculated 286 (275-295); Potassium 4.3 mMol/L (3.4-5.1); Sodium 142 mMol/L (136-145); Thyroid Stimulating Hormone 1.77 uIU/mL (0.55-4.78); Total Protein 6.9 gm/dL (5.7-8.2); eGFR > 60 See Note
[2025-03-01 06:44] LABS: T3,Total* 104 ng/dL (76-181)
== END | disposition home or self-care (01) ==
LOC: COPL 10:04
PROVIDERS: PCP Family Medicine; Referring Provider Internal Medicine Hematology & Oncology; Visit Provider Internal Medicine Hematology & Oncology
DX: C50.919 Malignant neoplasm of unspecified site of unspecified female breast (principal)
CPT/HCPCS: 36415; 80053; 84443; 84480; 85025

== ENCOUNTER 2025-05-13 10:39 | Outpatient (RCR) | payer MEDICARE, MEDICAID, SELFPAY ==
--- NOTE | 2025-05-14 21:52 | CTCFLWUP_ITS ---
Patient: KENNETH BURDICK : 1965 Page 8 of 9 FOLLOW UP NOTE DATE OF SERVICE: 05/13/2025 NAME: KENNETH BURDICK ACCOUNT: [id number] : 1965 AGE: 59 INTERVAL HISTORY: Kenneth, a postmenopausal woman with history of right mastectomy, cardiac stent placement about 3 months ago . Medical history included demyelinating brain disease, liver issues requiring recent hospitalization, and cancer. She was taking Plavix and aspirin following stent placement. Management included continuing dual antiplatelet therapy, deferring planned left breast biopsy pending associate professor of philosophy clearance, hepatology referral for liver evaluation, and neurology follow up for cognitive symptoms and demyelinating disease. Medical History - Demyelinating disease in the brain - Menopause - Carpal tunnel syndrome (suspected) - Liver issues, recently hospitalized - Heart condition requiring stent placement on January 10, 2025 - Right-side mastectomy - Cancer (unspecified type) Surgical History - Cardiac stent placement on January 10, 2025 - Right mastectomy (date not specified) Medications and Supplements - Plavix - Aspirin - Blood thinners Family History - Mother: Cancer, heart disease, at age 65 - Father: Cancer, heart disease, at age 75 Social History - Occupation: Engages in household activities including cooking and yard work - Physical Activity: Very active, 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 HEENT: Positive for neck tingling. Cardiovascular: Positive for chest tenderness at stent site. Musculoskeletal: Positive for joint pain, knee pain. Neurological: Positive for memory issues, word-finding difficulties. Objective: Laboratory, Imaging, and Diagnostic Test Results - MRI of the brain: Shows demyelinating disease ONCOLOGY HISTORY: DIAGNOSIS: Invasive adenocarcinoma DATE OF DIAGNOSIS: 12/28/2017 STAGE/TNM: [id number] TREATMENT HISTORY: Care?Plan Start?Date Cycle Day Intent HISTORY OF PRESENT ILLNESS: This is a 59-year-old Bangladeshi-speaking female with the following oncology history. 12/28/2017: The patient had surgery done for right breast mass 01/20/2018: Ms. Perry had right breast mastectomy 03/09/2018: Received 1 cycle of TCH chemotherapy at Dr. Lange's office in [place]. 03/30/2018 - 06/22/2018: Received 5 cycles of TCH plus Perjeta. 07/13/2018 - 03/23/2019: She received adjuvant Herceptin and Perjeta every 3 weeks for a total of 12 cycles. 03/15/2023: MRI of the brain with and without contrast 04/14/2023: PET/CT scan 04/14/2023: Unilateral left breast screening digital mammogram? 04/14/2023: Left breast ultrasound? 05/02/2023: Bilateral diagnostic mammograms? 05/02/2023: Right breast ultrasound 05/16/2023: Bilateral MRIs of the breast with and without contrast 05/17/2023: Repeat left breast ultrasound to be done in the presence of radiologist and biopsy of the mass if it is found in the left breast is requested. OTHER MEDICAL HISTORY/CONDITIONS: Right breast cancer - dx 2018 HTN Diabetes Covid - 2019 Anemia GERD Hyperlipidemia Right breast reconstruction - 2019- Dr. 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 aspirin - 81 mg 1 tab In the morning 2. atorvastatin - 80 mg 1 tab Daily 3. Augmentin - 500-125 mg 1 tab 1 tab twice dialy 4. Calcium 600 + D(3) - 600 mg-10 mcg (400 unit) 1 tab 1 tab twice daily 5. carvedilol - 25 mg 1 tab Twice a Day 6. clonidine - 0.1 mg 1 tab Daily 7. Cozaar - 100 mg 1 tab Daily 8. glipiZIDE - 5 mg 1 tab Twice a Day Medications Last Reconciled by Kenneth Araujo MD on 05/13/2025 ALLERGIES: No Known Drug Allergies REVIEW OF SYSTEMS: A complete 14-point review of systems was performed and is negative except as noted in interval history. PHYSICAL EXAMINATION: VITAL SIGNS: Temperature?98.1, B/P?142/84, Oxygen?Saturation?96% Weight?190?lbs PAIN: 0 - No pain ECOG Performance Status: 0 - Asymptomatic and fully active Patient is very upset Right breast with the TRAM reconstruction noted Left breast-patient is very tender so examination not completed LABORATORY DATA: I have personally reviewed and interpreted each of the patient?s relevant lab tests, abnormal findings are below: Date 02/07/25 02/25/25 ??WHITE?BLOOD?COUNT?(Thou/mm3) 7.2 8.0 ??RED?BLOOD?COUNT?(Miln/mm3) 4.02 4.17 ??HEMOGLOBIN?(gm/dl) 11.2?L 11.7?L ??HEMATOCRIT?(%) 33.6?L 35.0?L ??PLATELET?COUNT?(Thou/mm3) 245 269 ??NEUTROPHILS?%,?AUTO?(%) 61 67 ??LYMPH?%,?AUTO?(%) 27 24 ??NEUTROPHILS,?AUTO?(Thou/mm3) 4.4 5.3 ??GLUCOSE,RANDOM?(mg/dL) 95 110?H ??BLOOD?UREA?NITROGEN?(mg/dL) 14 19 ??CREATININE?(mg/dL) 0.80 0.80 ??SODIUM?(mmol/L) 143 142 ??POTASSIUM?(mmol/L) 4.4 4.3 ??CHLORIDE?(mmol/L) 107 108?H ??CrCl?(CandG)?(ml/min) 75.28 75.28 ??AST/SGOT?(Unit/L) 18 16 ??ALT/SGPT?(Unit/L) 11 11 ??ALKALINE?PHOSPHATASE?(Unit/L) 119?H 106 ??BILIRUBIN,?TOTAL?(mg/dL) 0.4 0.4 ??PROTEIN?TOTAL?(gm/dl) 7.1 6.9 ??ALBUMIN,?SERUM?(gm/dl) 4.4 4.5 ??GLOBULIN?(gm/dl) 2.7 2.4 ??ALBUMIN/GLOBULIN?RATIO 1.6 1.9 ??CALCIUM,?SERUM?(mg/dL) 9.7 9.5 ??CALCIUM?SERUM?(CORRECTED)?(mg/dL) 9.7 9.5 ASSESSMENT/PLAN: # 1 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 Diasgnosed in 12/2017 Initial lumpectomy but margins negative so had right mastectomy and reconstruction She had TCH followed bt TCHP and adjuvant HP completed Doing well with no eveidence of recuurence RaKenneth hernández., a patient with a history of breast cancer and mastectomy with TRAM flap reconstruction, presents for follow-up regarding a suspicious mass in the left breast found on ultrasound. Suspicious breast mass Assessment: A recent ultrasound on September 28 revealed a suspicious mass in the left breast, warranting further investigation. The patient has not yet undergone a biopsy and is waiting for cardiac clearance . Repeat mammogram to see the size of breast mass. Gastrointestinal issues Assessment: Patient has reported stomach issues, necessitating a referral to gastroenterology for further evaluation. Plan: - Follow up on gastroenterology referral approved on July 02 - Advise patient that she can see any dry kiln worker without needing additional authorization Vascular concerns Assessment: Patient has a history of leg issues, possibly related to vascular problems. A recent ultrasound showed no evidence of blood clots. Plan: - Continue current anticoagulation therapy as prescribed by primary care physician - Reinforce importance of dietary modifications to support vascular health - Monitor for any new or worsening leg symptomsLeft breast retroareolar mass lesion in the left breast Again patient has been referred for biopsy but is still not completed Patient did had in 2022 ultrasound-guided biopsy of the left breast lesion showed intraductal papilloma and at that time was planned for mastectomy but Ms. Burdick could not find a breast surgeon whom she likes I will send patient back to Dr. Nguyen Patient will explore reconstruction once mastectomy is completed by him She understand that reconstruction once mastectomy is complete is very disfiguring in most cases as she will need implant to preserve the shape of the breast. Patient had a negative biopsy in the past with interventional radiology and would like to follow-up with the Dr Nguyen now #3 MRI scan of the brain 02/2023 showed punctate focus increased signal in the right parietal white matter suspicious for demyelinating disease. Assessment: Patient reports occasional word-finding difficulties, forgetting destinations while driving, and losing train of thought. Brain MRI has shown evidence of demyelinating disease, raising concern for potential early neurodegenerative process. No family history of dementia reported. Plan: - Refer to neurology for evaluation of cognitive symptoms and demyelinating disease on brain MRI - Recommend lifestyle modifications: - Increase intake of vegetables and colorful fruits - Engage in cognitive activities (e.g., crossword puzzles, reading) - Advise family to monitor for behavioral changes #4bone density normal on calcium and vit D3 ORDERS: Order # Description [id number] Left + Breast Ultrasound RETURN TO CLINIC: I reviewed the diagnosis, prognosis, and recommended treatment/procedure options with the patient (and/or their legal safety representative), including the potential benefits, risks, side effects and alternative therapies. We also discussed the option of no treatment and the possibility of clinical trial participation, if applicable. All questions were addressed, and they demonstrated understanding. They provided informed consent to proceed with the proposed plan of care. BILLING AND COMPLIANCE: I reviewed external records from providers outside my specialty as summarized above. I spent a total of 50 minutes on this patient?s care on the day of their visit excluding time spent related to any billed procedures. This time includes time spent with the patient as well as time spent documenting in the medical record, reviewing patients records and tests, obtaining history, placing orders, communicating with other healthcare professionals, counseling the patient, family or caregiver, and/or care coordination for the diagnoses above. Electronically Signed by: {Object.Sanct_ID*PnP.NameFL@M}, {Object.Sanct_ID*PnP.Suffix@U} D: {Object.Sanct_Date} T: {Object.Sanct_Time} CC: Ricky?Nazario,? PCP: Yomi Berry Referring: Yomi Berry This document was completed utilizing speech recognition software. Grammatical errors, random word insertions, pronoun errors, and incomplete sentences are an occasional consequence of this system due to software limitations, ambient noise, and hardware issues. Any formal questions or concerns about the content, text or information contained within the body of this dictation should be directly addressed to the provider for clarification.
== END 2025-05-17 23:59 | disposition home or self-care (01) ==
LOC: SCTC 10:39
PROVIDERS: PCP Family Medicine; Referring Provider Family Medicine; Visit Provider Internal Medicine Hematology & Oncology
DX: Z08 Encounter for follow-up examination after completed treatment for malignant neoplasm (principal); Z85.3 Personal history of malignant neoplasm of breast; Z90.11 Acquired absence of right breast and nipple; G37.9 Demyelinating disease of central nervous system, unspecified; R92.8 Other abnormal and inconclusive findings on diagnostic imaging of breast
CPT/HCPCS: 99212; G0463

== ENCOUNTER → 2025-07-01 | Outpatient (CLI) | payer MEDICARE, MEDICAID, SELFPAY ==
--- NOTE | 2025-07-01 10:15 | XR_ITS ---
Examination: Breast ultrasound, unilateral, left Date and time of exam: June 29, 2025, 0946 hours INDICATIONS: Left breast pain 1 year, family history of breast cancer Technique: Real-time wallace scale ultrasonographic imaging performed left breast including all 4 quadrants as well as nipple retroareolar and axillary region. Findings: 2:00 intramammary lymph node 6 x 4 mm 3:00 nodule circumscribed 3 x 3 mm 4:00 nodule indistinct margins 4 x 6 mm 4:00 nodule retroareolar 5 x 7 mm 11:00 cyst 12 x 4 mm Retroareolar probable scar formation 13 x 17 mm IMPRESSION: BI-RADS Category 4: Suspicious for malignancy Suspicious mass 4 o'clock position left breast, biopsy is needed to exclude breast carcinoma, this mass is amenable to ultrasound-guided breast biopsy for diagnosis 3-month follow-up left breast mammogram is needed to document stability of scar formation in the retroareolar region left breast
== END | disposition home or self-care (01) ==
PROVIDERS: PCP Family Medicine; Referring Provider Internal Medicine Hematology & Oncology; Visit Provider Internal Medicine Hematology & Oncology
DX: N64.89 Other specified disorders of breast (principal); N63.23 Unspecified lump in the left breast, lower outer quadrant; C50.919 Malignant neoplasm of unspecified site of unspecified female breast
CPT/HCPCS: 76641